=== PATIENT | male | born 1970 | race Caucasian/White ===

== ENCOUNTER 2019-03-07 | Emergency (ER) | payer OTHER, SELFPAY ==
[2019-03-07] VITALS (10 sets, daily range): BP systolic 108–157; BP diastolic 76–104; PULSE 63–90; RESP 14–19; TEMP 37.1; O2SAT 96–98; BMI 22.9
--- NOTE | 2019-03-07 00:09 | EKG12_ITS ---
Test Reason : CP Blood Pressure : / mmHG Vent. Rate : 089 BPM Atrial Rate : 089 BPM P-R Int : 114 ms QRS Dur : 082 ms QT Int : 354 ms P-R-T Axes : 063 051 039 degrees QTc Int : 430 ms Normal sinus rhythm with sinus arrhythmia Normal ECG Confirmed by HALEY OSORIO, DANISHA ([id number]), development editor DEMETRIUS NEWELL ([id number]) on 03/12/2019 9:39:13 A M Referred By: DIANNE Confirmed By:SANA DE LEON MD
--- NOTE | 2019-03-07 00:09 | RAD_ITS ---
HISTORY: CPChest PainRAD - Chest EXAM: XR Chest 2 Views: COMPARISON: None FINDINGS: # of images incl. paperwork: 2 Lungs are clear. Heart is not enlarged. Degenerative disc disease with minimal wedging to the T12 vertebral body and focal kyphosis about the T12 vertebral body is of unknown acuity. Pulmonary vascularity is distinct. No effusions. RAD/Chest PA and Lateral IMPRESSION: Lungs and heart are normal. Focal kyphosis surrounding the T12 vertebral body with degenerative disc disease. The appearance is that of a chronic disease.. at 0127 Reported and signed by: Anurag Simmons MD Electronically Signed: Anurag Simmons MD at 1:26 EDT Tel , Service support ,
[2019-03-07 00:10] LABS: Bedside Glucose 197 mg/dL (70-110)
--- NOTE | 2019-03-07 00:10 | CT_ITS ---
HISTORY: PARESTHESIA,NUMBNESS AND WEAKNESS TO LT HAND AND ARM SINCE 2030PM ,ELEVATED BP,CHEST PAINHX:ASTHMA,SEIZURES-TAKES NO MEDS TECHNIQUE: Multiple axial images were obtained of the brain without intravenous contrast. A radiation dose optimization technique was used for this scan. COMPARISON: None FINDINGS: # of images incl. paperwork: 231 Visualized portions of the paranasal sinuses and mastoid air cells are free of disease. Brain volume is normal. Munoz-white differentiation is preserved. No hydrocephalus. No acute ischemia. No acute intracranial hemorrhage. CT/Brain/Head without Contrast IMPRESSION: Normal. ASPECT 10. Individualized dose optimization techniques were used for this CT. at 0048 Reported and signed by: Anurag Simmons MD Electronically Signed: Anurag Simmons MD at 0:47 EDT Tel , Service support ,
--- NOTE | 2019-03-07 00:11 | ED.VIS.GEN ---
History of Present Illness Chief Complaint: Chest Pain Informant: Patient Onset: Yesterday Narrative: Stated that since yesterday approximately 30 hours ago he developed some substernal chest tightness. It seems to be constant. Is not on radiating. No home treatment. Current severity is mild. It is not exertion related. Last stress test 3 years ago normal. Denies any cardiac risk factors except he smoked for 4 years approximately 20 years ago. No family history of early heart attacks. Denies any pulmonary embolism or dissection risk factors. No history of hypertension, diabetes, high cholesterol. Denies any leg pain. Patient stated he is felt intermittent lightheadedness over the last 30 hours as well. He finished his shift yesterday and went home and had persistent symptoms throughout the night. Symptoms throughout the day at work and his boss dropped him off here on his way home from work. He also stated throughout this time 30 hours he has had some paresthesias and occasional weakness in his left arm. They are not a specific location but diffuse. No History of stroke or TIA. Past Medical History - Allergies and Home Meds Allergies/Adverse Reactions: Allergies No Known Allergies Allergy (Verified 03/07/19 00:13) Primary Care Physician: Care Physician,No Primary [Primary Care Provider] - Prior records reviewed: Yes Past Medical History: - - GERD, seizure Surgical History: - - Reviewed Smoking Status: Former smoker - Smoked for 4 years Alcohol: None Drugs: None Review of Systems General: Denies: Chills, Fever, Sweats Eyes: Denies: Visual changes - bilaterally, Diplopia ENT: Denies: Rhinorrhea, Sore throat Cardiovascular: Reports: Chest pain. Denies: Palpitations Respiratory: Denies: Dyspnea, Cough, Dyspnea on exertion Gastrointestinal: Denies: Abdominal pain, Nausea, Vomiting, Diarrhea, Melena, Hematochezia Genitourinary: Denies: Dysuria, Hematuria, Frequency Musculoskeletal: Denies: Back pain, Extremity Pain Skin: Denies: Rash, Wounds Neurological: Reports: Parasthesia - See HPI, Numbness. Denies: Headache, Weakness Physical Exam Vital Signs/Narrative: Vital Signs Temp Pulse Resp BP Pulse Ox 03/07/19 00:01 98.7 F 89 19 H 157/104 H 96 General: Well nourished, Well developed, No Acute Distress Head: Normocephalic, Atraumatic Eyes: Perrl, EOMI ENT: Moist mucous membranes, No rhinorrhea Neck: Supple, Nontender Cardiovascular: Regular rate, Regular rhythm, No murmurs Respiratory: No distress, CTA bilaterally, Chest nontender Abdomen: Soft, Nontender, Nondistended, Normal bowel sounds Back: Nontender, Normal Inspection Extremities: Nontender, No edema Skin: Normal color, No rash Neurological: Alert, Oriented x3, Cranial nerves II-XII grossly intact, Normal Strength, Normal Sensation, Normal Gait, - - Neuro exam normal. NIH stroke scale 0. Negative for: Normal DTR, Confused, Disoriented, Weakness, Left side facial droop, Right side facial droop Psychological: Normal affect, Normal Mood Diagnostic/Tx/Re-eval Impressions Chest X-Ray 03/07/19 00:09 IMPRESSION: Lungs and heart are normal. Focal kyphosis surrounding the T12 vertebral body with degenerative disc disease. The appearance is that of a chronic disease.. at 0127 Reported and signed by: Anurag Simmons MD Electronically Signed: Anurag Simmons MD at 1:26 EDT Tel , Service support , Brain CT 03/07/19 00:10 IMPRESSION: Normal. ASPECT 10. Individualized dose optimization techniques were used for this CT. at 0048 Reported and signed by: Anurag Simmons MD Electronically Signed: Anurag Simmons MD at 0:47 EDT Tel , Service support , Chest CTA 03/07/19 01:09 IMPRESSION: No pulmonary embolism, aortic aneurysm, aortic dissection, or pneumonia. Individualized dose optimization techniques were used for this CT. at 0331 Reported and signed by: Anurag Simmons MD Electronically Signed: Anurag Simmons MD at 3:30 EDT Tel , Service support , 03/07/19 00:09 Chest PA and Lateral [RAD] Stat 03/07/19 00:10 Brain/Head without Contrast [CT] Stat 03/07/19 01:09 CTA Chest W/WO Contrast [CT] Stat Laboratory Results 03/07/19 03/07/19 03/07/19 00:04 00:04 00:04 WBC 7.3 RBC 4.53 L Hgb 15.5 Hct 44.6 MCV 98.5 H MCH 34.2 H MCHC 34.8 RDW Std Deviation 46.4 H RDW Coeff of Jett 12.7 Plt Count 182 MPV 8.7 Immature Gran % (Auto) 0.300 Neut % (Auto) 81.9 H Lymph % (Auto) 9.3 L Burnett % (Auto) 8.0 Eos % (Auto) 0.1 Baso % (Auto) 0.4 Absolute Neuts (auto) 6.0 Absolute Lymphs (auto) 0.68 L Nucleated RBC % 0 PT INR APTT Sodium 139 Potassium 3.2 L Chloride 102 Carbon Dioxide 30.0 Anion Gap 7 BUN 8 Creatinine 0.97 Estim Creat Clear Calc 75.77 Est GFR (MDRD) Af Amer 107 Est GFR (MDRD) Non-Af 88 BUN/Creatinine Ratio 8.3 L Glucose 178 H Calcium 8.6 Troponin I < 0.015 POC Glucose 197 H 03/07/19 00:04 WBC RBC Hgb Hct MCV MCH MCHC RDW Std Deviation RDW Coeff of Jett Plt Count MPV Immature Gran % (Auto) Neut % (Auto) Lymph % (Auto) Burnett % (Auto) Eos % (Auto) Baso % (Auto) Absolute Neuts (auto) Absolute Lymphs (auto) Nucleated RBC % PT 13.1 INR 1.0 APTT 27.3 Sodium Potassium Chloride Carbon Dioxide Anion Gap BUN Creatinine Estim Creat Clear Calc Est GFR (MDRD) Af Amer Est GFR (MDRD) Non-Af BUN/Creatinine Ratio Glucose Calcium Troponin I POC Glucose - Medical Decision Making EKG obtained shows sinus rhythm at a rate of 89 with mild sinus arrhythmia. No ischemic findings. Lab work chest x-ray CT had obtained. Patient given a dose of aspirin as well as sublingual nitroglycerin. Lab work shows potassium of 3.2. CBC otherwise normal. Coags negative. Troponin negative. Patient's chest x-ray shows nothing acute. CT Angio of the test done to rule out aortic dissection due to his chest discomfort with arm paresthesia. This was negative for dissection PE or other acute abnormality. CT head was negative as well. On reevaluation the patient is resting comfortably. He still has some mild paresthesias in his left hand. His chest tightness is pretty much resolved after nitro. I recommended admission to the patient for further evaluation and treatment of his chest discomfort left arm paresthesia with intermittent weakness. He understands he may have acute coronary syndrome. He also understands he may have a stroke. I recommended admission for further evaluation including imaging studies of his brain. The patient does not want this and wants to be discharged. He is of sound mind. He will follow-up as an outpatient. He was given her referral to family doctor as well as neurology. He will return if he worsens. He understands the risk of going home. ED Disposition - Plan for ED Patient: Disposition: Against Medical Advice Diagnosis: Chest pain at rest, Arm paresthesia, left, Left arm weakness Instructions: CHEST PAIN, Uncertain Cause, Paraesthesias Referrals: Justin Dickinson MD [STAFF PHYSICIAN] - Danilo Flores MD [STAFF PHYSICIAN] -
[2019-03-07 00:16] LABS: Absolute Lymphocyte Count 0.68 X10^3/uL (0.83-4.51); Basophil# 0.03 X10^3/uL; Basophil% 0.4 % (0-1); Eosinophil# 0.01 X10^3/uL; Eosinophils% 0.1 % (0-5); Hematocrit 44.6 % (40-54); Hemoglobin 15.5 g/dL (13.0-16.5); Lymphocyte # 0.68 X10^3/ul (4.0); Lymphocyte % 9.3 % (19-41); Mean Corp Hgb Conc 34.8 g/dL (32-36); Mean Corpuscular Hgb 34.2 pg (27.0-32.0); Mean Corpuscular Volume 98.5 fL (80-94); Mean Platelet Vol. 8.7 fl (6.2-12.0); Monocyte# 0.58 X10^3/uL; NRBC Flagged by Analyzer 0 % (0-5); Neutrophil # 5.97 X10^3/uL (2.7-7.7); Neutrophil % 81.9 % (47-70); Platelet Count 182 K/mm3 (150-450); RBC Distribution Width CV 12.7 % (11.6-14.6); RBC Distribution Width SD 46.4 fl (35.1-43.9); Red Blood Count 4.53 M/mm3 (4.6-6.2); White Blood Count 7.3 K/mm3 (4.4-11.0)
[2019-03-07 00:22] LABS: Prothrombin Time (Protime)PT. 13.1 SECONDS (11.7-14.9)
[2019-03-07 00:23] LABS: Partial Thromboplast Time 27.3 Seconds (24.1-36.2)
[2019-03-07 00:31] LABS: Anion Gap 7 (5-15); BUN 8 mg/dL (7-18); BUN/Creat Ratio 8.3 RATIO (10-20); Calcium,Total 8.6 mg/dL (8.5-10.1); Chloride 102 mmol/L (98-107); Creatinine, Serum 0.97 mg/dL (0.70-1.30); EST Glomerular Filtration Rate 88 mL/min (>60); Est Glom Filt Rate - Afr Amer 107 mL/min (>60); Estimated Creatinine Clearance 75.77 ml/min; Glucose 178 mg/dL (74-106); Potassium 3.2 mmol/L (3.5-5.1); Sodium Level 139 mmol/L (136-145)
[2019-03-07] MEDS: Aspirin 81 MG TAB.CHEW 324 MG PO (00:45)
[2019-03-07] MEDS: Nitroglycerin SL (ED/IMG/CATH) 0.4 MG TABLET SUBLINGUAL ×3 (00:46→00:55)
--- NOTE | 2019-03-07 01:09 | CT_ITS ---
HISTORY: Chest pain for one day. Numbness and weakness the left hand and arm. Evaluate for dissection and the speech and with asthma. Technique: Following the uneventful administration of 75 mL of Isovue-370 contiguous helical images were obtained through the chest. 2-D reformats were performed on the acquisition scanner. The only comparison imaging is a CT scan of the head and pelvis from April 10, 2017 which begins within the heart and extends down more inferiorly. A chest x-ray is also available from about an hour earlier. 683 images Findings: Lungs are clear. No effusions. A tiny amount of gas is associated with the right clavicular manubrial joint and to a lesser degree the left clavicular manubrial joint. No rib lesions are perceived. The patient has 13 oly of ribs. The patient has a focal kyphosis at the T13 vertebral body due to some minimal wedging to the T13 vertebral body, but mostly due to the T12-L1 degenerative disc disease. Anterior enthesophytes are present at many levels. T13 is minimally posteriorly subluxed on L1. L1 is minimally posteriorly subluxed on L2. The lowest ribs at T13 are small There is minimal elongation to the thoracic aorta. There is no aneurysm or dissection. The heart is not enlarged. No axillary, mediastinal, nor hilar adenopathy. Timing of contrast bolus is more optimized for the aortic arch and the pulmonary veins than the pulmonary arteries. No pulmonary emboli are perceived. The negative predictive value of this study to exclude pulmonary emboli is diminished relative to if the contrast bolus has been timed optimized for the pulmonary artery. The thyroid gland is not enlarged. The gallbladder remains. The liver, spleen, pancreas, and adrenal glands are normal. Mild hydronephrosis to the kidneys is suspected. The abdominal aorta is normal. Stomach is mostly decompressed. CT/CTA Chest W/WO Contrast IMPRESSION: No pulmonary embolism, aortic aneurysm, aortic dissection, or pneumonia. Individualized dose optimization techniques were used for this CT. at 0331 Reported and signed by: Anurag Simmons MD Electronically Signed: Anurag Simmons MD at 3:30 EDT Tel , Service support ,
[2019-03-07] MEDS: 0.9% Normal Saline 1,000 ML 1000 ML IV (01:42)
--- NOTE | 2019-03-07 03:56 | NURSING ---
Pt explained risk of leaving AMA by nurse and Dr. Flynn. no further questions at this time.
== END 2019-03-07 03:56 | disposition left against medical advice (07) ==
PROVIDERS: Emergency Provider Emergency Medicine
DX: R07.9 Chest pain, unspecified (principal); R53.1 Weakness; R20.2 Paresthesia of skin; K21.9 Gastro-esophageal reflux disease without esophagitis; Z87.891 Personal history of nicotine dependence
CPT/HCPCS: 70450; 71046; 71275; 80048; 82962; 84484; 85025; 85610; 85730; 93005; 96360; 99285; J7030; Q9967

== ENCOUNTER 2019-06-01 18:20 | Emergency (ER) | payer OTHER, SELFPAY ==
[2019-03-07 00:01] VITALS: BMI 22.9
[2019-06-01 18:21] VITALS: BP 162/89; PULSE 130; RESP 16; TEMP 37.1; O2SAT 98; BMI 22.4
--- NOTE | 2019-06-01 18:55 | RAD_ITS ---
STUDY: X-RAY CHEST REASON FOR EXAM: Male, 48 years old. chest pain TECHNIQUE: Frontal view of the chest was performed COMPARISON: 07 March 2019 FINDINGS: The lungs are clear and expanded. There is no demonstrated pleural abnormality. Normal size heart. Normal mediastinum and vinnie. Normal visualized pulmonary arteries. Normal visualized aortic arch and descending thoracic aorta. Normal visualized thoracic spine. Normal visualized ribs, clavicles, and shoulders. There is no demonstrated abnormality of the visualized soft tissue structures of the upper abdomen. RAD/Chest 1 View (Portable) IMPRESSION: Normal x-ray examination of the chest. Electronically Signed: Tanja Mchugh, at 19:16 EST Tel , Service support ,
--- NOTE | 2019-06-01 18:55 | EKG12_ITS ---
Test Reason : Blood Pressure : / mmHG Vent. Rate : 102 BPM Atrial Rate : 102 BPM P-R Int : 118 ms QRS Dur : 082 ms QT Int : 330 ms P-R-T Axes : 056 043 040 degrees QTc Int : 430 ms Sinus tachycardia Otherwise normal ECG Confirmed by SANDRA OSORIO, JOLANTA ([id number]), writer editor DEMETRIUS NEWELL ([id number]) on 06/03/2019 8:59:41 AM Referred By: DAO Confirmed By:JOLANTA FLORES MD
--- NOTE | 2019-06-01 18:55 | ED.VISSUMM ---
- ER Visit Summary Date of Service: 06/01/19 Chief Complaint: I do not feel well History of Present Illness: The patient is a 48 M states he has had intermittent lightheadedness and decreased energy. Mild nausea but no vomiting or diarrhea. No fever or chills. No dysuria. No melena. No constipation. No chest pain or abdominal pain. Patient just says he has not felt well today and he went to be evaluated. He felt like his heart was going faster than normal. But he denied chest pain or shortness of breath. Physical Examination: Middle-aged male no acute distress. Vital signs are stable afebrile. Pulse ox 98% on room air no signs hypoxia. On my exam it is not that high. Closer to 110. HEENT exam unremarkable. Neck nontender. Lungs clear to auscultation bilaterally. Heart tachycardic rate about 110 no murmur. Abdomen soft nontender normal bowel sounds no peritoneal signs. Remedies moves all 4. Equal symmetrical radial pulses. Calves are nontender without edema or cords. Normal motor strength both upper and lower extremities. Normal range of motion. Neurologically is awake alert with no focal motor deficits. Test Results: Portable 1 view was read as normal both by myself and the radiologist. Normal cardiac silhouette and lung mathew. EKG sinus rhythm rate of 102 no acute signs of [place] or ischemia. White count of 5 hemoglobin 14 no bands. Chemistries normal. Troponin normal. EKG is unchanged from prior. Emergency Department Course and Treatment: Repeat exam patient is doing well at 1950 p.m. and will be discharged home. Treatment Plan: Patient with malaise and reported subjective accelerated heart rate. Disposition: dc Impression: Acute generalized malaise of uncertain etiology This note was generated with [employer] dictation software. It may contain incorrect words, spelling, and punctuation that were not noted in review of the chart prior to signing ED Disposition - Plan for ED Patient: Referrals: Care Physician,No Primary [Primary Care Provider] -
[2019-06-01 19:28] LABS: Absolute Neutrophil Count 4.7 X10^3/uL (2.0-7.7); Basophil# 0.01 X10^3/uL; Basophil% 0.2 % (0-1); Eosinophil# 0.01 X10^3/uL; Eosinophils% 0.2 % (0-5); Hematocrit 42.5 % (40-54); Hemoglobin 14.8 g/dL (13.0-16.5); Lymphocyte % 7.3 % (19-41); Mean Corp Hgb Conc 34.8 g/dL (32-36); Mean Corpuscular Hgb 34.1 pg (27.0-32.0); Mean Corpuscular Volume 97.9 fL (80-94); Monocyte# 0.34 X10^3/uL; Monocyte% 6.2 % (0-10); NRBC Flagged by Analyzer 0 % (0-5); Neutrophil # 4.67 X10^3/uL (2.7-7.7); Neutrophil % 85.4 % (47-70); POSITIVE DIFFERENTIAL YES; Platelet Count 171 K/mm3 (150-450); RBC Distribution Width CV 11.9 % (11.6-14.6); RBC Distribution Width SD 43.2 fl (35.1-43.9); Red Blood Count 4.34 M/mm3 (4.6-6.2); White Blood Count 5.5 K/mm3 (4.4-11.0)
[2019-06-01 19:31] LABS: Anion Gap 7 (5-15); BUN 9 mg/dL (7-18); BUN/Creat Ratio 9.9 RATIO (10-20); Calcium,Total 8.2 mg/dL (8.5-10.1); Chloride 106 mmol/L (98-107); Creatinine, Serum 0.91 mg/dL (0.70-1.30); EST Glomerular Filtration Rate 95 mL/min (>60); Est Glom Filt Rate - Afr Amer 115 mL/min (>60); Estimated Creatinine Clearance 80.76 ml/min; Glucose 153 mg/dL (74-106); Potassium 3.7 mmol/L (3.5-5.1); Sodium Level 140 mmol/L (136-145)
[2019-06-01 19:38] LABS: Differential Indicated SCAN CRITERIA MET
--- NOTE | 2019-06-01 19:51 | ED.DEP ---
ED Disposition - Plan for ED Patient: Disposition: Home or Assisted Living Instructions: WEAKNESS, Unk Cause Referrals: Layo Leon MD [STAFF PHYSICIAN] - 3-5 Days if not improving Additional Instructions: All your tests, x-rays and EKG were normal today. I referred you to a local doctor follow-up if not improving. Plenty of fluids and rest return to the ER feeling worse.
[2019-06-01 19:59] VITALS: BP 130/88; PULSE 87; RESP 16; O2SAT 97
--- NOTE | 2019-06-01 20:00 | ED.RN ---
REVIEWED D/C INSTRUCTIONS, FOLLOW UP CARE, AND S/S THAT WOULD WARRANT A RETURN TO THE ED WITH PT. PT VERBALIZED AN UNDERSTANDING AND DENIES FURTHER QUESTIONS FOR THIS RN. PT SKIN P/W/D, RESP EVEN AND UNLABORED, PT A&O X 3, NO DISTRESS NOTED. PT AMBULATED OUT OF ED, GAIT STEADY.
[2019-06-01 20:36] LABS: Differential Comment SCANNED; Platelet Estimate ADEQUATE (ADEQ); Red Cell Morphology NORM C+C NORMAL (NORM C&C)
== END 2019-06-01 20:01 | disposition home or self-care (01) ==
PROVIDERS: Emergency Provider Emergency Medicine
DX: R53.81 Other malaise (principal); F17.220 Nicotine dependence, chewing tobacco, uncomplicated
CPT/HCPCS: 71045; 80048; 84484; 85025; 93005; 99285; A4216

== ENCOUNTER 2019-11-02 09:22 | Emergency (ER) | payer OTHER, SELFPAY ==
[2019-11-02 09:24] VITALS: BP 149/91; PULSE 84; RESP 17; TEMP 36.4; O2SAT 94; BMI 22.5
[2019-11-02 09:33] VITALS: BMI 22.5
--- NOTE | 2019-11-02 09:40 | CT_ITS ---
STUDY: CT BRAIN WITHOUT CONTRAST REASON FOR EXAM: Male, 49 years old. Numbness and tingling in the left hand and leg. History of seizure. RADIATION DOSAGE (If Supplied By Facility): CTDIvol = ( 44.99 ) mGy, DLP = ( 779.24 ) mGycm TECHNIQUE: Transaxial CT imaging of the brain was performed without administration of intravenous contrast material. Coronal and sagittal reconstructions were performed. Individualized dose optimization techniques were used for this CT. COMPARISON: CT head without contrast 03/07/2019. FINDINGS: Normal soft tissue structures. Normal calvarium. Normal size ventricles and extra-axial spaces for the patient''s age. Normal white matter tracts of the cerebral hemispheres. Normal basal ganglia and thalami. Normal brainstem. Normal cerebellum. There is no intracranial hemorrhage. There are no findings of an acute ischemic infarction. Normal visualized paranasal sinuses. CT/Brain/Head without Contrast IMPRESSION: Normal unenhanced CT scan of the brain and unchanged when compared to 03/07/2019. Electronically Signed: Jf Lopez MD at 10:31 EDT , Service support ,
--- NOTE | 2019-11-02 09:41 | EKG12_ITS ---
Test Reason : NEURO Blood Pressure : / mmHG Vent. Rate : 067 BPM Atrial Rate : 067 BPM P-R Int : 122 ms QRS Dur : 082 ms QT Int : 392 ms P-R-T Axes : 051 054 049 degrees QTc Int : 414 ms Normal sinus rhythm Normal ECG Confirmed by JOLANTA FLORES MD ([id number]), book editor TONY HERNANDEZ ([id number]) on 11/04/2019 10:13:59 AM Referred By: JOCELYN Confirmed By:JOLANTA FLORES MD
--- NOTE | 2019-11-02 09:42 | ED.VISSUMM ---
- ER Visit Summary Date of Service: 11/02/19 Chief Complaint: Paresthesias History of Present Illness: The patient is a 49 M who presents with paresthesias that began approximately 30 minutes prior to arrival. Patient states it was in his left forearm and wrist area and left leg. Patient states that he tried to stand up from a seated position and fell backwards. Patient states he was able to stand on his second attempt. Patient denies any weakness. Patient states his paresthesias are improving. Patient denies any headaches. Patient denies any nausea or vomiting. Patient denies any chest pain. Physical Examination: Vital signs are stable. Patient is afebrile. Patient is in no acute distress. Cranial nerves II through XII are intact. Strength is 5/5 bilaterally upper and lower extremities. There are no sensory deficits. Deep tendon reflexes are 2+/4 bilaterally in the upper and lower extremities. Ckhzfi-at-pmzv and tvok-ci-mqtr is intact. Pupils are equal, round, and reactive to light bilaterally. Extraocular muscles are intact. There are no visual field deficits. Neck is supple. Trachea is midline. There is no JVD. Heart was regular rate and rhythm. Lungs are clear and equal bilaterally. Abdomen is soft. Bowel sounds are normal. There is no tenderness. Test Results: EKG shows normal sinus rhythm with a rate of 67. There are no acute ST or T wave changes. CBC and metabolic profile were within normal limits. Urinalysis does not show any evidence of urinary tract infection. CT scan of the brain was obtained. There is no acute intracranial abnormality. This was unchanged compared to CT scan of 03/07/2019. This was interpreted by the radiologist and reviewed by myself. Emergency Department Course and Treatment: Stroke team was not activated since the patient's history changed between the triage nurse and myself. Patient also contradicted himself with his symptoms on my exam. Since his history of paresthesias was not exactly reliable and since his neurologic exam was normal, I do not feel stroke team was necessary. Patient was advised of his findings. Patient was given IV fluids and Zofran. Patient is feeling better on reevaluation. Patient was instructed to follow-up with his primary care physician in 5 to 7 days. Patient understood and was agreeable with the plan. All questions were answered. Disposition: Discharge home Impression: 1. Paresthesias This note was generated with [employer] software. It may contain incorrect words, spelling, and punctuation that were not noted in review of the chart prior to signing ED Disposition - Plan for ED Patient: Disposition: Home or Assisted Living Diagnosis: Paresthesias Instructions: ED Paraesthesias Referrals: Hilda Riddle MD [STAFF PHYSICIAN] - 5-7 Days
[2019-11-02 09:52] LABS: Absolute Lymphocyte Count 0.59 X10^3/uL (0.83-4.51); Absolute Neutrophil Count 6.6 X10^3/uL (2.0-7.7); Basophil# 0.03 X10^3/uL; Basophil% 0.4 % (0-1); Eosinophil# 0.01 X10^3/uL; Eosinophils% 0.1 % (0-5); Hematocrit 43.3 % (40-54); Hemoglobin 14.7 g/dL (13.0-16.5); Lymphocyte # 0.59 X10^3/ul (4.0); Lymphocyte % 7.7 % (19-41); Mean Corp Hgb Conc 33.9 g/dL (32-36); Mean Corpuscular Hgb 34.2 pg (27.0-32.0); Mean Corpuscular Volume 100.7 fL (80-94); Mean Platelet Vol. 8.2 fl (6.2-12.0); Monocyte# 0.42 X10^3/uL; Monocyte% 5.5 % (0-10); NRBC Flagged by Analyzer 0 % (0-5); Neutrophil # 6.55 X10^3/uL (2.7-7.7); POSITIVE DIFFERENTIAL YES; Platelet Count 178 K/mm3 (150-450); RBC Distribution Width CV 12.5 % (11.6-14.6); RBC Distribution Width SD 46.3 fl (35.1-43.9); White Blood Count 7.6 K/mm3 (4.4-11.0)
[2019-11-02] MEDS: 0.9% Normal Saline 1,000 ML 1000 ML IV (09:56)
[2019-11-02] MEDS: Ondansetron 4 MG/2 ML Vial IV (09:56)
[2019-11-02 09:57] VITALS: BP 133/76; BP 140/81; BP 142/83; PULSE 69; PULSE 70; PULSE 73
[2019-11-02 10:06] LABS: Mucous, Urine 0 SEEN /hpf (<or=2+); Squamous Epithelial Cells - UA 0 SEEN /hpf (0-5)
[2019-11-02 10:10] LABS: ALB/GLOB Ratio 1.1 RATIO (0.9-2.4); AST(SGOT) 38 U/L (15-37); Alanine Aminotransfer ALT/SGPT 32 U/L (16-61); Albumin, Serum 3.7 g/dL (3.2-5.0); Alkaline Phosphatase 56 U/L (45-117); Anion Gap 7 (5-15); BUN 13 mg/dL (7-18); BUN/Creat Ratio 17.4 RATIO (10-20); Calcium,Total 8.4 mg/dL (8.5-10.1); Chloride 103 mmol/L (98-107); Creatinine, Serum 0.75 mg/dL (0.70-1.30); EST Glomerular Filtration Rate 118 mL/min (>60); Est Glom Filt Rate - Afr Amer 143 mL/min (>60); Estimated Creatinine Clearance 96.94 ml/min; Globulin 3.4 g/dL (2.2-4.2); Glucose 95 mg/dL (74-106); Potassium 3.7 mmol/L (3.5-5.1); Protein, Total 7.1 g/dL (6.4-8.2); Sodium Level 139 mmol/L (136-145)
[2019-11-02 10:10] LABS: Color, Urine Yellow (Yellow); Glucose, Dipstick 100 mg/dl (Normal); Ketone-Dipstick 50 mg/dl (Negative); Leukocyte Esterase-Dipstick Negative /ul (Negative); Nitrite-Dipstick Negative (Negative); Occult Blood-Urine 10 /ul (Negative); Protein-Dipstick 15 mg/dl (Negative); Urine Bilirubin Dipstick Negative (Negative); Urine Clarity Clear (Clear); Urine Urobilinogen Normal (Normal)
[2019-11-02 10:15] LABS: Differential Indicated SCAN CRITERIA MET
[2019-11-02 10:17] LABS: Bacteria 1+ /hpf (None Seen); Red Blood Cells-Urine 0-5 SEEN /hpf (0-5); White Blood Cells 0-5 SEEN /hpf (0-5)
[2019-11-02 10:32] LABS: Differential Comment SCANNED
[2019-11-02 11:04] VITALS: BP 128/77; PULSE 66; O2SAT 98
== END 2019-11-02 11:10 | disposition home or self-care (01) ==
LOC: ED 10:58
PROVIDERS: Emergency Provider Emergency Medicine
DX: R20.2 Paresthesia of skin (principal)
CPT/HCPCS: 70450; 80053; 81001; 84484; 85025; 93005; 96361; 96374; 99285; J7030; A4216; J2405

== ENCOUNTER 2019-11-21 18:20 | Emergency (ER) | payer OTHER, SELFPAY ==
[2019-11-21 18:23] VITALS: BP 106/62; PULSE 82; RESP 19; TEMP 36.7; O2SAT 95; BMI 21.2
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
--- NOTE | 2019-11-21 18:54 | EKG12_ITS ---
Test Reason : CP Blood Pressure : / mmHG Vent. Rate : 074 BPM Atrial Rate : 074 BPM P-R Int : 126 ms QRS Dur : 090 ms QT Int : 374 ms P-R-T Axes : 063 065 033 degrees QTc Int : 415 ms Poor data quality, interpretation may be adversely affected Normal sinus rhythm Normal ECG Confirmed by IRAIS OSORIO, MICHELLE ([id number]), photography editor DEMETRIUS NEWELL ([id number]) on 11/25/2019 10:54:14 AM Referred By: ED PHYSICIAN Confirmed By:MICHELLE BRAXTON MD
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
[2019-11-21 19:09] LABS: Absolute Lymphocyte Count 1.23 X10^3/uL (0.83-4.51); Absolute Neutrophil Count 2.1 X10^3/uL (2.0-7.7); Basophil# 0.03 X10^3/uL; Basophil% 0.8 % (0-1); Eosinophil# 0.11 X10^3/uL; Eosinophils% 2.8 % (0-5); Hematocrit 45.9 % (40-54); Hemoglobin 15.5 g/dL (13.0-16.5); Lymphocyte # 1.23 X10^3/ul (4.0); Lymphocyte % 30.8 % (19-41); Mean Corp Hgb Conc 33.8 g/dL (32-36); Mean Corpuscular Hgb 34.1 pg (27.0-32.0); Mean Corpuscular Volume 100.9 fL (80-94); Mean Platelet Vol. 8.8 fl (6.2-12.0); Monocyte% 12.5 % (0-10); NRBC Flagged by Analyzer 0 % (0-5); Neutrophil # 2.11 X10^3/uL (2.7-7.7); Neutrophil % 52.8 % (47-70); Platelet Count 186 K/mm3 (150-450); RBC Distribution Width SD 45.3 fl (35.1-43.9); Red Blood Count 4.55 M/mm3 (4.6-6.2)
[2019-11-21 19:15] VITALS: BP 98/62; PULSE 77; RESP 14; O2SAT 95
[2019-11-21 19:22] LABS: AST(SGOT) 20 U/L (15-37); Alanine Aminotransfer ALT/SGPT 24 U/L (16-61); Albumin, Serum 3.7 g/dL (3.2-5.0); Alkaline Phosphatase 55 U/L (45-117); Anion Gap 9 (5-15); BUN 14 mg/dL (7-18); BUN/Creat Ratio 16.7 RATIO (10-20); Calcium,Total 9.1 mg/dL (8.5-10.1); Chloride 110 mmol/L (98-107); Creatinine, Serum 0.84 mg/dL (0.70-1.30); EST Glomerular Filtration Rate 104 mL/min (>60); Est Glom Filt Rate - Afr Amer 126 mL/min (>60); Estimated Creatinine Clearance 99.33 ml/min; Globulin 3.6 g/dL (2.2-4.2); Glucose 90 mg/dL (74-106); Potassium 3.8 mmol/L (3.5-5.1); Protein, Total 7.3 g/dL (6.4-8.2); Sodium Level 145 mmol/L (136-145)
[2019-11-21 20:30] VITALS: BP 102/73; PULSE 74; RESP 20; O2SAT 97
[2019-11-21 20:38] LABS: Color, Urine Yellow (Yellow); Glucose, Dipstick Normal (Normal); Ketone-Dipstick Negative (Negative); Leukocyte Esterase-Dipstick Negative /ul (Negative); Nitrite-Dipstick Negative (Negative); Occult Blood-Urine Negative /ul (Negative); Protein-Dipstick Negative (Negative); Urine Bilirubin Dipstick Negative (Negative); Urine Clarity Clear (Clear); Urine Urobilinogen Normal (Normal)
[2019-11-21 20:53] LABS: Amphetamine Urine VISTA NEGATIVE (<1000 ng/mL); Barbiturate Urine VISTA NEGATIVE (< 200 ng/mL); Benzodiazepine Urine VISTA NEGATIVE (< 200 ng/mL); Cocaine Urine VISTA NEGATIVE (< 300 ng/mL); Ecstacy Urine VISTA NEGATIVE (< 500 ng/mL); Methadone Urine VISTA NEGATIVE (< 300 ng/mL); PCP Urine VISTA NEGATIVE (< 25 ng/mL); THC Urine VISTA NEGATIVE (< 50 ng/mL); Vista UDS pH Range 5
--- NOTE | 2019-11-21 21:40 | ED.VIS.GEN ---
History of Present Illness Chief Complaint: ETOH Intox Narrative: Patient was found near a park bench, the thought is that he may have fallen off of the park bench, he admits to alcohol but he tells me he did not have too much to drink. There was a forehead abrasion, he denies any other pain. He is somnolent at first but I aroused him and he aroused quite well he was slurring his speech but gave me a reasonable history. Past Medical History - Allergies and Home Meds Allergies/Adverse Reactions: Allergies No Known Allergies Allergy (Verified 11/02/19 09:23) Primary Care Physician: Care Physician,No Primary [Primary Care Provider] - Past Medical History: - - Alcoholism Surgical History: - - Reviewed Smoking Status: Never smoker Review of Systems All systems negative except as indicated General: Reports: - - Denies head injury Eyes: Reports: Visual changes - bilaterally Cardiovascular: Denies: Chest pain Respiratory: Denies: Dyspnea Gastrointestinal: Denies: Abdominal pain Musculoskeletal: Denies: Back pain Skin: Denies: Rash Neurological: Denies: Headache Hematologic: Denies: Easy bruising Physical Exam Vital Signs/Narrative: Vital Signs Temp Pulse Resp BP Pulse Ox 11/21/19 20:30 74 20 H 102/73 97 11/21/19 19:15 77 14 98/62 95 11/21/19 18:23 98.1 F 82 19 H 106/62 95 General: - - Patient does appear intoxicated, he is now for mentation he is slurring his speech, he admits to alcohol. Head: Normocephalic, - - Small forehead abrasion Eyes: Perrl, EOMI ENT: Moist mucous membranes Neck: Supple Cardiovascular: Regular rate, Regular rhythm Respiratory: No distress, CTA bilaterally Abdomen: Soft, Nontender Back: Nontender, Normal Inspection Extremities: Nontender, No edema Skin: Normal color, No rash Neurological: - - Patient is somnolent but arousable when he arouses he gives me a reasonable history, he has normal strength and sensation bilaterally no gross focal deficit Diagnostic/Tx/Re-eval - Medical Decision Making His alcohol level is quite elevated, CAT scan and blood work is otherwise unremarkable. He will be observed until fully lucid and coherent. Will be turned over to the oncoming emergency doctor ED Disposition - Plan for ED Patient: Disposition: Home or Assisted Living Diagnosis: Alcohol intoxication, Head injury Instructions: ED INTOXICATION Alcohol Referrals: Care Physician,No Primary [Primary Care Provider] - 3-5 Days
[2019-11-21 21:51] VITALS: BP 102/60; PULSE 74; RESP 18; O2SAT 97
[2019-11-21 23:00] VITALS: BP 90/62; PULSE 79; RESP 18; O2SAT 95
[2019-11-22] VITALS (7 sets, daily range): BP systolic 91–107; BP diastolic 53–70; PULSE 60–69; RESP 14–20; O2SAT 94–98
== END 2019-11-22 07:59 | disposition home or self-care (01) ==
PROVIDERS: Emergency Provider Emergency Medicine
DX: F10.129 Alcohol abuse with intoxication, unspecified (principal); S00.81XA Abrasion of other part of head, initial encounter; W17.89XA Other fall from one level to another, initial encounter; Y93.89 Activity, other specified; Y92.89 Other specified places as the place of occurrence of the external cause; Y99.8 Other external cause status
CPT/HCPCS: 70450; 72125; 80053; 80307; 80320; 81002; 85025; 93005; 99284; A4216; G0480

== ENCOUNTER 2020-04-26 19:19 | Emergency (ER) | payer OTHER, SELFPAY ==
[2020-04-26 19:21] VITALS: BP 145/86; PULSE 105; RESP 18; TEMP 35.9; O2SAT 99; BMI 23.1
[2020-04-26 19:23] VITALS: BP 145/86; PULSE 106; RESP 18; TEMP 35.9; O2SAT 99
[2020-04-26 19:24] VITALS: BP 145/86; PULSE 106; RESP 18; TEMP 35.9; O2SAT 99
--- NOTE | 2020-04-26 19:45 | EKG12_ITS ---
Test Reason : SOB Blood Pressure : / mmHG Vent. Rate : 091 BPM Atrial Rate : 091 BPM P-R Int : 120 ms QRS Dur : 086 ms QT Int : 340 ms P-R-T Axes : 061 043 030 degrees QTc Int : 418 ms Normal sinus rhythm Normal ECG Confirmed by IRAIS OSORIO, MICHELLE ([id number]), consumer science teacher DEMETRIUS NEWELL ([id number]) on 04/28/2020 9:40:30 AM Referred By: SHANDA Confirmed By:MICHELLE BRAXTON MD
--- NOTE | 2020-04-26 19:45 | CT_ITS ---
STUDY: CT BRAIN WITHOUT CONTRAST REASON FOR EXAM: Male, 49 years old. LEFT ARM NUMBNESS X 1 DAY, SOB, DRY MOUTH, CHILLS RADIATION DOSAGE (If Supplied By Facility): CTDIvol = ( 44.99 ) mGy, DLP = ( 796.11 ) mGycm TECHNIQUE: Transaxial CT imaging of the brain was performed without administration of intravenous contrast material. Individualized dose optimization techniques were used for this CT. COMPARISON: 11/21/2019. FINDINGS: Normal soft tissue structures. Normal calvarium. Normal size ventricles and extra-axial spaces for the patient''s age. Normal white matter tracts of the cerebral hemispheres. Normal basal ganglia and thalami. Normal brainstem. Normal cerebellum. There is no intracranial hemorrhage. There are no findings of an acute ischemic infarction. Normal visualized paranasal sinuses. CT/Brain/Head without Contrast IMPRESSION: Normal unenhanced CT scan of the brain. Electronically Signed: Arlene Jarvis MD at 20:58 EST Tel , Service support ,
--- NOTE | 2020-04-26 20:10 | RAD_ITS ---
STUDY: X-RAY CHEST REASON FOR EXAM: Male, 49 years old. chest pain, arm numbness, shortness of breath TECHNIQUE: 2 AP portable view of the chest. COMPARISON: June 01, 2019 FINDINGS: The lungs are clear and expanded. There is no demonstrated pleural abnormality. Normal size heart. Normal mediastinum and vinnie. Normal visualized pulmonary arteries. Normal visualized aortic arch and descending thoracic aorta. Normal visualized thoracic spine. Normal visualized ribs, clavicles, and shoulders. There is no demonstrated abnormality of the visualized soft tissue structures of the upper abdomen. RAD/Chest 1 View (Portable) IMPRESSION: Normal x-ray examination of the chest. Electronically Signed: Jerrod Clark MD at 20:40 EST , Service support ,
[2020-04-26] MEDS: 0.9% Normal Saline 1,000 ML 1000 ML IV (20:16)
[2020-04-26 20:19] VITALS: O2SAT 99
[2020-04-26 20:23] VITALS: BP 132/80; PULSE 96; RESP 18; TEMP 35.9; O2SAT 99
[2020-04-26 20:42] LABS: Absolute Neutrophil Count 3.9 X10^3/uL (2.0-7.7); Basophil# 0.01 X10^3/uL; Basophil% 0.2 % (0-1); Eosinophil# 0.06 X10^3/uL; Eosinophils% 1.2 % (0-5); Hemoglobin 15.5 g/dL (13.0-16.5); Lymphocyte % 15.5 % (19-41); Mean Corp Hgb Conc 35.2 g/dL (32-36); Mean Corpuscular Hgb 33.6 pg (27.0-32.0); Mean Corpuscular Volume 95.4 fL (80-94); Mean Platelet Vol. 8.8 fl (6.2-12.0); Monocyte# 0.39 X10^3/uL; Monocyte% 7.6 % (0-10); NRBC Flagged by Analyzer 0 % (0-5); Neutrophil # 3.87 X10^3/uL (2.7-7.7); Neutrophil % 75.1 % (47-70); Platelet Count 228 K/mm3 (150-450); RBC Distribution Width CV 12.1 % (11.6-14.6); RBC Distribution Width SD 42.4 fl (35.1-43.9); Red Blood Count 4.61 M/mm3 (4.6-6.2); White Blood Count 5.2 K/mm3 (4.4-11.0)
[2020-04-26 20:49] VITALS: BP 132/80; PULSE 96; RESP 18
[2020-04-26 21:03] LABS: AST(SGOT) 17 U/L (15-37); Alanine Aminotransfer ALT/SGPT 28 U/L (16-61); Albumin, Serum 3.6 g/dL (3.2-5.0); Alkaline Phosphatase 55 U/L (45-117); Anion Gap 8 (5-15); BUN 13 mg/dL (7-18); BUN/Creat Ratio 14.3 RATIO (10-20); Calcium,Total 8.9 mg/dL (8.5-10.1); Chloride 110 mmol/L (98-107); Creatinine, Serum 0.91 mg/dL (0.70-1.30); EST Glomerular Filtration Rate 94 mL/min (>60); Est Glom Filt Rate - Afr Amer 114 mL/min (>60); Globulin 3.7 g/dL (2.2-4.2); Glucose 123 mg/dL (74-106); Potassium 3.7 mmol/L (3.5-5.1); Protein, Total 7.3 g/dL (6.4-8.2); Sodium Level 143 mmol/L (136-145)
--- NOTE | 2020-04-26 21:24 | ED.VISSUMM ---
- ER Visit Summary Date of Service: 04/26/20 Chief Complaint: Shortness of breath and left arm numbness History of Present Illness: The patient is a 49 M with no primary care physician. He is a poor informant. He reports that he has left arm numbness that began yesterday. Is actually improved today. He also complains shortness of breath began today. Patient complains of subjective fever. He denies cough. He ports he does have mild shortness of breath. He denies any chest pain. Reports he has been nausea and vomited once. No blood in his emesis. He complains of generalized weakness. He denies any other neurologic symptoms. No numbness in his legs. No weakness. No vertigo or change in his vision. No difficulty speaking. Physical Examination: Vitals: Stable. Afebrile. General: Well-nourished and well-developed. Head: Normocephalic atraumatic. Neck: Supple, no lymphadenopathy. No JVD. Nontender. Cardiovascular: Regular rate and rhythm. No murmurs. Respiratory: No respiratory distress. Clear to auscultation bilaterally. Abdominal: Soft, nontender, nondistended, normal bowel sounds. No guarding, rebound, or peritoneal signs. Back: Nontender. Extremities: Nontender, no edema. Skin: Normal color, no rash. Neurologic: Alert and oriented ?3. Cranial nerves II through XII are intact. Normal strength and sensation. He does have normal sensation to light touch throughout his entire left arm. He has a 2+ radial pulse. His NIH scale is 0. Psych: Normal affect. Test Results: EKG is sinus at [address] changes. Troponin is negative. FTs normal. Chem-7 shows a chloride of 110 and glucose 123. CBC shows 7 neutrophils 75 lymphocytes 16. Clinical Impression(s) from Imaging Studies Brain CT 04/26/20 19:45 IMPRESSION: Normal unenhanced CT scan of the brain. Electronically Signed: Arlene Jarvis MD at 20:58 EST Tel , Service support , Chest X-Ray 04/26/20 20:10 IMPRESSION: Normal x-ray examination of the chest. Electronically Signed: Jerrod Clark MD at 20:40 EST , Service support , Emergency Department Course and Treatment: Patient rested comfortably without complaint. Treatment Plan: Patient be discharged instructions to follow-up the [facility] in 1 to 2 days for another exam. Return to the emergency department for any worsening symptoms. Disposition: To home in improved and stable condition. Impression: 1. Paresthesias left arm. 2. Dyspnea. This note was generated with Everpl[employer] dictation software. It may contain incorrect words, spelling, and punctuation that were not noted in review of the chart prior to signing ED Disposition - Plan for ED Patient: Disposition: Home or Assisted Living Instructions: ED Paraesthesias Referrals: Camryn [facility] [NON-STAFF] - As soon as possible
== END 2020-04-26 21:56 | disposition home or self-care (01) ==
PROVIDERS: Emergency Provider Emergency Medicine
DX: R20.2 Paresthesia of skin (principal); R06.00 Dyspnea, unspecified; K21.9 Gastro-esophageal reflux disease without esophagitis; Z87.891 Personal history of nicotine dependence
CPT/HCPCS: 70450; 71045; 80053; 84484; 85025; 93005; 96360; 96361; 99284; J7030; A4216

== ENCOUNTER 2020-06-13 19:47 | Emergency (ER) | payer OTHER, SELFPAY ==
[2020-06-13 19:48] VITALS: BP 166/105; PULSE 117; RESP 15; TEMP 36.9; O2SAT 98; BMI 23.4
[2020-06-13 20:15] VITALS: BP 140/88; PULSE 108; RESP 25
--- NOTE | 2020-06-13 20:15 | CT_ITS ---
STUDY: CT BRAIN WITHOUT CONTRAST REASON FOR EXAM: Male, 49 years old. Left arm numbness RADIATION DOSAGE (If Supplied By Facility): CTDIvol = ( 44.99 ) mGy, DLP = ( 796.11 ) mGycm TECHNIQUE: Transaxial CT imaging of the brain was performed without administration of intravenous contrast material. Individualized dose optimization techniques were used for this CT. COMPARISON: 11/21/19 FINDINGS: There is no acute bleed or infarct. There are normal white matter tracts. There is a stable 3 mm colloid cyst (image 42 series 601). The ventricles are normal in configuration. There is no hydrocephalus. The visualized paranasal sinuses are clear. The mastoid air cells are well aerated. There is no skull fracture. CT/Brain/Head without Contrast IMPRESSION: No acute intracranial abnormality. Electronically Signed: Jhonatan Oleary MD at 20:59 EST Tel , Service support ,
--- NOTE | 2020-06-13 20:15 | EKG12_ITS ---
Test Reason : DYSRHYTHMIA Blood Pressure : / mmHG Vent. Rate : 098 BPM Atrial Rate : 098 BPM P-R Int : 118 ms QRS Dur : 078 ms QT Int : 330 ms P-R-T Axes : 057 032 033 degrees QTc Int : 421 ms Normal sinus rhythm Normal ECG Confirmed by SANDRA OSORIO, JOLANTA ([id number]), editor department TONY HERNANDEZ ([id number]) on 06/16/2020 6:56:43 AM Referred By: ROSMERY Confirmed By:JOLANTA FLORES MD
--- NOTE | 2020-06-13 20:23 | ED.VIS.STROK ---
History of Present Illness Chief Complaint: Numb/Ting Informant: Patient Narrative: Male presenting with left forearm and wrist paresthesia. This started at about 1700 while patient was eating chicken wings at [employer]. He states that his arm was up on the table that he does not believe he was leaning on it when he felt a numbness occur. He states after putting his arm down it did improve somewhat but was persisted until he got home and it started to get worse. He states at that time he had some palpitations while it was radiating into his arm. Patient states that he is prediabetic and does not have any cardiac history. No history of stroke or TIA although he has had symptoms of paresthesia in his left arm previously. Patient also complains of heartburn from eating chicken wings. Patient denies any difficulty moving his extremities. He denies facial droop, slurred speech, dizziness, lightheadedness. Prior similar symptoms: Yes Recent Illness/Hospitalization: No Past Medical History - Allergies and Home Meds Allergies/Adverse Reactions: Allergies No Known Allergies Allergy (Verified 06/13/20 19:53) Primary Care Physician: Darling Ayers MD [STAFF PHYSICIAN] - Care Physician,No Primary [Primary Care Provider] - Prior records reviewed: Yes Past Medical History: - Surgical History: noncontributory, - - Reviewed Lives: Alone Smoking Status: Never smoker - Chews tobacco Alcohol: Occasional Drugs: None Review of Systems General: Denies: Chills, Fever, Sweats Eyes: Denies: Visual changes - bilaterally, Diplopia ENT: Denies: Rhinorrhea, Sore throat Cardiovascular: Reports: Palpitations, Heart racing. Denies: Chest pain Respiratory: Denies: Dyspnea, Cough Gastrointestinal: Denies: Abdominal pain, Nausea, Vomiting Musculoskeletal: Reports: Extremity Pain - Left forearm and wrist Skin: Denies: Rash, Abscess Neurological: Reports: Parasthesia - Left forearm and wrist, Numbness - Left forearm and wrist. Denies: Headache Psych: Denies: Depression, Anxiety STROKE Vital Signs/Narrative: Vital Signs Temp Pulse Resp BP Pulse Ox 06/13/20 19:48 98.4 F 117 H 15 166/105 H 98 Inital Vital Signs reviewed: Yes General: Well nourished Head: Normocephalic, Atraumatic Eyes: Perrl, EOMI ENT: Moist mucous membranes, No rhinorrhea Cardiovascular: Regular rate, Regular rhythm Respiratory: No distress, CTA bilaterally Abdomen: Soft, Nontender Extremities: Nontender, No edema Skin: Normal color, No rash. Negative for: Cyanosis, Diaphoresis Neurological: Alert, Oriented x3, Cranial nerves II-XII grossly intact, - - NIH equal to 0 Psychological: Normal affect, Normal Mood Diagnostic/Tx/Re-eval Clinical Impression(s) from Imaging Studies Brain CT 06/13/20 20:15 IMPRESSION: No acute intracranial abnormality. Electronically Signed: Jhonatan Oleary MD at 20:59 EST Tel , Service support , Chest X-Ray 06/13/20 20:36 IMPRESSION: No acute thoracic pathology. Electronically Signed: Jhonatan Oleary MD at 20:51 EST Tel , Service support , Laboratory Data 06/13/20 06/13/20 06/13/20 20:25 20:25 20:25 WBC 7.9 RBC 4.47 L Hgb 14.9 Hct 42.2 MCV 94.4 H MCH 33.3 H MCHC 35.3 RDW Std Deviation 43.4 RDW Coeff of Jett 12.4 Plt Count 228 MPV 8.8 Immature Gran % (Auto) 0.500 Neut % (Auto) 86.4 H Lymph % (Auto) 6.6 L Porter % (Auto) 5.8 Eos % (Auto) 0.4 Baso % (Auto) 0.3 Absolute Neuts (auto) 6.9 Absolute Lymphs (auto) 0.52 L Nucleated RBC % 0 Differential Comment SCANNED PT Cancelled INR Cancelled APTT Cancelled Sodium 139 Potassium 3.9 Chloride 106 Carbon Dioxide 26.0 Anion Gap 7 BUN 19 H Creatinine 1.07 Estim Creat Clear Calc 67.95 Est GFR (MDRD) Af Amer 95 Est GFR (MDRD) Non-Af 78 BUN/Creatinine Ratio 17.8 Glucose 125 H Calcium 8.5 Troponin I < 0.015 Ethyl Alcohol POC Glucose 06/13/20 06/13/20 06/13/20 20:25 20:48 21:00 WBC RBC Hgb Hct MCV MCH MCHC RDW Std Deviation RDW Coeff of Jett Plt Count MPV Immature Gran % (Auto) Neut % (Auto) Lymph % (Auto) Porter % (Auto) Eos % (Auto) Baso % (Auto) Absolute Neuts (auto) Absolute Lymphs (auto) Nucleated RBC % Differential Comment PT 12.7 INR 1.0 APTT 25.0 Sodium Potassium Chloride Carbon Dioxide Anion Gap BUN Creatinine Estim Creat Clear Calc Est GFR (MDRD) Af Amer Est GFR (MDRD) Non-Af BUN/Creatinine Ratio Glucose Calcium Troponin I Ethyl Alcohol < 3.0 POC Glucose 122 H - Rhythm Strip Rhythm Strip: Sinus Rhythm Rate: 79 - EKG Initial EKG Interpretation: Sinus Rhythm, No Acute Injury Pattern - Medical Decision Making Stroke Team Activated: No Reviewed Inclusion/Exclusion criteria: No Was Patient considered for Endovascular Intervention?: No IV Alteplase (t-PA) Administered: No No contraindications for IV Alteplase (t-PA) administration.: No Alteplase (t-PA) risks, benefits, alternative discussed: No Not given: Patient refusal: No 49-year-old male presenting with paresthesias to the right wrist and forearm. Apparently has had this several times in the past. He is never made follow-up with the PCP. ABCD 2 score is 2. NIH is 0. EKG performed on arrival shows a normal sinus rhythm at 98 bpm without signs of ischemic change as interpreted by myself. Chest x-ray shows no acute pulmonary process as interpreted by myself agree with by radiology. Lab work is unremarkable. After examining the patient initially he had a normal neurologic exam and told me he could feel sensation symmetrically on both sides of his wrists and forearms and then immediately stated that his left wrist and forearm is still numb. This is a mixed examination. This appears to be consistent with previous episodes of this. Patient was having some palpitations but his troponin is negative and his EKG is normal. He is not complaining of any chest pain or shortness of breath. Given that he is low risk for cardiac issues as well as low risk on ABCD 2 score patient I feel can be discharged home safely. He is counseled to make follow-up with his primary care provider on an outpatient basis to give return precautions. Patient stable for discharge at this time. Impression: 1. Left forearm and wrist paresthesias 2. Palpitations ED Disposition - Plan for ED Patient: Disposition: Home or Assisted Living Instructions: ED Palpitations, ED Paraesthesias Referrals: Care Physician,No Primary [Primary Care Provider] - Darling Ayers MD [STAFF PHYSICIAN] -
--- NOTE | 2020-06-13 20:36 | RAD_ITS ---
STUDY: X-RAY CHEST REASON FOR EXAM: Male, 49 years old. Left arm numbness TECHNIQUE: Frontal view of the chest COMPARISON: 04/26/20 FINDINGS: The lungs are clear. There are no pleural effusions. There is no pneumothorax. The heart is normal in size. The visualized osseous structures are within normal limits. RAD/Chest 1 View IMPRESSION: No acute thoracic pathology. Electronically Signed: Jhonatan Oleary MD at 20:51 EST Tel , Service support ,
[2020-06-13 20:39] LABS: Absolute Lymphocyte Count 0.52 X10^3/uL (0.83-4.51); Absolute Neutrophil Count 6.9 X10^3/uL (2.0-7.7); Basophil# 0.02 X10^3/uL; Basophil% 0.3 % (0-1); Eosinophil# 0.03 X10^3/uL; Eosinophils% 0.4 % (0-5); Hematocrit 42.2 % (40-54); Hemoglobin 14.9 g/dL (13.0-16.5); Lymphocyte # 0.52 X10^3/ul (4.0); Lymphocyte % 6.6 % (19-41); Mean Corp Hgb Conc 35.3 g/dL (32-36); Mean Corpuscular Hgb 33.3 pg (27.0-32.0); Mean Corpuscular Volume 94.4 fL (80-94); Mean Platelet Vol. 8.8 fl (6.2-12.0); Monocyte# 0.46 X10^3/uL; Monocyte% 5.8 % (0-10); NRBC Flagged by Analyzer 0 % (0-5); Neutrophil # 6.85 X10^3/uL (2.7-7.7); Neutrophil % 86.4 % (47-70); POSITIVE DIFFERENTIAL YES; Platelet Count 228 K/mm3 (150-450); RBC Distribution Width CV 12.4 % (11.6-14.6); RBC Distribution Width SD 43.4 fl (35.1-43.9); Red Blood Count 4.47 M/mm3 (4.6-6.2); White Blood Count 7.9 K/mm3 (4.4-11.0)
[2020-06-13 20:45] VITALS: BP 143/80; PULSE 95; RESP 15
[2020-06-13 20:48] LABS: Differential Indicated SCAN CRITERIA MET
[2020-06-13 20:56] LABS: Bedside Glucose 122 mg/dL (70-110)
[2020-06-13 20:58] LABS: Anion Gap 7 (5-15); BUN 19 mg/dL (7-18); BUN/Creat Ratio 17.8 RATIO (10-20); Calcium,Total 8.5 mg/dL (8.5-10.1); Chloride 106 mmol/L (98-107); Creatinine, Serum 1.07 mg/dL (0.70-1.30); EST Glomerular Filtration Rate 78 mL/min (>60); Est Glom Filt Rate - Afr Amer 95 mL/min (>60); Estimated Creatinine Clearance 67.95 ml/min; Glucose 125 mg/dL (74-106); Potassium 3.9 mmol/L (3.5-5.1); Sodium Level 139 mmol/L (136-145)
[2020-06-13 21:01] LABS: Alcohol, Blood (Medical)-Serum < 3.0 mg/dL
[2020-06-13 21:10] LABS: Differential Comment SCANNED
[2020-06-13 21:15] VITALS: BP 137/88; PULSE 107; RESP 17; O2SAT 95
[2020-06-13 21:22] LABS: Prothrombin Time (Protime)PT. 12.7 SECONDS (11.7-14.9)
[2020-06-13 21:30] VITALS: BP 146/93; PULSE 103; RESP 16; O2SAT 98
[2020-06-13 22:03] VITALS: BP 141/89; PULSE 104; RESP 20; O2SAT 97
== END 2020-06-13 22:18 | disposition home or self-care (01) ==
PROVIDERS: Emergency Provider Student in an Organized Health Care Education/Training Program
DX: R20.2 Paresthesia of skin (principal); R00.2 Palpitations; F17.220 Nicotine dependence, chewing tobacco, uncomplicated
CPT/HCPCS: 70450; 71045; 80048; 82077; 82962; 84484; 85025; 85610; 85730; 93005; 96360; 99284; J7040

== ENCOUNTER 2020-06-15 01:00 | Emergency (ER) | payer OTHER, SELFPAY ==
[2020-06-15 01:01] VITALS: BP 166/88; PULSE 107; RESP 18; TEMP 36.1; O2SAT 96; BMI 23.6
[2020-06-15 01:04] VITALS: BP 166/88; PULSE 107; RESP 18; TEMP 36.1; O2SAT 96
--- NOTE | 2020-06-15 01:18 | ED.VIS.GEN ---
History of Present Illness Chief Complaint: General Illness Informant: Patient Narrative: 49-year-old male presenting with nasal congestion, rhinorrhea, nausea and diarrhea. He states this started earlier in the evening yesterday. Patient has not tried any ogev-chu-ezjrxxm medications. He denies fever, chills, body aches, change in taste and smell. He has no known sick contacts that he knows of. Patient does state that he felt lightheaded earlier. Patient seen in the ER 2 days ago for paresthesia in the left arm and had normal lab work at that time. Patient did not make follow-up with a primary care provider for him. Past Medical History - Allergies and Home Meds Allergies/Adverse Reactions: Allergies No Known Allergies Allergy (Verified 06/15/20 01:06) Primary Care Physician: Care Physician,No Primary [Primary Care Provider] - Prior records reviewed: Yes Past Medical History: - - Prediabetic Surgical History: noncontributory, - - Reviewed Smoking Status: Current every day smoker Review of Systems General: Denies: Chills, Fever, Sweats Eyes: Denies: Visual changes - bilaterally, Diplopia ENT: Reports: Rhinorrhea, - - Nasal congestion. Denies: Sore throat Cardiovascular: Denies: Chest pain, Palpitations Respiratory: Denies: Dyspnea, Cough, Dyspnea on exertion Gastrointestinal: Reports: Nausea, Diarrhea. Denies: Abdominal pain, Vomiting, Constipation Genitourinary: Denies: Dysuria, Hematuria, Frequency Musculoskeletal: Denies: Back pain, Extremity Pain Skin: Denies: Rash, Wounds Neurological: Denies: Headache, Weakness, Numbness Psych: Denies: Depression, Anxiety Physical Exam Vital Signs/Narrative: Vital Signs Temp Pulse Resp BP Pulse Ox 06/15/20 01:04 96.9 F L 107 H 18 166/88 H 96 06/15/20 01:01 96.9 F L 107 H 18 166/88 H 96 Inital Vital Signs reviewed: Yes General: Well nourished, No Acute Distress Head: Normocephalic, Atraumatic Eyes: Perrl, EOMI ENT: Moist mucous membranes, No rhinorrhea Cardiovascular: Regular rate, Regular rhythm Respiratory: No distress, CTA bilaterally Extremities: Nontender, No edema Skin: Normal color, No rash. Negative for: Cyanosis, Diaphoresis Neurological: Alert, Oriented x3, Cranial nerves II-XII grossly intact Psychological: Normal affect, Normal Mood Diagnostic/Tx/Re-eval - Medical Decision Making Patient seen and evaluated for lightheadedness and nasal congestion. Patient denies cough, fever, myalgias, change in taste and smell. Patient's vital signs are stable he is afebrile. He is nontoxic-appearing. His physical exam is unremarkable. Patient did have orthostatic vital signs which are normal. I reviewed his lab work from 2 days ago and it was all within normal limits. Patient was noted to have lymphopenia. He will be tested for Covid?19. He will quarantine at home. He is given Zofran for his nausea. Counseled to drink plenty of fluids until his diarrhea resolves. Patient stable discharge at this time. Impression 1. Viral syndrome ED Disposition - Plan for ED Patient: Disposition: Home or Assisted Living Instructions: Coronavirus Disease 2019 (COVID-19): Overview, Coronavirus Disease 2019 (COVID-19): Caring for Yourself or Others, Preventing the Spread of Infection Understanding Isolation Procedures, ED Viral Syndrome (Adult) Prescriptions: Ondansetron [Zofran Odt] 4 mg PO Q8H PRN PRN #14 tab PRN Reason: Nausea Transmission Status: Pending to [facility] Referrals: Care Physician,No Primary [Primary Care Provider] -
[2020-06-15] MEDS: Ondansetron ODT 4 MG Tablet PO (01:24)
[2020-06-15 01:26] VITALS: BP 136/87; BP 137/86; BP 145/82; PULSE 88; PULSE 91; PULSE 94
[2020-06-15 01:55] VITALS: PULSE 92; O2SAT 98
== END 2020-06-15 01:56 | disposition home or self-care (01) ==
LOC: ED 01:49
PROVIDERS: Emergency Provider Student in an Organized Health Care Education/Training Program
DX: B34.9 Viral infection, unspecified (principal); F17.200 Nicotine dependence, unspecified, uncomplicated
CPT/HCPCS: 87635; 99283; U0005; U0003

== ENCOUNTER 2020-08-28 11:57 | Emergency (ER) | payer OTHER, SELFPAY ==
[2020-08-28 11:58] VITALS: BP 136/86; PULSE 114; RESP 16; TEMP 36.8; O2SAT 99; BMI 22.8
--- NOTE | 2020-08-28 12:22 | ED.DCSUM_ITS ---
History of Present Illness Chief Complaint: Rash Informant: Patient Narrative: Patient is a 50-year-old male who presents to the emergency department for diffuse body rash. His initial symptoms started 1 week ago. He was staying at a motel whenever he got under the covers. Soon as he got under the covers he started to itch profusely. Whenever he went outside this made his symptoms better. Over the course of the week his symptoms have been constant. He has not been taking anything for this. He is never had this happen before. 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 He denies any oral lesions. No rash on his hands or feet. The majority of his symptoms are on his upper extremities but do extend to his abdomen, back and lower extremities. It is occasionally itchy. No bleeding or discharge from any site. No sloughing of skin. He denies any fevers or chills. No nausea or vomiting. Denies any chest pain or shortness of breath. He denies any urinary symptoms. He has not had any joint pain or swelling. Past Medical History - Allergies and Home Meds Allergies/Adverse Reactions: Allergies No Known Allergies Allergy (Verified 08/28/20 11:58) Primary Care Physician: Bari Campo III, MD [STAFF PHYSICIAN] - 3-5 Days if not improving Care Physician,No Primary [Primary Care Provider] - Prior records reviewed: Yes Surgical History: noncontributory, - - Reviewed Smoking Status: Never smoker Review of Systems All systems negative except as indicated General: Denies: Chills, Fever, Sweats Eyes: Denies: Visual changes - bilaterally, Diplopia ENT: Denies: Rhinorrhea, Sore throat Cardiovascular: Denies: Chest pain, Palpitations Respiratory: Denies: Dyspnea, Cough, Dyspnea on exertion Gastrointestinal: Denies: Abdominal pain, Nausea, Vomiting, Diarrhea Genitourinary: Denies: Dysuria, Hematuria, Frequency Musculoskeletal: Denies: Back pain, Extremity Pain Skin: Reports: Rash. Denies: Abscess, Wounds Neurological: Denies: Headache, Weakness, Numbness Physical Exam Vital Signs/Narrative: Vital Signs Temp Pulse Resp BP Pulse Ox 08/28/20 11:58 98.2 F 114 H 16 136/86 H 99 Inital Vital Signs reviewed: Yes General: Well nourished, Well developed, No Acute Distress Head: Normocephalic, Atraumatic Eyes: Perrl, EOMI ENT: Moist mucous membranes, No rhinorrhea Neck: Supple, Nontender Cardiovascular: Regular rate, Regular rhythm, No murmurs Respiratory: No distress, CTA bilaterally, Chest nontender Abdomen: Soft, Nontender, Nondistended, Normal bowel sounds Back: Nontender, Normal Inspection Extremities: Nontender, No edema Skin: No rash, Rash - Erythematous, macular that does extend to papular regions mostly over the upper extremities bilaterally extending to the abdomen and chest. There is some on the posterior neck and a distribution along the collar of a shirt., - - No lesions on the palms of hands or soles of feet. No mucosal membrane involvement. No sloughing of skin. Neurological: Alert, Oriented x3, Cranial nerves II-XII grossly intact, Normal Strength, Normal Sensation Psychological: Normal affect, Normal Mood Diagnostic/Tx/Re-eval - Medical Decision Making Patient presents to the ED for diffuse body rash. Upon arrival to the emerge department he was mildly tachycardic but on my exam his heart returned to normal. He is nontoxic and csr-ndp-jfnlghskp. He is afebrile. He does have diffuse macular/papular erythematous rash. He has some new exposures. I believe that this is most likely a contact dermatitis. He does not take anything for this. Will place on a course of prednisone. He can take Benadryl [id number] as needed for itching. He does not have a PCP so he was given a referral for 1 for which she needs to have close follow-up. If he develops any worsening symptoms, systemic symptoms he needs to return to the emergency department immediately. He understands and is agreeable this plan. Discharged home in stable condition. All questions answered. ED Disposition - Plan for ED Patient: Disposition: Home or Assisted Living Diagnosis: Dermatitis Instructions: ED Contact Dermatitis Prescriptions: Prednisone [Deltasone] 40 mg PO DAILY #10 tablet Transmission Status: Received by [facility] Referrals: Care Physician,No Primary [Primary Care Provider] - Bari Campo III, MD [STAFF PHYSICIAN] - 3-5 Days if not improving
[2020-08-28 12:46] VITALS: RESP 18
== END 2020-08-28 12:46 | disposition home or self-care (01) ==
PROVIDERS: Emergency Provider Emergency Medicine
DX: L30.9 Dermatitis, unspecified (principal)
CPT/HCPCS: 99282

== ENCOUNTER 2020-09-07 11:47 | Emergency (ER) | payer OTHER, SELFPAY ==
[2020-09-07 11:49] VITALS: BP 137/84; PULSE 109; RESP 16; TEMP 36.6; O2SAT 96; BMI 22.4
[2020-09-07 12:59] VITALS: BP 125/77; PULSE 77; RESP 14; O2SAT 97
[2020-09-07] MEDS: 0.9% Normal Saline 1,000 ML 1000 ML IV (13:12)
[2020-09-07] MEDS: Ondansetron 4 MG/2 ML Vial IV (13:13)
[2020-09-07 13:23] LABS: Absolute Neutrophil Count 3.1 X10^3/uL (2.0-7.7); Basophil# 0.02 X10^3/uL; Basophil% 0.5 % (0-1); Eosinophil# 0.13 X10^3/uL; Hematocrit 48.3 % (40-54); Hemoglobin 16.6 g/dL (13.0-16.5); Lymphocyte % 18.3 % (19-41); Mean Corp Hgb Conc 34.4 g/dL (32-36); Mean Corpuscular Hgb 33.4 pg (27.0-32.0); Mean Corpuscular Volume 97.2 fL (80-94); Mean Platelet Vol. 8.5 fl (6.2-12.0); Monocyte# 0.36 X10^3/uL; Monocyte% 8.2 % (0-10); NRBC Flagged by Analyzer 0 % (0-5); Neutrophil # 3.05 X10^3/uL (2.7-7.7); Neutrophil % 69.8 % (47-70); Platelet Count 206 K/mm3 (150-450); RBC Distribution Width CV 12.3 % (11.6-14.6); RBC Distribution Width SD 44.2 fl (35.1-43.9); Red Blood Count 4.97 M/mm3 (4.6-6.2); White Blood Count 4.4 K/mm3 (4.4-11.0)
[2020-09-07 13:36] LABS: AST(SGOT) 20 U/L (15-37); Alanine Aminotransfer ALT/SGPT 23 U/L (16-61); Albumin, Serum 3.7 g/dL (3.2-5.0); Alkaline Phosphatase 65 U/L (45-117); Anion Gap 7 (5-15); BUN 7 mg/dL (7-18); BUN/Creat Ratio 8.2 RATIO (10-20); Calcium,Total 8.7 mg/dL (8.5-10.1); Chloride 106 mmol/L (98-107); Creatinine, Serum 0.85 mg/dL (0.70-1.30); EST Glomerular Filtration Rate 101 mL/min (>60); Est Glom Filt Rate - Afr Amer 123 mL/min (>60); Estimated Creatinine Clearance 84.61 ml/min; Globulin 3.8 g/dL (2.2-4.2); Glucose 84 mg/dL (74-106); Lipase 168 U/L (73-393); Potassium 4.1 mmol/L (3.5-5.1); Protein, Total 7.5 g/dL (6.4-8.2); Sodium Level 141 mmol/L (136-145)
--- NOTE | 2020-09-07 13:40 | ED.VISSUMM ---
- ER Visit Summary Date of Service: 09/07/20 Chief Complaint: Nausea History of Present Illness: The patient is a 50 M with nausea for 3 days. Symptoms are intermittent. Nothing seems to bring them on. Associated with some lightheadedness. Also reports body aches. No vomiting. No diarrhea. No bleeding. No abdominal pain. No cough or respiratory symptoms. No other associated symptoms. Physical Examination: Afebrile and vital signs unremarkable except for heart rate of 109. Patient is alert and oriented. No acute distress. Heart regular. Lungs clear. Abdomen is soft and nontender. No guarding or rebound. Skin appears normal. Test Results and ED Care: Basic blood work was unremarkable. Patient was treated with fluids and Zofran and his symptoms resolved. He had a negative COVID-19 test recently. I cannot identify any indication for further emergency testing, consultation, admission, transfer, or any further emergency care. We will treat his symptoms with Zofran. Stay hydrated. Follow-up with primary care. Return for any new or worsening issues. Treatment Plan: As above Disposition: Discharge Impression: Nausea This note was generated with [employer] dictation software. It may contain incorrect words, spelling, and punctuation that were not noted in review of the chart prior to signing ED Disposition - Plan for ED Patient: Referrals: Care Physician,No Primary [Primary Care Provider] -
--- NOTE | 2020-09-07 13:43 | ED.DEP ---
ED Disposition - Plan for ED Patient: Instructions: ED Vomiting (Adult) Prescriptions: Ondansetron [Zofran Odt] 4 mg PO Q8H PRN PRN #10 tablet PRN Reason: Nausea Prescription Printed Referrals: Camryn High [NON-STAFF] -
[2020-09-07 13:51] VITALS: BP 129/85; PULSE 67; RESP 15; O2SAT 97
== END 2020-09-07 13:52 | disposition home or self-care (01) ==
LOC: ED 13:05
PROVIDERS: Emergency Provider Emergency Medicine
DX: R11.0 Nausea (principal); J45.909 Unspecified asthma, uncomplicated
CPT/HCPCS: 80053; 83690; 85025; 96361; 96374; 99283; J7030; J2405

== ENCOUNTER 2020-09-16 14:27 | Emergency (ER) | payer OTHER, SELFPAY ==
[2020-09-16 14:28] VITALS: BP 172/89; PULSE 119; RESP 18; TEMP 36.6; O2SAT 98; BMI 22.6
--- NOTE | 2020-09-16 14:44 | ED.DCSUM_ITS ---
- ER Visit Summary Date of Service: 09/16/20 Chief Complaint: Feels sick. Subjective fever. Left work today. History of Present Illness: The patient is a 50 M history of reflux, prior kidney stone seizure disorder. Patient states that he just wasn't feeling well today. Had a subjective fever last work. Denies headache, chest pain, shortness of breath or cough. No abdominal pain. Denies nausea, vomiting or diarrhea. No dysuria. No rash. Physical Examination: Well-appearing middle-aged male. Vital signs stable afebrile. Doesn't look septic or toxic. HEENT exam unremarked. Neck nontender no lymphadenopathy. No meningismus. Full range of motion. Lungs clear to auscultation bilaterally. Heart regular rhythm no murmur. Rate about 100. Chest were nontender. Abdomen soft nontender normal bowel sounds no peritoneal signs. Patient moving all 4 extremities. Neurovascular intact. Nontender no edema. No cellulitis. He does have areas on his forearm and upper arm where he is picked up the skin. They're not infected. Neurologically is awake and alert. No focal motor or sensory deficits. 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 Dorsi and plantar flexion intact. No drift to either leg. Fingertip to nose within normal limits. Normal speech. No facial droop. NIH is 0. Test Results: None Emergency Department Course and Treatment: The patient looks well. He has had multiple ER visits and multiple work-ups including multiple CAT scans of his head in the last 1 to 2 years. He has a benign appearing exam. I don't feel that he needs further evaluation at this time with a benign exam. Treatment Plan: Discharged home. Work excuse. Follow-up as needed. Return if worse. Disposition: Discharge Impression: Viral syndrome History of seizure disorder This note was generated with [employer] dictation software. It may contain incorrect words, spelling, and punctuation that were not noted in review of the chart prior to signing ED Disposition - Plan for ED Patient: Referrals: Care Physician,No Primary [Primary Care Provider] -
--- NOTE | 2020-09-16 14:47 | ED.DEP ---
ED Disposition - Plan for ED Patient: Disposition: Home or Assisted Living Instructions: ED Viral Syndrome (Adult) Referrals: Remy Weiner MD [STAFF PHYSICIAN] - 1 Week if not improving Additional Instructions: Off work today. Plenty of fluids and rest. Tylenol and/or Motrin as needed. Follow-up if not improving or return if worse.
== END 2020-09-16 14:54 | disposition home or self-care (01) ==
PROVIDERS: Emergency Provider Emergency Medicine
DX: B34.9 Viral infection, unspecified (principal); G40.909 Epilepsy, unspecified, not intractable, without status epilepticus
CPT/HCPCS: 99282

== ENCOUNTER 2020-10-11 12:45 | Inpatient (IN) | payer OTHER, SELFPAY ==
[2020-10-11 12:47] VITALS: BP 113/74; PULSE 80; RESP 14; TEMP 36.2; O2SAT 97; BMI 10.3
--- NOTE | 2020-10-11 13:25 | CM.ED ---
SOCIAL WORK Referral Source: Self-referral Reason for Consult: Substance Abuse-requesting detox from alcohol Met with patient and friend in room. Introduced role and reason for referral. Patient reports drinks about 7 tall boys a day. Patient reports family history of alcoholism. Friend states patient drinks every day before work and as soon as patient returns home from work. Friend reports she and patient met with [facility] today and patient was advised to come to hospital for detox. Friend states patient has appointment with [facility] scheduled with a counselor for Sunday10/15/20. Informed SW from [facility] will be in to talk with patient tomorrow and complete assessment. Patient verbalized understanding. Discussed agreement that nurse will go over with patient and informed of rules of [facility]. Patient verbalized understanding and reports I want help. Emotional support and encouragement provided. Dr. Robins to room at this time. Plan: Admit to [facility], will update [facility] Treatment Navigator upon admission. Luis Gomez, VETERANS CONTACT REPRESENTATIVE, ENTERPRISE CLOUD ARCHITECT
[2020-10-11 13:43] LABS: Absolute Lymphocyte Count 1.08 X10^3/uL (0.83-4.51); Absolute Neutrophil Count 4.9 X10^3/uL (2.0-7.7); Basophil# 0.02 X10^3/uL; Basophil% 0.3 % (0-1); Eosinophil# 0.33 X10^3/uL; Eosinophils% 4.7 % (0-5); Hematocrit 47.3 % (40-54); Lymphocyte # 1.08 X10^3/ul (0.83-4.51); Lymphocyte % 15.5 % (19-41); Mean Corp Hgb Conc 33.8 g/dL (32-36); Mean Corpuscular Hgb 33.5 pg (27.0-32.0); Mean Platelet Vol. 8.7 fl (6.2-12.0); Monocyte% 8.6 % (0-10); NRBC Flagged by Analyzer 0 % (0-5); Neutrophil # 4.93 X10^3/uL (2.7-7.7); Neutrophil % 70.5 % (47-70); Platelet Count 189 K/mm3 (150-450); RBC Distribution Width CV 12.5 % (11.6-14.6); RBC Distribution Width SD 45.9 fl (35.1-43.9); Red Blood Count 4.78 M/mm3 (4.6-6.2)
--- NOTE | 2020-10-11 13:54 | EX.ED.DYSGE1 ---
HPI History of Present Illness Chief Complaint: Substance Abuse Narrative Narrative: Patient is a 50-year-old male who presents to the emergency department to withdrawal from alcohol. He states that he has been drinking heavily since the age of 22. He typically drinks around 7 beers per day. He did drink this this morning. He has gone through withdrawals before in the past. He does have a history of seizure disorder but has never had seizures when going through withdrawal. At this time patient has no complaints. He denies any other substance abuse. He does chew tobacco. He has a former smoking history. He has been in contact with the [facility] program. [facility] Medical History (Updated 10/11/20 @ 16:[address] Marcial Robins DO) Alcohol abuse Asthma Chewing tobacco use Former smoker GERD (gastroesophageal reflux disease) Seizures Vision loss of left eye Home Medications NK 10/11/20 [History Last Taken Unknown] Allergy/AdvReac Type Severity Reaction Status Date / Time No Known Allergies Allergy Verified 10/11/20 12:46 Surgical History (Updated 10/11/20 @ 14:16 by Trevor Marx) History of hernia repair Social History Smoking Status: Former smoker ROS ROS ED Constitutional Constitutional ED: Denies chills or fever(s) Eyes Eyes: Denies change in vision ENT ENT ED: Denies epistaxis or rhinorrhea Cardiovascular Cardiovascular: Denies chest pain or palpitations Respiratory/Chest Respiratory/Chest: Denies cough, dyspnea or dyspnea on exertion Gastrointestinal Gastrointestinal: Denies abdominal pain, diarrhea, nausea or vomiting Genitourinary Genitourinary ED: Denies dysuria, hematuria or urinary frequency Musculoskeletal Musculoskeletal: Denies back pain or neck pain Integumentary Denies rash Neurologic Neurologic: Denies dizziness, headache(s) or weakness EXAM Physical Exam Const Vital Signs: 10/11/20 12:47 10/11/20 15:44 Temperature 97.2 F L 98.0 F Temperature Source Temporal Temporal Pulse Rate 80 71 Respiratory Rate 14 16 Blood Pressure 113/74 125/85 H Blood Pressure Mean 87 98 Pulse Ox 97 98 Oxygen Delivery Method Room Air Room Air Positive well nourished and well developed General Appearance ED: well developed and NAD HEENT Reports normocephalic, head/scalp atraumatic and moist mucous membranes Eyes PERRL and EOMs intact bilaterally Neck no lymphadenopathy and supple General: Negative for tenderness Chest Wall inspection of chest normal Resp normal respiratory effort and clear to auscultation bilaterally Auscultation: Negative for rales, rhonchi or wheezes Cardio regular rate, regular rhythm and no murmurs GI normal to inspection, nondistended, normoactive bowel sounds and non-tender Palpation: soft; Negative for guarding or rebound tenderness present Extremity normal to inspection General Extremety ED: Negative for edema or tenderness General Extremity: Negative for edema Neuro oriented x3, CN's II-XII intact bilaterally and no sensory deficits noted Sensorium / Orientation: alert Motor Exam: strength 5/5 throughout Psych mental status grossly normal Skin no rashes or lesions noted MDM MDM MDM Narrative Medical decision making narrative: Patient presents to the ED to withdrawal from alcohol. He did drink this morning. Upon arrival to the ED vital signs within normal limits. He has no complaints otherwise. Basic lab work being performed. Patient's alcohol level was 100. The rest of his lab work did not reveal any significant acute abnormality. Urine tox screen was negative. At this time will bring into the hospital for alcohol detoxification. He otherwise has been stable throughout ED stay. He is still agreeable with this plan. Lab Data Labs: Laboratory Results - last 24 hr 10/11/20 10/11/20 10/11/20 13:34 13:34 13:34 WBC 7.0 RBC 4.78 Hgb 16.0 Hct 47.3 MCV 99.0 H MCH 33.5 H MCHC 33.8 RDW Std Deviation 45.9 H RDW Coeff of Jett 12.5 Plt Count 189 MPV 8.7 Immature Gran % (Auto) 0.400 Neut % (Auto) 70.5 H Lymph % (Auto) 15.5 L [place] % (Auto) 8.6 Eos % (Auto) 4.7 Baso % (Auto) 0.3 Absolute Neuts (auto) 4.9 Absolute Lymphs (auto) 1.08 Nucleated RBC % 0 Sodium 139 Potassium 3.5 Chloride 108 H Carbon Dioxide 24.0 Anion Gap 7 BUN 10 Creatinine 0.76 Estim Creat Clear Calc 43.98 Est GFR (MDRD) Af Amer 141 Est GFR (MDRD) Non-Af 117 BUN/Creatinine Ratio 13.2 Glucose 79 Calcium 8.8 Total Bilirubin 0.50 AST 14 L ALT 19 Alkaline Phosphatase 55 Troponin I < 0.015 Total Protein 7.3 Albumin 3.4 Globulin 3.9 Albumin/Globulin Ratio 0.9 Urine Opiates Screen Urine Methadone Screen Ur Barbiturates Screen Ur Phencyclidine Scrn Ur Amphetamines Screen U Methamphetamin-MDMA U Benzodiazepines Scrn Urine Cocaine Screen U Cannabinoids Screen Ur Drug Screen Comment Ethyl Alcohol 100.0 10/11/20 14:26 WBC RBC Hgb Hct MCV MCH MCHC RDW Std Deviation RDW Coeff of Jett Plt Count MPV Immature Gran % (Auto) Neut % (Auto) Lymph % (Auto) [place] % (Auto) Eos % (Auto) Baso % (Auto) Absolute Neuts (auto) Absolute Lymphs (auto) Nucleated RBC % Sodium Potassium Chloride Carbon Dioxide Anion Gap BUN Creatinine Estim Creat Clear Calc Est GFR (MDRD) Af Amer Est GFR (MDRD) Non-Af BUN/Creatinine Ratio Glucose Calcium Total Bilirubin AST ALT Alkaline Phosphatase Troponin I Total Protein Albumin Globulin Albumin/Globulin Ratio Urine Opiates Screen NEGATIVE Urine Methadone Screen NEGATIVE Ur Barbiturates Screen NEGATIVE Ur Phencyclidine Scrn NEGATIVE Ur Amphetamines Screen NEGATIVE U Methamphetamin-MDMA NEGATIVE U Benzodiazepines Scrn NEGATIVE Urine Cocaine Screen NEGATIVE U Cannabinoids Screen NEGATIVE Ur Drug Screen Comment Ethyl Alcohol Discharge Plan Triage Chief Complaint: Substance Abuse ED Provider: Marcial Robins Dx/Rx/DC Orders Clinical Impression: Alcohol use disorder Primary Care Provider: Care Physician,No Primary Disposition Disposition: Acute Care Hospital [facility] [place]
[2020-10-11 14:38] LABS: ALB/GLOB Ratio 0.9 RATIO (0.9-2.4); AST(SGOT) 14 U/L (15-37); Alanine Aminotransfer ALT/SGPT 19 U/L (16-61); Albumin, Serum 3.4 g/dL (3.2-5.0); Alkaline Phosphatase 55 U/L (45-117); Anion Gap 7 (5-15); BUN 10 mg/dL (7-18); BUN/Creat Ratio 13.2 RATIO (10-20); Calcium,Total 8.8 mg/dL (8.5-10.1); Chloride 108 mmol/L (98-107); Creatinine, Serum 0.76 mg/dL (0.70-1.30); EST Glomerular Filtration Rate 117 mL/min (>60); Est Glom Filt Rate - Afr Amer 141 mL/min (>60); Estimated Creatinine Clearance 43.98 ml/min; Globulin 3.9 g/dL (2.2-4.2); Glucose 79 mg/dL (74-106); Potassium 3.5 mmol/L (3.5-5.1); Protein, Total 7.3 g/dL (6.4-8.2); Sodium Level 139 mmol/L (136-145)
[2020-10-11 14:52] LABS: Amphetamine Urine VISTA NEGATIVE (<1000 ng/mL); Barbiturate Urine VISTA NEGATIVE (< 200 ng/mL); Benzodiazepine Urine VISTA NEGATIVE (< 200 ng/mL); Cocaine Urine VISTA NEGATIVE (< 300 ng/mL); Ecstacy Urine VISTA NEGATIVE (< 500 ng/mL); Methadone Urine VISTA NEGATIVE (< 300 ng/mL); PCP Urine VISTA NEGATIVE (< 25 ng/mL); THC Urine VISTA NEGATIVE (< 50 ng/mL); Vista UDS pH Range 7
[2020-10-11 15:44] VITALS: BP 125/85; PULSE 71; RESP 16; TEMP 36.7; O2SAT 98
--- NOTE | 2020-10-11 15:55 | HP.PCM.HOS_ITS ---
[facility] - General General Date of Admission: 10/11/20 HPI Narrative MARA DURAND, is a 50 M who presents for acute alcohol withdrawal. Patient has a past medical history of seizure disorder, asthma and S2 esophageal reflux disease as well as alcohol abuse. He came into the ED on 10/11/2020 for acute alcohol withdrawal. States he has been drinking since his teens and drinks around 7 beers daily. He said he has never been in the hospital for detox though he is undergoing withdrawals in the past on outpatient basis. His last drink was this morning prior to admission. He has a history of seizure disorder but states he has not had a seizure in a very long time. He denied any fever, c hills, tremors, nausea or vomiting. Review of symptoms otherwise negative. Vitals in the ED showed blood pressure 125/85, pulse rate of 71 and respiratory rate of 16. He was saturating at 98% on room air. Hemoglobin was 16 and WBC was 7 with platelets of 189. Chemistry was essentially unremarkable. Urine tox was negative and serum alcohol level was 100. He has been admitted to be managed for acute alcohol withdrawal. [facility] Medical History (Updated 10/11/20 @ 16:[address] Marcial Robins DO) Alcohol abuse Asthma Chewing tobacco use Former smoker GERD (gastroesophageal reflux disease) Seizures Vision loss of left eye Home Medications NK 10/11/20 [History Last Taken Unknown] Allergy/AdvReac Type Severity Reaction Status Date / Time No Known Allergies Allergy Verified 10/11/20 12:46 Surgical History (Updated 10/11/20 @ 14:16 by Trevor Marx) History of hernia repair Social History Smoking Status: Former smoker ROS Constitutional Constitutional: Denies chills, fatigue, fever(s), malaise or weakness Eyes Eyes: Denies blurry vision or discharge from eye(s) ENT HEENT: Denies dysphagia or sore throat Cardiovascular Cardiovascular: Denies chest pain, dyspnea on exertion, edema, lightheadedness, orthopnea, palpitations, paroxysmal nocturnal dyspnea or rapid heart rate Respiratory/Chest Respiratory/Chest: Denies cough, hemoptysis, productive cough or shortness of breath at rest Gastrointestinal Gastrointestinal: Denies abdominal pain, constipation, diarrhea, nausea or vomiting Genitourinary Genitourinary: Denies burning urination Musculoskeletal Musculoskeletal: Denies arthralgias or back pain Neurologic Neurologic: Denies abnormal speech, confusion, seizure-like activity or seizures Psychiatric Psychiatric: Denies anxiety or depression Allergic/Immunologic Allergic/Immunologic: Reports asthma Vital Signs Vital Signs Vital Signs: 10/11/20 12:47 10/11/20 15:44 Temperature 97.2 F L 98.0 F Temperature Source Temporal Temporal Pulse Rate 80 71 Respiratory Rate 14 16 Blood Pressure 113/74 125/85 H Blood Pressure Mean 87 98 Pulse Ox 97 98 Oxygen Delivery Method Room Air Room Air Physical Exam Const alert and oriented x3 General Appearance: cooperative HEENT normocephalic, head/scalp atraumatic, hearing grossly normal bilaterally and moist oral mucous membranes Eyes PERRL, EOMs intact bilaterally and conjunctivae normal Neck no lymphadenopathy Resp normal respiratory effort, no retractions, no use of accessory muscles and clear to auscultation bilaterally Cardio regular rate, regular rhythm, S1 normal heart sound, S2 normal heart sound and no murmurs GI normal to inspection, nondistended, normoactive bowel sounds, soft to palpation, non-tender and non-distended Extremity normal to inspection, full ROM and no clubbing, cyanosis or edema Peripheral Pulses: Yes pulses 2+ throughout Skin no rashes or lesions noted Neuro oriented x3 Sensorium / Orientation: awake and alert Psych affect normal Lab / Micro Data Result Diagrams: 10/11/20 13:34 10/11/20 13:34 Labs: Laboratory Results - last 24 hr 10/11/20 10/11/20 10/11/20 13:34 13:34 13:34 WBC 7.0 RBC 4.78 Hgb 16.0 Hct 47.3 MCV 99.0 H MCH 33.5 H MCHC 33.8 RDW Std Deviation 45.9 H RDW Coeff of Jett 12.5 Plt Count 189 MPV 8.7 Immature Gran % (Auto) 0.400 Neut % (Auto) 70.5 H Lymph % (Auto) 15.5 L [place] % (Auto) 8.6 Eos % (Auto) 4.7 Baso % (Auto) 0.3 Absolute Neuts (auto) 4.9 Absolute Lymphs (auto) 1.08 Nucleated RBC % 0 Sodium 139 Potassium 3.5 Chloride 108 H Carbon Dioxide 24.0 Anion Gap 7 BUN 10 Creatinine 0.76 Estim Creat Clear Calc 43.98 Est GFR (MDRD) Af Amer 141 Est GFR (MDRD) Non-Af 117 BUN/Creatinine Ratio 13.2 Glucose 79 Calcium 8.8 Total Bilirubin 0.50 AST 14 L ALT 19 Alkaline Phosphatase 55 Troponin I < 0.015 Total Protein 7.3 Albumin 3.4 Globulin 3.9 Albumin/Globulin Ratio 0.9 Urine Opiates Screen Urine Methadone Screen Ur Barbiturates Screen Ur Phencyclidine Scrn Ur Amphetamines Screen U Methamphetamin-MDMA U Benzodiazepines Scrn Urine Cocaine Screen U Cannabinoids Screen Ur Drug Screen Comment Ethyl Alcohol 100.0 10/11/20 14:26 WBC RBC Hgb Hct MCV MCH MCHC RDW Std Deviation RDW Coeff of Jett Plt Count MPV Immature Gran % (Auto) Neut % (Auto) Lymph % (Auto) [place] % (Auto) Eos % (Auto) Baso % (Auto) Absolute Neuts (auto) Absolute Lymphs (auto) Nucleated RBC % Sodium Potassium Chloride Carbon Dioxide Anion Gap BUN Creatinine Estim Creat Clear Calc Est GFR (MDRD) Af Amer Est GFR (MDRD) Non-Af BUN/Creatinine Ratio Glucose Calcium Total Bilirubin AST ALT Alkaline Phosphatase Troponin I Total Protein Albumin Globulin Albumin/Globulin Ratio Urine Opiates Screen NEGATIVE Urine Methadone Screen NEGATIVE Ur Barbiturates Screen NEGATIVE Ur Phencyclidine Scrn NEGATIVE Ur Amphetamines Screen NEGATIVE U Methamphetamin-MDMA NEGATIVE U Benzodiazepines Scrn NEGATIVE Urine Cocaine Screen NEGATIVE U Cannabinoids Screen NEGATIVE Ur Drug Screen Comment Ethyl Alcohol Assessment & Plan Assessment/Plan (1) Alcohol withdrawal: PLAN: #Acute alcohol withdrawal * admit to Med surg * Start on alcohol withdrawal protocol with phenobarbital * Start CIWA protocol. Monitor CIWA score * Thiamine, folic acid and Multivite. * #Nicotine dependence: Counseled to quit. Nicotine patch 21 mg daily. States he chews tobacco but does not smoke #History of asthma: Not in exacerbation. On breathing treatment with bronchodilators. #History of seizure disorder: States he has not had seizures in a very long time. On phenobarbital which will help with seizures. DVT prophylaxis: Low risk. Encouraged to ambulate Visit Charges Inpatient E&M: 02964 Init Hosp L3
--- NOTE | 2020-10-11 15:59 | CM.ED ---
SOCIAL WORK Call to [facility] Treatment Navigator, Chemo to update on patient's admission. Assessment to be completed tomorrow by [facility]. Luis Gomez, LEARNING SUPPORT AIDE, CASTING AND CURING OPERATOR
[2020-10-11 16:54] VITALS: BMI 21.9
[2020-10-11 17:16] VITALS: BP 123/80; PULSE 70; RESP 20; TEMP 37.6; O2SAT 98
[2020-10-11 17:20] VITALS: PULSE 70
[2020-10-11] MEDS: Phenobarbital 32.4 MG Tablet 64.8 MG PO ×2 (18:28→23:15)
[2020-10-11 23:07] VITALS: BP 126/84; PULSE 60; RESP 15; TEMP 37.2; O2SAT 97
[2020-10-11] MEDS: traZODone 100 MG Tablet PO (23:15)
[2020-10-12 03:35] VITALS: BP 111/71; PULSE 60; RESP 15; TEMP 36.4; O2SAT 96
[2020-10-12] MEDS: Phenobarbital 32.4 MG Tablet 64.8 MG PO ×6 (03:35→22:57)
[2020-10-12 07:17] VITALS: BP 126/72; PULSE 56; RESP 18; TEMP 36.7; O2SAT 99
--- NOTE | 2020-10-12 07:22 | PCM.PN.HOSP ---
Subjective Subjective Patient is a 50-year-old gentleman with history of chronic alcohol abuse admitted with acute alcohol withdrawal Objective Data Objective Data Vital Signs: Vital Signs Temp Pulse Resp BP Pulse Ox 98.0 F 56 L 18 126/72 H 99 10/12/20 07:17 10/12/20 07:17 10/12/20 07:17 10/12/20 07:17 10/12/20 07:17 Oxygen Delivery Method Room Air Weight: 56.245 kg Body Mass Index (BMI) 21.9 Intake & Output: Intake and Output for Last 24 Hours 10/10/20 10/11/20 10/12/20 23:59 23:59 23:59 Intake Total 1220 / 1220 Balance 1220 / 1220 Lab / Micro Data Result Diagrams: 10/11/20 13:34 10/11/20 13:34 Physical Exam Narrative GENERAL: cooperative HEENT: Atraumatic; EYES; Anicteric, Normal Conjunctiva NECK; supple, normal thyroid, RESPIRATORY: Diminished to auscultation CARDIOVASCULAR: Regular S1 S2, GI: soft, normoactive bowel sounds, : No Renal angle tenderness; EXTREMITIES: No edema, no clubbing, MUSCULOSKELETAL: no muscle waisting NEURO: Awake; no lateralizing signs. SKIN: No Rash PSYCH; Flat affect Assessment & Plan Assessment/Plan (1) Alcohol withdrawal: PLAN: Patient is a 50-year-old gentleman with history of chronic alcohol abuse admitted with acute alcohol withdrawal 1. Acute alcohol withdrawal ?Patient has been admitted to regular nursing floor for medical stabilization using phenobarb taper 2. Chronic alcohol abuse ?Patient was counseled on cessation 3. Mild intermittent asthma ?Currently not in exacerbation aerosol treatment as needed 4. Tobacco dependence - Counseled on cessation, offered nicotine patch for tobacco cravings 5. History of seizure disorder -patient not on any antiseizure medications in any case patient is on phenobarb taper 6. DVT prophylaxis - Low risk. Encouraged to ambulate Visit Charges Inpatient E&M: 76861 Subs Hosp L2
[2020-10-12] MEDS: Folic Acid 1 MG Tablet PO (07:29)
[2020-10-12] MEDS: Thiamine Hydrochloride 100 MG Tablet PO (07:29)
--- NOTE | 2020-10-12 09:40 | ADDICTION ---
This copy writer attempted to meet with PT. PT did not respond to 3x verbal queuing. This copy writer will attempt to meet with PT at next visit 10/13/20.
[2020-10-12 10:49] VITALS: BP 108/71; PULSE 74; RESP 18; TEMP 36.9; O2SAT 95
--- NOTE | 2020-10-12 11:05 | NURSING ---
Left message on pt's uncle voicemail to call this nurse. pt requested that his place of employment is notified and said his uncle could call them.
[2020-10-12 15:05] VITALS: BP 109/74; PULSE 66; RESP 18; TEMP 36.6; O2SAT 96
[2020-10-12 18:37] VITALS: BP 117/67; RESP 18; TEMP 36.9
[2020-10-13] MEDS: Phenobarbital 32.4 MG Tablet 64.8 MG PO ×6 (01:54→22:03)
[2020-10-13 05:55] LABS: Absolute Lymphocyte Count 1.04 X10^3/uL (0.83-4.51); Absolute Neutrophil Count 4.6 X10^3/uL (2.0-7.7); Basophil# 0.03 X10^3/uL; Basophil% 0.4 % (0-1); Eosinophil# 0.39 X10^3/uL; Eosinophils% 5.8 % (0-5); Hematocrit 42.7 % (40-54); Hemoglobin 14.5 g/dL (13.0-16.5); Lymphocyte # 1.04 X10^3/ul (0.83-4.51); Lymphocyte % 15.4 % (19-41); Mean Corpuscular Hgb 33.6 pg (27.0-32.0); Mean Corpuscular Volume 98.8 fL (80-94); Mean Platelet Vol. 9.3 fl (6.2-12.0); Monocyte# 0.63 X10^3/uL; Monocyte% 9.3 % (0-10); NRBC Flagged by Analyzer 0 % (0-5); Neutrophil # 4.63 X10^3/uL (2.7-7.7); Neutrophil % 68.8 % (47-70); Platelet Count 183 K/mm3 (150-450); RBC Distribution Width CV 12.1 % (11.6-14.6); RBC Distribution Width SD 44.5 fl (35.1-43.9); Red Blood Count 4.32 M/mm3 (4.6-6.2); White Blood Count 6.7 K/mm3 (4.4-11.0)
[2020-10-13 06:36] LABS: Anion Gap 4 (5-15); BUN 18 mg/dL (7-18); BUN/Creat Ratio 27.3 RATIO (10-20); Chloride 105 mmol/L (98-107); Creatinine, Serum 0.66 mg/dL (0.70-1.30); EST Glomerular Filtration Rate 136 mL/min (>60); Est Glom Filt Rate - Afr Amer 165 mL/min (>60); Estimated Creatinine Clearance 107.71 ml/min; Glucose 96 mg/dL (74-106); Magnesium 2.2 mg/dL (1.6-2.6); Potassium 3.8 mmol/L (3.5-5.1); Sodium Level 139 mmol/L (136-145)
--- NOTE | 2020-10-13 07:57 | PCM.PN.HOSP ---
Subjective Subjective Patient is less tremulous. Consulted 180 counselling services Objective Data Objective Data Vital Signs: Vital Signs Temp Pulse Resp BP Pulse Ox 98.5 F 66 18 117/67 96 10/12/20 18:37 10/12/20 15:05 10/12/20 18:37 10/12/20 18:37 10/12/20 15:05 Oxygen Delivery Method Room Air Weight: 56.245 kg Body Mass Index (BMI) 21.9 Intake & Output: Intake and Output for Last 24 Hours 10/11/20 10/12/20 10/13/20 23:59 23:59 23:59 Intake Total 1220 / 1620 800 / 800 Output Total 450 / 450 Balance 1220 / 1170 350 / 350 Lab / Micro Data Result Diagrams: 10/13/20 05:24 10/13/20 05:24 Labs: Laboratory Results - last 24 hr 10/13/20 10/13/20 05:24 05:24 WBC 6.7 RBC 4.32 L Hgb 14.5 Hct 42.7 MCV 98.8 H MCH 33.6 H MCHC 34.0 RDW Std Deviation 44.5 H RDW Coeff of Jett 12.1 Plt Count 183 MPV 9.3 Immature Gran % (Auto) 0.300 Neut % (Auto) 68.8 Lymph % (Auto) 15.4 L [place] % (Auto) 9.3 Eos % (Auto) 5.8 H Baso % (Auto) 0.4 Absolute Neuts (auto) 4.6 Absolute Lymphs (auto) 1.04 Nucleated RBC % 0 Sodium 139 Potassium 3.8 Chloride 105 Carbon Dioxide 30.0 Anion Gap 4 L BUN 18 Creatinine 0.66 L Estim Creat Clear Calc 107.71 Est GFR (MDRD) Af Amer 165 Est GFR (MDRD) Non-Af 136 BUN/Creatinine Ratio 27.3 H Glucose 96 Calcium 9.0 Magnesium 2.2 Physical Exam Narrative GENERAL: cooperative HEENT: Atraumatic; EYES; Anicteric, Normal Conjunctiva NECK; supple, normal thyroid, RESPIRATORY: Diminished to auscultation CARDIOVASCULAR: Regular S1 S2, GI: soft, normoactive bowel sounds, : No Renal angle tenderness; EXTREMITIES: No edema, no clubbing, MUSCULOSKELETAL: no muscle waisting NEURO: Awake; no lateralizing signs. SKIN: No Rash PSYCH; Flat affect Assessment & Plan Assessment/Plan (1) Alcohol withdrawal: PLAN: ?Patient is a 50-year-old gentleman with history of chronic alcohol abuse admitted with acute alcohol withdrawal 1.? Acute alcohol withdrawal ?Patient has been admitted to regular nursing floor for medical stabilization using phenobarb taper -10/13/2020; patient is less tremulous compared to the previous day. Consult was placed to counseling services to assist with discharge 2.? Chronic alcohol abuse ?Patient was counseled on cessation 3.? Mild intermittent asthma ?Currently not in exacerbation aerosol treatment as needed 4.? Tobacco dependence - Counseled on cessation, offered nicotine patch for tobacco cravings 5.? History of seizure disorder -patient not on any antiseizure medications in any case patient is on phenobarb taper 6. DVT prophylaxis - Low risk.? Encouraged to ambulate Visit Charges Inpatient E&M: 30635 Subs Hosp L2
[2020-10-13] MEDS: Thiamine Hydrochloride 100 MG Tablet PO (09:42)
[2020-10-13] MEDS: Folic Acid 1 MG Tablet PO (09:42)
[2020-10-13 09:48] VITALS: BP 126/82; PULSE 69; RESP 18; TEMP 36.7; O2SAT 97
--- NOTE | 2020-10-13 10:49 | ADDICTION ---
This auto service writer met with PT to conduct ASAM, MSE, AUDIT assessments and to plan for d/c. PT A+Ox4 and participated appropriately. All assessments completed, faxed to [facility] and placed in PT's chart. PT plans to f/u with [facility] for assessment and ongoing counseling. PT plans to d/c to home and will walk to home from [facility].
[2020-10-13 14:52] VITALS: BP 121/80; PULSE 69; RESP 18; TEMP 36.6; O2SAT 98
[2020-10-13 14:53] VITALS: BP 121/80; PULSE 69; RESP 18; TEMP 36.6; O2SAT 98
[2020-10-13 18:07] VITALS: BP 114/83; PULSE 74; RESP 18; TEMP 36.7; O2SAT 99
[2020-10-13] MEDS: traZODone 100 MG Tablet PO (22:03)
[2020-10-13 22:08] VITALS: BP 127/88; PULSE 73; RESP 17; TEMP 36.6; O2SAT 100
[2020-10-14 02:51] VITALS: BP 113/77; PULSE 55; RESP 15; TEMP 36.7; O2SAT 98
[2020-10-14] MEDS: Phenobarbital 32.4 MG Tablet 64.8 MG PO ×2 (02:52→09:48)
[2020-10-14 05:45] LABS: Absolute Lymphocyte Count 1.34 X10^3/uL (0.83-4.51); Absolute Neutrophil Count 3.8 X10^3/uL (2.0-7.7); Basophil# 0.04 X10^3/uL; Basophil% 0.6 % (0-1); Eosinophil# 0.52 X10^3/uL; Eosinophils% 8.1 % (0-5); Hematocrit 42.8 % (40-54); Lymphocyte # 1.34 X10^3/ul (0.83-4.51); Lymphocyte % 20.8 % (19-41); Mean Corpuscular Hgb 34.2 pg (27.0-32.0); Mean Corpuscular Volume 97.5 fL (80-94); Mean Platelet Vol. 8.8 fl (6.2-12.0); Monocyte# 0.75 X10^3/uL; Monocyte% 11.6 % (0-10); NRBC Flagged by Analyzer 0 % (0-5); Neutrophil # 3.77 X10^3/uL (2.7-7.7); Neutrophil % 58.4 % (47-70); Platelet Count 190 K/mm3 (150-450); RBC Distribution Width CV 12.5 % (11.6-14.6); RBC Distribution Width SD 44.8 fl (35.1-43.9); Red Blood Count 4.39 M/mm3 (4.6-6.2); White Blood Count 6.5 K/mm3 (4.4-11.0)
[2020-10-14 06:06] LABS: Anion Gap 4 (5-15); BUN 16 mg/dL (7-18); BUN/Creat Ratio 21.7 RATIO (10-20); Calcium,Total 8.7 mg/dL (8.5-10.1); Chloride 105 mmol/L (98-107); Creatinine, Serum 0.74 mg/dL (0.70-1.30); EST Glomerular Filtration Rate 120 mL/min (>60); Est Glom Filt Rate - Afr Amer 145 mL/min (>60); Estimated Creatinine Clearance 96.06 ml/min; Glucose 82 mg/dL (74-106); Potassium 3.8 mmol/L (3.5-5.1); Sodium Level 138 mmol/L (136-145)
--- NOTE | 2020-10-14 07:19 | PCM.DC.SUM ---
Providers Date of Admission: 10/11/20 Primary Care Physician: No Primary Care Phys Reason For Visit: ACUTE ALCOHOL WITHDRAWAL Diagnosis Discharge Diagnosis (1) Alcohol withdrawal: Status: Acute Code(s): F10.239 - Alcohol dependence with withdrawal, unspecified Medications at Discharge Home Medications NK 10/11/20 Hospital Course Summary of Care Provided Minutes Spent on Discharge: 35 Hospital Course: Patient is a 50-year-old gentleman with history of chronic alcohol abuse admitted with acute alcohol withdrawal 1.? Acute alcohol withdrawal ?Patient has been admitted to regular nursing floor for medical stabilization using phenobarb taper -10/13/2020; patient is less tremulous compared to the previous day.? Consult was placed to counseling services to assist with discharge -10/14/2020; patient ready for discharge he will follow up with [facility] counseling services 2.? Chronic alcohol abuse ?Patient was counseled on cessation 3.? Mild intermittent asthma ?Currently not in exacerbation aerosol treatment as needed 4.? Tobacco dependence - Counseled on cessation, offered nicotine patch for tobacco cravings 5.? History of seizure disorder -patient not on any antiseizure medications in any case patient is on phenobarb taper 6. DVT prophylaxis - Low risk.? Encouraged to ambulate Physical Exam Narrative GENERAL: cooperative HEENT: Atraumatic; EYES; Anicteric, Normal Conjunctiva NECK; supple, normal thyroid, RESPIRATORY: Diminished to auscultation CARDIOVASCULAR:? Regular S1 S2, GI:? soft, normoactive bowel sounds, : No Renal angle tenderness; EXTREMITIES:? No edema, no clubbing, MUSCULOSKELETAL:? no muscle waisting NEURO:? Awake;? no lateralizing signs. SKIN:? No Rash PSYCH; Flat? affect ABG / Lab / Microbiology Data Result Diagrams: 10/14/20 05:31 10/14/20 05:31 Laboratory: Laboratory Results - last 24 hr 10/14/20 10/14/20 05:31 05:31 WBC 6.5 RBC 4.39 L Hgb 15.0 Hct 42.8 MCV 97.5 H MCH 34.2 H MCHC 35.0 RDW Std Deviation 44.8 H RDW Coeff of Jett 12.5 Plt Count 190 MPV 8.8 Immature Gran % (Auto) 0.500 Neut % (Auto) 58.4 Lymph % (Auto) 20.8 [place] % (Auto) 11.6 H Eos % (Auto) 8.1 H Baso % (Auto) 0.6 Absolute Neuts (auto) 3.8 Absolute Lymphs (auto) 1.34 Nucleated RBC % 0 Sodium 138 Potassium 3.8 Chloride 105 Carbon Dioxide 29.0 Anion Gap 4 L BUN 16 Creatinine 0.74 Estim Creat Clear Calc 96.06 Est GFR (MDRD) Af Amer 145 Est GFR (MDRD) Non-Af 120 BUN/Creatinine Ratio 21.7 H Glucose 82 Calcium 8.7 D/C Instructions Discharge Diet: No restrictions Return to work on: 10/18/20 Meaningful Use Info Meaningful Use Diagnoses (Choose all that apply): None applicable Discharge Plan Admission Admit Date/Time: 10/11/20 17:49 Primary Reason for Your Visit: Acute alcohol withdrawal Attending Provider: Paulo House Primary Care Provider: Care Physician,No Primary Instructions Forms: Work / School Excuse Patient Instructions: ED Withdrawal Alcohol Discharge Orders/Prescriptions Prescriptions: No Action NK RF: 0 Referrals / Follow Up: Belem Moffett DO [STAFF PHYSICIAN] - Within 1 Week Care Physician,No Primary [Primary Care Provider] - Disposition Disposition (needs filled in before D/C Order can be placed): Home, self care Visit Charges Inpatient E&M: 55015 Disch Hosp
[2020-10-14] MEDS: Thiamine Hydrochloride 100 MG Tablet PO (09:50)
[2020-10-14] MEDS: Folic Acid 1 MG Tablet PO (09:50)
--- NOTE | 2020-10-14 09:59 | PHA.DC.MR ---
Pharmacy Service has performed discharge medication reconciliation for this patient. No new medications at time of discharge. Home Medications NK 10/11/20 The patient's discharge medication list was reviewed for discrepancies and discrepancies were resolved.
[2020-10-14 10:04] VITALS: BP 105/71; PULSE 60; RESP 16; TEMP 36.7; O2SAT 98
== END 2020-10-14 12:50 | disposition home or self-care (01) | DRG 897 ==
LOC: ED 13:17 → MS3 16:12
PROVIDERS: Admitting Provider Student in an Organized Health Care Education/Training Program; Emergency Provider Emergency Medicine; Visit Provider Internal Medicine
DX: F10.239 Alcohol dependence with withdrawal, unspecified (principal); J45.20 Mild intermittent asthma, uncomplicated; G40.909 Epilepsy, unspecified, not intractable, without status epilepticus; F17.220 Nicotine dependence, chewing tobacco, uncomplicated; Y90.5 Blood alcohol level of 100-119 mg/100 ml
CPT/HCPCS: 36415; 80048; 80053; 80307; 82077; 83735; 84484; 85025; 97802; 99283

== ENCOUNTER 2021-01-03 11:03 | Emergency (ER) | payer OTHER, SELFPAY ==
[2020-11-01 14:30] VITALS: BMI 21.9
[2021-01-03 11:04] VITALS: BP 116/83; PULSE 57; RESP 18; TEMP 35.6; O2SAT 100; BMI 21.7
[2021-01-03 11:54] LABS: Absolute Lymphocyte Count 0.69 X10^3/uL (0.83-4.51); Absolute Neutrophil Count 6.1 X10^3/uL (2.0-7.7); Basophil# 0.03 X10^3/uL; Basophil% 0.4 % (0-1); Eosinophil# 0.14 X10^3/uL; Eosinophils% 1.9 % (0-5); Hematocrit 43.8 % (40-54); Hemoglobin 14.9 g/dL (13.0-16.5); Lymphocyte # 0.69 X10^3/ul (0.83-4.51); Lymphocyte % 9.2 % (19-41); Mean Corpuscular Hgb 33.4 pg (27.0-32.0); Mean Corpuscular Volume 98.2 fL (80-94); Mean Platelet Vol. 9.1 fl (6.2-12.0); Monocyte# 0.56 X10^3/uL; Monocyte% 7.4 % (0-10); NRBC Flagged by Analyzer 0 % (0-5); Neutrophil % 80.8 % (47-70); Platelet Count 188 K/mm3 (150-450); RBC Distribution Width CV 11.7 % (11.6-14.6); RBC Distribution Width SD 42.4 fl (35.1-43.9); Red Blood Count 4.46 M/mm3 (4.6-6.2); White Blood Count 7.5 K/mm3 (4.4-11.0)
--- NOTE | 2021-01-03 11:55 | EDS_ITS ---
HPI History of Present Illness Chief Complaint: Seizure Informant: patient Narrative Narrative: Patient is a 50-year-old male who presents to the emergency department for feeling like he could potentially have a seizure. He does have a distant history of seizure disorder but was taken off his medications in the 80s. He has not had a seizure since then. He does have a history of alcohol abuse. He states he typically drinks around 2 12 ounce beers per day. He went to [facility] today and got a shot for his alcohol use. He does not know what medication this was and has never had a before. He was also sent home with oral medications for the next 6 days to try. Patient states that he saw some spots in his vision. He felt like he could have a seizure but never had one. He is starting to feel better at this time. He has had a mild headache. No vision changes now. No neck pain or stiffness. No chest pain, shortness of breath or abdominal pain. He denies any recent illness including any fever/chills. [facility] Medical History (Updated 01/03/21 @ 13:[address] Marcial Robins DO) Acute bronchitis, unspecified Alcohol abuse Asthma Chewing tobacco use Fever Former smoker GERD (gastroesophageal reflux disease) Lab test negative for COVID-19 virus Seizures Seizures SOB (shortness of breath) URI (upper respiratory infection) Vision loss of left eye Home Medications NK 01/03/21 [History Last Taken Unknown] Allergy/AdvReac Type Severity Reaction Status Date / Time No Known Allergies Allergy Verified 01/03/21 11:07 Surgical History History of hernia repair Social History Smoking Status: Former smoker Smokeless tobacco user: chewing tobacco alcohol intake: current alcohol intake frequency: 0-2 drinks per day ROS ROS ED Constitutional Constitutional ED: Denies chills or fever(s) Eyes Eyes: Reports change in vision ENT ENT ED: Denies epistaxis or rhinorrhea Cardiovascular Cardiovascular: Denies chest pain or palpitations Respiratory/Chest Respiratory/Chest: Denies cough, dyspnea or dyspnea on exertion Gastrointestinal Gastrointestinal: Denies abdominal pain, diarrhea, nausea or vomiting Genitourinary Genitourinary ED: Denies dysuria, hematuria or urinary frequency Musculoskeletal Musculoskeletal: Denies back pain or neck pain Integumentary Denies rash Neurologic Neurologic: Reports headache(s); Denies dizziness or weakness EXAM Physical Exam Const Vital Signs: 01/03/21 11:04 01/03/21 13:44 Temperature 96.1 F L Temperature Source Temporal Pulse Rate 57 L 66 Respiratory Rate 18 15 Blood Pressure 116/83 H 118/83 H Blood Pressure Mean 94 Pulse Ox 100 98 Oxygen Delivery Method Room Air Positive well nourished and well developed General Appearance ED: well developed and NAD HEENT Reports normocephalic, head/scalp atraumatic and moist mucous membranes Eyes PERRL and EOMs intact bilaterally Neck supple Chest Wall inspection of chest normal Resp normal respiratory effort and clear to auscultation bilaterally Auscultation: Negative for rales, rhonchi or wheezes Cardio regular rate, regular rhythm and no murmurs GI normal to inspection, nondistended, normoactive bowel sounds and non-tender Palpation: soft; Negative for guarding or rebound tenderness present Back/Spine no CVA tenderness Extremity normal to inspection General Extremety ED: Negative for edema or tenderness General Extremity: Negative for edema Neuro oriented x3, CN's II-XII intact bilaterally and no sensory deficits noted Sensorium / Orientation: alert Motor Exam: strength 5/5 throughout Psych mental status grossly normal Skin no rashes or lesions noted MDM MDM MDM Narrative Medical decision making narrative: Patient presents to the emergency department for feeling like he could potentially have a seizure. He is starting to feel better at this time. It was after getting an unknown shot at [facility]. On arrival to the emergency department vital signs within normal limits. He is in no acute distress. He has a benign physical exam. Patient's lab work did not reveal any significant acute abnormality. No electrolyte disturbance. He is not anemic. He Does not have a high white blood cell count. On reexamination he is resting comfortably and feeling much better at this time. He does feel comfortable going home. He is requesting a work excuse for today and he will be provided 1. He is to follow-up with his PCP. Return precautions are reviewed. He understands and is agreeable this plan. All questions are answered. Lab Data Labs: Laboratory Results - last 24 hr 01/03/21 01/03/21 11:50 11:50 WBC 7.5 RBC 4.46 L Hgb 14.9 Hct 43.8 MCV 98.2 H MCH 33.4 H MCHC 34.0 RDW Std Deviation 42.4 RDW Coeff of Jett 11.7 Plt Count 188 MPV 9.1 Immature Gran % (Auto) 0.300 Neut % (Auto) 80.8 H Lymph % (Auto) 9.[address] [place] % (Auto) 7.4 Eos % (Auto) 1.9 Baso % (Auto) 0.4 Absolute Neuts (auto) 6.1 Absolute Lymphs (auto) 0.69 L Nucleated RBC % 0 Sodium 140 Potassium 3.6 Chloride 106 Carbon Dioxide 29.0 Anion Gap 5 BUN 12 Creatinine 0.82 Estim Creat Clear Calc 85.54 Est GFR (MDRD) Af Amer 129 Est GFR (MDRD) Non-Af 106 BUN/Creatinine Ratio 14.7 Glucose 116 H Calcium 8.9 Discharge Plan Triage Chief Complaint: Seizure ED Provider: Marcial Robins Dx/Rx/DC Orders Clinical Impression: Aura Instructions: ED Symptoms With Uncertain Cause Prescriptions: No Action NK RF: 0 Primary Care Provider: Care Physician,No Primary Referrals: Care Physician,No Primary [Primary Care Provider] - 2 Days Disposition Disposition: Home, Self Care Discharge Date/Time: 01/03/21 13:44
[2021-01-03 12:10] LABS: Anion Gap 5 (5-15); BUN 12 mg/dL (7-18); BUN/Creat Ratio 14.7 RATIO (10-20); Calcium,Total 8.9 mg/dL (8.5-10.1); Chloride 106 mmol/L (98-107); Creatinine, Serum 0.82 mg/dL (0.70-1.30); EST Glomerular Filtration Rate 106 mL/min (>60); Est Glom Filt Rate - Afr Amer 129 mL/min (>60); Estimated Creatinine Clearance 85.54 ml/min; Glucose 116 mg/dL (74-106); Potassium 3.6 mmol/L (3.5-5.1); Sodium Level 140 mmol/L (136-145)
[2021-01-03 13:44] VITALS: BP 118/83; PULSE 66; RESP 15; O2SAT 98
== END 2021-01-03 13:44 | disposition home or self-care (01) ==
PROVIDERS: Emergency Provider Emergency Medicine
DX: H53.8 Other visual disturbances (principal); J45.909 Unspecified asthma, uncomplicated; K21.9 Gastro-esophageal reflux disease without esophagitis; Z87.891 Personal history of nicotine dependence
CPT/HCPCS: 80048; 85025; 99282

== ENCOUNTER 2021-04-28 12:45 | Emergency (ER) | payer OTHER, SELFPAY ==
[2021-04-28 12:45] VITALS: BP 138/88; PULSE 98; RESP 16; TEMP 36.6; O2SAT 99
[2021-04-28 15:14] VITALS: BP 146/83; PULSE 84; O2SAT 99
--- NOTE | 2021-04-28 15:42 | ED.VIS.GI ---
HPI HPI - GI History of Present Illness Chief Complaint: Nausea/Vomiting Informant: patient Abdominal Pain/Flank Pain Onset: Weeks (1) Context: Gradual Onset Timing: Continuous Quality: Dull (Mild) Location: Epigastric Worsened by: - (Drinking water) Relieved by: Nothing Nausea/Vomiting/Emesis GI Symptom: Positive for Nausea and Vomiting Quality: Negative for Coffee ground and Hematemesis Diarrhea/Melena/Hematochezia GI Symptom: Negative for Diarrhea, Melena and Hematochezia Associated Symptoms Associated Symptoms: Negative for Dysuria, Frequency and Hematuria Narrative Narrative: Patient presents with mild abdominal pain, nausea, and vomiting that has been waxing and waning over the past week. Patient states it was started to get better and then became worse yesterday. Patient states he has pain over the epigastric area. Patient describes it as dull. Patient states it gets better with drinking water. Patient denies any hematemesis or coffee-ground emesis. Patient denies any diarrhea, melena, or hematochezia. PFSH PFS Medical History Acute bronchitis, unspecified Alcohol abuse Asthma Chewing tobacco use Fever Former smoker GERD (gastroesophageal reflux disease) Lab test negative for COVID-19 virus Seizures Seizures SOB (shortness of breath) URI (upper respiratory infection) Vision loss of left eye Home Medications NK 01/03/21 [History Last Taken Unknown] Allergy/AdvReac Type Severity Reaction Status Date / Time No Known Allergies Allergy Verified 04/28/21 12:48 Surgical History History of hernia repair Social History Smoking Status: Former smoker Smokeless tobacco user: chewing tobacco alcohol intake: current alcohol intake frequency: 0-2 drinks per day ROS ROS ED Constitutional Constitutional ED: Denies chills or fever(s) Eyes Eyes: Denies blurry vision or change in vision ENT ENT ED: Reports rhinorrhea; Denies sore throat Cardiovascular Cardiovascular: Denies chest pain or palpitations Respiratory/Chest Respiratory/Chest: Reports cough and dyspnea Gastrointestinal Gastrointestinal: Reports abdominal pain, nausea and vomiting Genitourinary Genitourinary ED: Denies dysuria or hematuria Musculoskeletal Musculoskeletal: Reports back pain and neck pain Integumentary Denies abscess or rash Neurologic Neurologic: Denies headache(s) or weakness Allergic/Immunologic Allergic/Immunologic ED: Denies mouth swelling or urticaria EXAM Physical Exam Const Vital Signs: 04/28/21 12:45 04/28/21 15:14 Temperature 97.9 F Temperature Source Temporal Pulse Rate 98 84 Respiratory Rate 16 Blood Pressure 138/88 H 146/83 H Blood Pressure Mean 104 104 Pulse Ox 99 99 Oxygen Delivery Method Room Air Room Air Positive well nourished and well developed General Appearance ED: well developed HEENT Reports moist mucous membranes Neck supple and no JVD Resp normal respiratory effort and clear to auscultation bilaterally Cardio regular rate, regular rhythm and no murmurs GI normal to inspection, nondistended, normoactive bowel sounds and non-distended Auscultation: normoactive bowel sounds Palpation: soft and tender epigastric (Mild); Negative for guarding or rebound tenderness present Extremity normal to inspection General Extremety ED: Negative for edema or tenderness General Extremity: Negative for edema Neuro oriented x3, CN's II-XII intact bilaterally and no sensory deficits noted Sensorium / Orientation: alert Motor Exam: strength 5/5 throughout Psych mental status grossly normal Skin no rashes or lesions noted MDM MDM MDM Narrative Medical decision making narrative: Patient was given IV fluids and Zofran. CBC and comprehensive metabolic profile were within normal limits. Lipase was normal. Patient is feeling better on reevaluation. Patient was given a note for work for today. Patient was instructed to start with a liquid diet and advance to a regular diet as she feels better. Patient was instructed to follow-up with his primary care physician in 5 to 7 days. Patient understood and was agreeable with the plan. All questions were answered. Lab Data Attestation: I reviewed the patient's lab results. Labs: Laboratory Results - last 24 hr 04/28/21 04/28/21 15:50 15:50 WBC 6.7 RBC 4.65 Hgb 14.8 Hct 43.6 MCV 93.8 MCH 31.8 MCHC 33.9 RDW Std Deviation 43.8 RDW Coeff of Jett 12.8 Plt Count 213 MPV 8.6 Immature Gran % (Auto) 0.900 Neut % (Auto) 80.8 H Lymph % (Auto) 9.5 L [place] % (Auto) 6.6 Eos % (Auto) 1.7 Baso % (Auto) 0.5 Absolute Neuts (auto) 5.4 Absolute Lymphs (auto) 0.63 L Nucleated RBC % 0 Sodium 144 Potassium 4.2 Chloride 111 H Carbon Dioxide 31.0 Anion Gap 2 L BUN 13 Creatinine 0.76 Estim Creat Clear Calc 3.91 Est GFR (MDRD) Af Amer 140 Est GFR (MDRD) Non-Af 115 BUN/Creatinine Ratio 17.1 Glucose 104 Calcium 8.9 Total Bilirubin 0.20 AST 18 ALT 24 Alkaline Phosphatase 69 Total Protein 7.2 Albumin 3.5 Globulin 3.7 Albumin/Globulin Ratio 0.9 Lipase 109 Discharge Plan Triage Chief Complaint: Nausea/Vomiting ED Provider: Sammy Evans Dx/Rx/DC Orders Clinical Impression: Nausea and vomiting Instructions: ED Vomiting (Adult) Prescriptions: No Action NK RF: 0 Stand Alone Forms: ED Work / School Excuse Primary Care Provider: Care Physician,No Primary Referrals: Hilda Riddle MD [STAFF PHYSICIAN] - 3-5 Days Care Physician,No Primary [Primary Care Provider] - Disposition Disposition: Home, Self Care
--- NOTE | 2021-04-28 15:45 | CM.ED ---
SW Note Referral Source: Case Find Referral Reason: No Primary Care Physician (PCP) SW reviewed chart and noted that patient has no PCP. SW provided patient with list of [facility] and [facility] Physician List for reference No other issues or concerns voiced at this time. SW remains available for any additional needs. Plan: Provided patient with PCP information Masha COE
[2021-04-28] MEDS: 0.9% Normal Saline 1,000 ML 1000 ML IV (16:00)
[2021-04-28] MEDS: Ondansetron 4 MG/2 ML Vial IV (16:01)
[2021-04-28 16:07] LABS: Absolute Lymphocyte Count 0.63 X10^3/uL (0.83-4.51); Absolute Neutrophil Count 5.4 X10^3/uL (2.0-7.7); Basophil# 0.03 X10^3/uL; Basophil% 0.5 % (0-1); Eosinophil# 0.11 X10^3/uL; Eosinophils% 1.7 % (0-5); Hematocrit 43.6 % (40-54); Hemoglobin 14.8 g/dL (13.0-16.5); Lymphocyte # 0.63 X10^3/ul (0.83-4.51); Lymphocyte % 9.5 % (19-41); Mean Corp Hgb Conc 33.9 g/dL (32-36); Mean Corpuscular Hgb 31.8 pg (27.0-32.0); Mean Corpuscular Volume 93.8 fL (80-94); Mean Platelet Vol. 8.6 fl (6.2-12.0); Monocyte# 0.44 X10^3/uL; Monocyte% 6.6 % (0-10); NRBC Flagged by Analyzer 0 % (0-5); Neutrophil # 5.38 X10^3/uL (2.7-7.7); Neutrophil % 80.8 % (47-70); Platelet Count 213 K/mm3 (150-450); RBC Distribution Width CV 12.8 % (11.6-14.6); RBC Distribution Width SD 43.8 fl (35.1-43.9); Red Blood Count 4.65 M/mm3 (4.6-6.2); White Blood Count 6.7 K/mm3 (4.4-11.0)
[2021-04-28 16:21] LABS: ALB/GLOB Ratio 0.9 RATIO (0.9-2.4); AST(SGOT) 18 U/L (15-37); Alanine Aminotransfer ALT/SGPT 24 U/L (16-61); Albumin, Serum 3.5 g/dL (3.2-5.0); Alkaline Phosphatase 69 U/L (45-117); Anion Gap 2 (5-15); BUN 13 mg/dL (7-18); BUN/Creat Ratio 17.1 RATIO (10-20); Calcium,Total 8.9 mg/dL (8.5-10.1); Chloride 111 mmol/L (98-107); Creatinine, Serum 0.76 mg/dL (0.70-1.30); EST Glomerular Filtration Rate 115 mL/min (>60); Est Glom Filt Rate - Afr Amer 140 mL/min (>60); Estimated Creatinine Clearance 3.91 ml/min; Globulin 3.7 g/dL (2.2-4.2); Glucose 104 mg/dL (74-106); Lipase 109 U/L (73-393); Potassium 4.2 mmol/L (3.5-5.1); Protein, Total 7.2 g/dL (6.4-8.2); Sodium Level 144 mmol/L (136-145)
[2021-04-28 18:56] VITALS: BP 139/68; PULSE 79; RESP 14; O2SAT 96
== END 2021-04-28 19:00 | disposition home or self-care (01) ==
LOC: ED 16:12
PROVIDERS: Emergency Provider Emergency Medicine
DX: R11.2 Nausea with vomiting, unspecified (principal); J45.909 Unspecified asthma, uncomplicated; K21.9 Gastro-esophageal reflux disease without esophagitis; Z87.891 Personal history of nicotine dependence
CPT/HCPCS: 80053; 83690; 85025; 96361; 96374; 99282; J7030; J2405

== ENCOUNTER 2021-06-06 11:01 | Emergency (ER) | payer OTHER, SELFPAY ==
[2021-06-06 11:02] VITALS: BP 119/79; PULSE 67; RESP 15; TEMP 36; O2SAT 100; BMI 22.8
--- NOTE | 2021-06-06 12:12 | EKG12_ITS ---
Test Reason : NAUSEA/VOMITING Blood Pressure : / mmHG Vent. Rate : 071 BPM Atrial Rate : 071 BPM P-R Int : 124 ms QRS Dur : 078 ms QT Int : 358 ms P-R-T Axes : 046 043 014 degrees QTc Int : 389 ms Normal sinus rhythm Normal ECG Confirmed by IRAIS OSORIO, MICHELLE ([id number]), make up editor LOKESH CALIX ([id number]) on 06/07/2021 1:53:13 PM Referred By: JULIO/CASI Confirmed By:MICHELLE BRAXTON MD
--- NOTE | 2021-06-06 12:24 | EDS_ITS ---
HPI History of Present Illness Chief Complaint: Nausea/Vomiting Informant: patient Narrative Narrative: Patient presents after an episode he had this morning. He has had these before. He evidently had not eaten. He had some coffee. He felt a little jittery shaky and almost some mild nausea. It lasted for about 10 minutes and then went away. He feels fine now. He states he already called work that he would not be in today. He states he would just like to have a work note and he wants to go home. He has not been feeling sick recently. He never had chest pain. He had no dyspnea. He did not pass out or fall. No palpitations. He has had a history of seizures in the past but is not on meds now. But he states he gets warning before his seizures but that is a different feeling than this. That is normally associated with a very warm feeling and t ingling. He states this felt different. He is back to normal. [facility] Medical History Acute bronchitis, unspecified Alcohol abuse Asthma Chewing tobacco use Fever Former smoker GERD (gastroesophageal reflux disease) Lab test negative for COVID-19 virus Seizures Seizures SOB (shortness of breath) URI (upper respiratory infection) Vision loss of left eye Home Medications NK 01/03/21 [History Last Taken Unknown] Allergy/AdvReac Type Severity Reaction Status Date / Time No Known Allergies Allergy Verified 06/06/21 11:04 Surgical History History of hernia repair Social History Smoking Status: Current every day smoker tobacco type: cigarettes and smokeless tobacco Smokeless tobacco user: chewing tobacco alcohol intake: current alcohol intake frequency: 0-2 drinks per day ROS ROS ED Constitutional Constitutional ED: Reports other Details: He did have some mild shaky feelings. However he was not actually trembling or shaking. ; Denies chills, fever(s) or subjective Eyes Eyes: Denies blurry vision or change in vision ENT ENT ED: Denies rhinorrhea or sore throat Cardiovascular Cardiovascular: Denies chest pain, palpitations or racing heartbeat Respiratory/Chest Respiratory/Chest: Denies cough, dyspnea, dyspnea on exertion or sputum Gastrointestinal Gastrointestinal: Reports nausea; Denies abdominal pain, diarrhea or vomiting Genitourinary Genitourinary ED: Denies dysuria Musculoskeletal Musculoskeletal: Denies arthralgias, back pain, myalgias or neck pain Integumentary Denies rash Neurologic Neurologic: Denies headache(s), paresthesias or weakness Psychiatric Psychiatric: Denies anxiety or depression Endocrine Endocrinology: Reports other Details: Patient was once told by somebody that he might be diabetic based on labs. He has not had this checked in a long time and is concerned about that today. He has no polyuria or polydipsia. No clouding of his vision. No lethargy. ; Denies polydipsia or polyuria Allergic/Immunologic Allergic/Immunologic ED: Denies mouth swelling or urticaria EXAM Physical Exam Const Vital Signs: 06/06/21 11:02 Temperature 96.8 F L Temperature Source Temporal Pulse Rate 67 Respiratory Rate 15 Blood Pressure 119/79 Blood Pressure Mean 92 Pulse Ox 100 Oxygen Delivery Method Room Air Positive well nourished and well developed General Appearance ED: well developed and NAD; Negative for cyanotic, diaphoretic or pallor HEENT Reports moist mucous membranes; Denies dry mucous membranes Negative for trauma Mouth ED: No dry mucous membranes Mouth: No dry mucous membranes Eyes General Eye ED: Negative for pale conjunctiva or scleral icterus Neck no JVD Chest Wall inspection of chest normal Resp normal respiratory effort and clear to auscultation bilaterally Effort and Inspection: Negative for pain with movement Auscultation: Negative for rales, rhonchi or wheezes Cardio regular rate, regular rhythm and no murmurs GI normal to inspection, nondistended, normoactive bowel sounds and non-tender Palpation: soft Back/Spine no CVA tenderness Extremity normal to inspection General Extremety ED: Negative for edema or tenderness General Extremity: Negative for edema Neuro oriented x3 Sensorium / Orientation: alert Psych mental status grossly normal Skin no rashes or lesions noted and no wounds General Skin Exam: Negative for jaundice or pallor MDM MDM MDM Narrative Medical decision making narrative: Patient had transient mild symptoms of shakiness and slight nausea. He has had these before. He states he just wants a note for work. I did convince him to at least check his blood sugar which she was somewhat concerned about. We also did EKG. He would like to go. And this is reasonable. We discussed reasons to return. EKG Initial EKG: Comments: EKG done for mild lightheadedness and read by me showed a normal sinus rhythm with overall rate of 71. No acute ST elevation or depression. No ectopy. MA interval, QRS duration and QTC are normal. Discharge Plan Triage Chief Complaint: Nausea/Vomiting ED Provider: Collins Reece Dx/Rx/DC Orders Clinical Impression: Episodic lightheadedness Instructions: ED Dizziness, Uncertain Cause Prescriptions: No Action NK RF: 0 Primary Care Provider: Care Physician,No Primary Referrals: Tanner Vargas DO [STAFF PHYSICIAN] - 3-5 Days Care Physician,No Primary [Primary Care Provider] - Disposition Disposition: Home, Self Care
[2021-06-06 12:30] LABS: Bedside Glucose 106 mg/dL (70-110)
== END 2021-06-06 12:46 | disposition home or self-care (01) ==
PROVIDERS: Emergency Provider Emergency Medicine; Visit Provider Emergency Medicine
DX: R42 Dizziness and giddiness (principal); R11.2 Nausea with vomiting, unspecified; F17.210 Nicotine dependence, cigarettes, uncomplicated; J45.909 Unspecified asthma, uncomplicated; F17.220 Nicotine dependence, chewing tobacco, uncomplicated
CPT/HCPCS: 82962; 93005; 99282

== ENCOUNTER 2021-07-18 12:35 | Emergency (ER) | payer OTHER, SELFPAY ==
[2021-07-18 12:36] VITALS: BP 123/82; PULSE 80; RESP 16; TEMP 36.5; O2SAT 97; BMI 22.4
--- NOTE | 2021-07-18 15:14 | EX.ED.DYSGE1 ---
HPI History of Present Illness Chief Complaint: Abd Pain Detail of Chief Complaint: Abdominal shaking and tremors Informant: patient Onset/Context/Timing Onset: Hours (Onset at 1130) Context: Sudden Onset Timing: Continuous Current Severity: Mild Maximum Severity: Moderate Worsened by: Nothing Relieved by: Nothing Associated Symptoms Associated Symptoms: No other symptoms Narrative Narrative: Patient is a 50-year-old male who has history of alcoholism. Is not had a drink in 1 month. He had a Vistaril shot earlier today at 180. He presents because of tremors and shaking abdomen that occurred at 1130. He was at his girlfriend's. He did report nausea. He denied vomiting or diarrhea. He denies dysuria, frequency, urgency or hematuria. He denies fever or chills. He denies night sweats. He is hip approximately a 6 pound unintentional weight loss over the past month. He denies ocular, visual or auditory symptoms. He denies back or bone pain. He denies rash. Prior similar symptoms: No Recent Illness/Hospitalization: No PFSH PFSH Medical History Acute bronchitis, unspecified Alcohol abuse Asthma Chewing tobacco use Fever Former smoker GERD (gastroesophageal reflux disease) Lab test negative for COVID-19 virus Seizures Seizures SOB (shortness of breath) URI (upper respiratory infection) Vision loss of left eye Home Medications NK 01/03/21 [History Last Taken Unknown] Allergy/AdvReac Type Severity Reaction Status Date / Time No Known Allergies Allergy Verified 07/18/21 12:38 Surgical History History of hernia repair Social History (Updated 07/18/21 @ 15:[address] Huseyin Marmolejo MD) household members: significant other Smoking Status: Current every day smoker tobacco type: smokeless tobacco Smokeless tobacco user: chewing tobacco alcohol intake: current alcohol intake frequency: 0-2 drinks per day details: Sober for 1 month substance use type: does not use ROS ROS ED Constitutional Constitutional ED: Reports weight loss; Denies chills, fever(s), subjective or sweats Eyes Eyes: Denies blurry vision, change in vision or diplopia ENT ENT ED: Denies ear pain, rhinorrhea or sore throat Cardiovascular Cardiovascular: Denies chest pain, palpitations or racing heartbeat Respiratory/Chest Respiratory/Chest: Denies cough, dyspnea or dyspnea on exertion Gastrointestinal Gastrointestinal: Reports abdominal pain and nausea; Denies constipation, diarrhea or vomiting Genitourinary Genitourinary ED: Denies dysuria, hematuria or urinary frequency Musculoskeletal Musculoskeletal: Denies arthralgias, back pain, myalgias or neck pain Integumentary Denies Abrasions or rash Neurologic Neurologic: Reports weakness; Denies headache(s) or paresthesias Psychiatric Psychiatric: Denies anxiety, depression or suicidal thoughts Endocrine Endocrinology: Denies polydipsia, polyphagia or polyuria Hematologic/Lymphatic Hematologic/Lymphatic: Denies anemia, easy bleeding or easy bruising EXAM Physical Exam Const Vital Signs: 07/18/21 12:36 07/18/21 15:17 Temperature 97.7 F L Temperature Source Temporal Pulse Rate 80 Respiratory Rate 16 18 Blood Pressure 123/82 H 127/74 H Blood Pressure Mean 95 91 Pulse Ox 97 Oxygen Delivery Method Room Air Positive well nourished, well developed and unkempt; Negative for obese, cachectic or contractures General Appearance ED: unkempt, well developed, NAD and pallor; Negative for cachectic, contractures, cyanotic or diaphoretic Nutritional Appearance: Negative for cachectic or obese HEENT Reports TM's clear, moist mucous membranes and other Nares patent. Uvula midline. No erythema or exudate. ; Denies dry mucous membranes Negative for trauma or tenderness Tympanic Membrane ED: Yes TM's clear Mouth ED: No dry mucous membranes Mouth: No dry mucous membranes Eyes PERRL and EOMs intact bilaterally General Eye ED: Negative for pale conjunctiva or scleral icterus Neck no lymphadenopathy, supple and no JVD Chest Wall inspection of chest normal Resp normal respiratory effort and clear to auscultation bilaterally Effort and Inspection: Negative for pain with movement Cardio regular rate, regular rhythm, S1 normal heart sound, S2 normal heart sound and no murmurs GI normal to inspection, nondistended, normoactive bowel sounds, non-tender and non-distended; Negative for hepatosplenomegaly Palpation: soft; Negative for splenomegaly or mass Back/Spine no CVA tenderness Cervical Spine: Negative for cervical spine tenderness Thoracic Spine / Upper Back: Negative for thoracic spinal tenderness or paraspinal muscle tenderness Lumbar Spine / Lower Back: Negative for lumbar spinal tenderness Extremity normal to inspection General Extremety ED: Negative for edema or tenderness General Extremity: Negative for edema Neuro oriented x3, CN's II-XII intact bilaterally and no sensory deficits noted Sensorium / Orientation: alert Motor Exam: strength 5/5 throughout Psych mental status grossly normal Appearance: unkempt Skin no rashes or lesions noted, no wounds and No skin turgor normal General Skin Exam: jaundice and pallor; Negative for elasticity normal MDM MDM MDM Narrative Medical decision making narrative: Patient presents with vague-like symptoms. Since he reports unintentional weight loss this may be due to malnutrition or malignancy will obtain baseline blood work and observe him. Since patient's laboratory work is unremarkable. Will discharge to home Lab Data Attestation: I reviewed the patient's lab results. Labs: Laboratory Results - last 24 hr 07/18/21 15:25 Sodium 136 Potassium 4.4 Chloride 102 Carbon Dioxide 30.0 Anion Gap 4 L BUN 13 Creatinine 0.82 Estim Creat Clear Calc 87.70 Est GFR (MDRD) Af Amer 128 Est GFR (MDRD) Non-Af 106 BUN/Creatinine Ratio 15.8 Glucose 102 Calcium 8.8 Total Bilirubin 0.70 AST 27 ALT 29 Alkaline Phosphatase 61 Total Protein 7.7 Albumin 3.8 Globulin 3.9 Albumin/Globulin Ratio 1.0 Discharge Plan Triage Chief Complaint: Abd Pain ED Provider: Huseyin Marmolejo Dx/Rx/DC Orders Clinical Impression: Bilateral upper abdominal discomfort, Anxiety related tremor Instructions: ED Abd Pain Unknown ... Prescriptions: No Action NK RF: 0 Primary Care Provider: Care Physician,No Primary Referrals: Care Physician,No Primary [Primary Care Provider] - Doctor,Your [STAFF PHYSICIAN] - Activity Restrictions/Additional Instructions: Follow-up with the doctor that is listed on your insurance card. Disposition Disposition: Home, Self Care
[2021-07-18 15:17] VITALS: BP 127/74; RESP 18
[2021-07-18 16:00] LABS: AST(SGOT) 27 U/L (15-37); Alanine Aminotransfer ALT/SGPT 29 U/L (16-61); Albumin, Serum 3.8 g/dL (3.2-5.0); Alkaline Phosphatase 61 U/L (45-117); Anion Gap 4 (5-15); BUN 13 mg/dL (7-18); BUN/Creat Ratio 15.8 RATIO (10-20); Calcium,Total 8.8 mg/dL (8.5-10.1); Chloride 102 mmol/L (98-107); Creatinine, Serum 0.82 mg/dL (0.70-1.30); EST Glomerular Filtration Rate 106 mL/min (>60); Est Glom Filt Rate - Afr Amer 128 mL/min (>60); Globulin 3.9 g/dL (2.2-4.2); Glucose 102 mg/dL (74-106); Potassium 4.4 mmol/L (3.5-5.1); Protein, Total 7.7 g/dL (6.4-8.2); Sodium Level 136 mmol/L (136-145)
[2021-07-18 17:36] VITALS: BP 124/80; PULSE 82; RESP 18
== END 2021-07-18 17:36 | disposition home or self-care (01) ==
PROVIDERS: Emergency Provider Emergency Medicine; Visit Provider Emergency Medicine
DX: R10.11 Right upper quadrant pain (principal); R10.12 Left upper quadrant pain; F41.9 Anxiety disorder, unspecified; R25.1 Tremor, unspecified; R63.4 Abnormal weight loss; J45.909 Unspecified asthma, uncomplicated; F17.220 Nicotine dependence, chewing tobacco, uncomplicated
CPT/HCPCS: 80053; 99283; A4216

== ENCOUNTER 2021-09-25 11:29 | Emergency (ER) | payer MEDICAID, SELFPAY ==
[2021-09-25 11:29] VITALS: BP 152/109; PULSE 101; RESP 16; TEMP 36.4; O2SAT 98; BMI 23.8
[2021-09-25 11:46] VITALS: BP 131/88; PULSE 98; RESP 13; O2SAT 98
--- NOTE | 2021-09-25 11:49 | EKG12_ITS ---
Test Reason : DIZZINESS Blood Pressure : / mmHG Vent. Rate : 083 BPM Atrial Rate : 083 BPM P-R Int : 120 ms QRS Dur : 084 ms QT Int : 352 ms P-R-T Axes : 055 053 033 degrees QTc Int : 413 ms Normal sinus rhythm Normal ECG Confirmed by SANDRA OSORIO, JOLANTA ([id number]), legal editor DEMETRIUS NEWELL ([id number]) on 09/26/2021 1:21:29 PM Referred By: Confirmed By:JOLANTA FLORES MD
--- NOTE | 2021-09-25 11:50 | EX.ED.DYSGE1 ---
HPI History of Present Illness Chief Complaint: Dizziness Informant: patient Onset/Context/Timing Onset: Today Current Severity: Mild Maximum Severity: Moderate Narrative Narrative: Patient presents secondary to dizziness and lightheadedness. He states he was riding in the car from [place] to [place] when he had a sudden onset of lightheadedness with dizziness, mild palpitations, diarrhea, numbness to the left arm from elbow to wrist. Symptoms are improved now but not quite back to baseline. He still feels nauseated. He denies chest pain. No recent fever or chills. [facility] Medical History Acute bronchitis, unspecified Alcohol abuse Asthma Chewing tobacco use Fever Former smoker GERD (gastroesophageal reflux disease) Lab test negative for COVID-19 virus Seizures Seizures SOB (shortness of breath) URI (upper respiratory infection) Vision loss of left eye Home Medications NK 01/03/21 [History Last Taken Unknown] Allergy/AdvReac Type Severity Reaction Status Date / Time No Known Allergies Allergy Verified 09/25/21 11:31 Surgical History History of hernia repair Social History household members: significant other Smoking Status: Current every day smoker tobacco type: smokeless tobacco Smokeless tobacco user: chewing tobacco alcohol intake: current alcohol intake frequency: 0-2 drinks per day details: Sober for 1 month substance use type: does not use ROS ROS ED Constitutional Constitutional ED: Denies chills or fever(s) Eyes Eyes: Denies change in vision ENT ENT ED: Denies sore throat Cardiovascular Cardiovascular: Reports palpitations; Denies chest pain Respiratory/Chest Respiratory/Chest: Denies cough or dyspnea Gastrointestinal Gastrointestinal: Reports diarrhea and nausea; Denies abdominal pain or vomiting Genitourinary Genitourinary ED: Denies dysuria Musculoskeletal Musculoskeletal: Denies back pain Integumentary Denies rash Neurologic Neurologic: Reports paresthesias; Denies headache(s) or weakness Allergic/Immunologic Allergic/Immunologic ED: Denies urticaria EXAM Physical Exam Const Vital Signs: 09/25/21 11:29 09/25/21 11:44 09/25/21 11:46 Temperature 97.6 F L Temperature Source Temporal Pulse Rate 101 H 98 Respiratory Rate 16 13 Respiratory Effort Normal Non-Labored Respiratory Pattern Normal Blood Pressure 152/109 H 131/88 H Blood Pressure Mean 123 102 Pulse Ox 98 98 Oxygen Delivery Method Room Air Room Air 09/25/21 13:08 09/25/21 13:42 Temperature Temperature Source Pulse Rate 88 83 Respiratory Rate 16 16 Respiratory Effort Respiratory Pattern Blood Pressure 134/85 H 134/85 H Blood Pressure Mean 101 Pulse Ox 98 98 Oxygen Delivery Method Room Air Positive well nourished and well developed General Appearance ED: well developed HEENT Reports moist mucous membranes Eyes PERRL and EOMs intact bilaterally Neck supple Chest Wall inspection of chest normal and palpation of chest normal Resp normal respiratory effort and clear to auscultation bilaterally Cardio regular rate and regular rhythm GI normal to inspection, nondistended, normoactive bowel sounds and non-tender Palpation: soft Extremity normal to inspection Neuro oriented x3 and no sensory deficits noted Sensorium / Orientation: alert Motor Exam: strength 5/5 throughout Psych mental status grossly normal Skin no rashes or lesions noted MDM MDM MDM Narrative Medical decision making narrative: Patient given IV fluids and Zofran. Lab work, EKG obtained. Lab Data Attestation: I reviewed the patient's lab results. Labs: Laboratory Results - last 24 hr 09/25/21 09/25/21 11:45 11:45 WBC 5.8 RBC 4.75 Hgb 15.6 Hct 44.8 MCV 94.3 H MCH 32.8 H MCHC 34.8 RDW Std Deviation 43.0 RDW Coeff of Jett 12.3 Plt Count 203 MPV 9.4 Immature Gran % (Auto) 0.500 Neut % (Auto) 80.3 H Lymph % (Auto) 9.5 L [place] % (Auto) 8.5 Eos % (Auto) 0.9 Baso % (Auto) 0.3 Absolute Neuts (auto) 4.6 Absolute Lymphs (auto) 0.55 L Nucleated RBC % 0 Differential Comment SCANNED Sodium 141 Potassium 3.6 Chloride 107 Carbon Dioxide 28.0 Anion Gap 6 BUN 15 Creatinine 0.84 Estim Creat Clear Calc 84.67 Est GFR (MDRD) Af Amer 124 Est GFR (MDRD) Non-Af 102 BUN/Creatinine Ratio 17.8 Glucose 120 H Calcium 9.1 EKG Initial EKG: Attestation: I personally reviewed and interpreted this EKG as follows: Interpretation: Sinus Rhythm (Sinus 83 with no acute ischemia.) Treatment and Re-Evaluation Narrative: On repeat evaluation patient resting comfortably. No complaints at this time. I believe his episode was likely vasovagal in nature as he states he needed to have diarrhea at the time. He said no cardiac dysrhythmias while here in the emergency room. He will be discharged home to continue supportive care. Patient is comfortable with this plan. Discharge Plan Triage Chief Complaint: Dizziness ED Provider: Jennie Saeed Dx/Rx/DC Orders Clinical Impression: Vasovagal near syncope Instructions: ED Near-Fainting- Vagal Reaction Prescriptions: No Action NK RF: 0 Primary Care Provider: Care Physician,No Primary Referrals: Alyx Hernandez MD [STAFF PHYSICIAN] - As Needed Care Physician,No Primary [Primary Care Provider] - Disposition Disposition: Home, Self Care Discharge Date/Time: 09/25/21 13:42
[2021-09-25] MEDS: 0.9% Normal Saline 1,000 ML 1000 ML IV (12:03)
[2021-09-25] MEDS: Ondansetron 4 MG/2 ML Vial IV (12:03)
[2021-09-25 12:26] LABS: Absolute Lymphocyte Count 0.55 X10^3/uL (0.83-4.51); Absolute Neutrophil Count 4.6 X10^3/uL (2.0-7.7); Basophil# 0.02 X10^3/uL; Basophil% 0.3 % (0-1); Eosinophil# 0.05 X10^3/uL; Eosinophils% 0.9 % (0-5); Hematocrit 44.8 % (40-54); Hemoglobin 15.6 g/dL (13.0-16.5); Lymphocyte # 0.55 X10^3/ul (0.83-4.51); Lymphocyte % 9.5 % (19-41); Mean Corp Hgb Conc 34.8 g/dL (32-36); Mean Corpuscular Hgb 32.8 pg (27.0-32.0); Mean Corpuscular Volume 94.3 fL (80-94); Mean Platelet Vol. 9.4 fl (6.2-12.0); Monocyte# 0.49 X10^3/uL; Monocyte% 8.5 % (0-10); NRBC Flagged by Analyzer 0 % (0-5); Neutrophil # 4.64 X10^3/uL (2.7-7.7); Neutrophil % 80.3 % (47-70); POSITIVE DIFFERENTIAL YES; Platelet Count 203 K/mm3 (150-450); RBC Distribution Width CV 12.3 % (11.6-14.6); Red Blood Count 4.75 M/mm3 (4.6-6.2); White Blood Count 5.8 K/mm3 (4.4-11.0)
[2021-09-25 12:27] LABS: Differential Indicated SCAN CRITERIA MET
[2021-09-25 12:46] LABS: Differential Comment SCANNED
[2021-09-25 12:55] LABS: Anion Gap 6 (5-15); BUN 15 mg/dL (7-18); BUN/Creat Ratio 17.8 RATIO (10-20); Calcium,Total 9.1 mg/dL (8.5-10.1); Chloride 107 mmol/L (98-107); Creatinine, Serum 0.84 mg/dL (0.70-1.30); EST Glomerular Filtration Rate 102 mL/min (>60); Est Glom Filt Rate - Afr Amer 124 mL/min (>60); Estimated Creatinine Clearance 84.67 ml/min; Glucose 120 mg/dL (74-106); Potassium 3.6 mmol/L (3.5-5.1); Sodium Level 141 mmol/L (136-145)
[2021-09-25 13:08] VITALS: BP 134/85; PULSE 88; RESP 16; O2SAT 98
[2021-09-25 13:42] VITALS: BP 134/85; PULSE 83; RESP 16; O2SAT 98
== END 2021-09-25 13:42 | disposition home or self-care (01) ==
PROVIDERS: Emergency Provider Emergency Medicine; Visit Provider Emergency Medicine
DX: R55 Syncope and collapse (principal); R42 Dizziness and giddiness; F17.220 Nicotine dependence, chewing tobacco, uncomplicated; K21.9 Gastro-esophageal reflux disease without esophagitis; J45.909 Unspecified asthma, uncomplicated
CPT/HCPCS: 80048; 85025; 93005; 96361; 96374; 99284; A4216; J2405

== ENCOUNTER 2021-10-19 20:35 | Emergency (ER) | payer MEDICAID, SELFPAY ==
[2021-10-19 20:36] VITALS: BP 132/82; PULSE 115; RESP 19; TEMP 36.3; O2SAT 99; BMI 23.9
--- NOTE | 2021-10-19 20:47 | EDS_ITS ---
HPI History of Present Illness Chief Complaint: General Illness Informant: patient Narrative Narrative: Patient's dates that he is felt warm all day like he might have a fever. A friend of his put his hand on him and thought he had a fever but he has not checked it. He denies any headache nasal congestion or cough or dyspnea. No facial pain. He has had some mild nausea but has been able to eat. Sometimes he gets a little reflux in the back of his throat but is not actually vomiting. No abdominal pain. No diarrhea. He does state that his urine is a little bit more frequent. But he is also been trying to drink a little bit more fluids because he was not that hungry today. He states when he walks normal. He is having no focal weakness. He has not no real myalgias. No rashes. Nothing makes symptoms better or worse but nothing has been tried. Patient states that he is overall healthy. No routine medications No known allergies Surgery was a left inguinal hernia [facility] Medical History Acute bronchitis, unspecified Alcohol abuse Asthma Chewing tobacco use Fever Former smoker GERD (gastroesophageal reflux disease) Lab test negative for COVID-19 virus Seizures Seizures SOB (shortness of breath) URI (upper respiratory infection) Vision loss of left eye Home Medications ondansetron 4 mg PO Q8H PRN #10 tab 10/19/21 [Rx Last Taken Unknown] Allergy/AdvReac Type Severity Reaction Status Date / Time No Known Allergies Allergy Verified 10/19/21 20:38 Surgical History History of hernia repair Social History household members: significant other Smoking Status: Current every day smoker tobacco type: smokeless tobacco Smokeless tobacco user: chewing tobacco alcohol intake: current alcohol intake frequency: 0-2 drinks per day details: Sober for 1 month substance use type: does not use ROS ROS ED Constitutional Constitutional ED: Reports subjective Eyes Eyes: Denies blurry vision, change in vision or diplopia ENT ENT ED: Denies rhinorrhea or sore throat Cardiovascular Cardiovascular: Denies chest pain or palpitations Respiratory/Chest Respiratory/Chest: Denies cough or dyspnea Gastrointestinal Gastrointestinal: Reports nausea; Denies abdominal pain, constipation, diarrhea, melena or vomiting Genitourinary Genitourinary ED: Reports urinary frequency; Denies dysuria or hematuria Musculoskeletal Musculoskeletal: Denies myalgias Integumentary Denies rash Neurologic Neurologic: Denies headache(s), paresthesias or weakness Psychiatric Psychiatric: Denies anxiety or depression Endocrine Endocrinology: Denies polydipsia or polyuria Allergic/Immunologic Allergic/Immunologic ED: Denies urticaria EXAM Physical Exam Const Vital Signs: 10/19/21 20:36 10/19/21 20:57 Temperature 97.3 F L Temperature Source Temporal Pulse Rate 115 H Respiratory Rate 19 H Respiratory Effort Normal Non-Labored Blood Pressure 132/82 H Blood Pressure Mean 98 Pulse Ox 99 Oxygen Delivery Method Room Air Positive well nourished and well developed General Appearance ED: well developed and NAD; Negative for cyanotic or diaphoretic HEENT Reports moist mucous membranes HEENT Narrative: No sinus tenderness. No nasal congestion. Oropharynx is normal. Negative for trauma Eyes PERRL Neck no lymphadenopathy Resp normal respiratory effort and clear to auscultation bilaterally Auscultation: Negative for rales, rhonchi or wheezes Cardio regular rate and regular rhythm Rate: other Other Details: Rate is about 90-95 sitting in bed. GI normal to inspection, nondistended, normoactive bowel sounds, non-tender and non-distended Auscultation: normoactive bowel sounds Palpation: soft Back/Spine no CVA tenderness Extremity normal to inspection Neuro Sensorium / Orientation: alert Psych mental status grossly normal Skin no rashes or lesions noted MDM MDM MDM Narrative Medical decision making narrative: COVID is negative. Urine is clean. Patient is feeling better. He wants a note for work so he can be off a day. I will write for some Zofran. We discussed reasons to return. Lab Data Attestation: I reviewed the patient's lab results. Labs: Laboratory Results - last 24 hr 10/19/21 20:55 Urine Color Yellow Urine Clarity Clear Urine pH 6.0 Ur Specific [place] 1.025 Urine Protein Negative Urine Glucose (UA) Normal Urine Ketones Negative Urine Occult Blood 10 H Urine Nitrite Negative Urine Bilirubin Negative Urine Urobilinogen Normal Ur Leukocyte Esterase Negative Urine RBC 0 SEEN Urine WBC 0 SEEN Ur Squamous Epith Cells 0 SEEN Urine Bacteria RARE Urine Mucus 0 SEEN Discharge Plan Triage Chief Complaint: General Illness ED Provider: Collins Reece Dx/Rx/DC Orders Clinical Impression: Viral syndrome, Nausea Instructions: Nausea Vomit Control Prescriptions: New ondansetron 4 mg tablet,disintegrating 4 mg PO Q8H PRN (Reason: nausea and vomiting) Qty: 10 RF: 0 Stand Alone Forms: ED Work / School Excuse Primary Care Provider: Care Physician,No Primary Referrals: Layo Leon MD [STAFF PHYSICIAN] - 3-5 Days if not improving Care Physician,No Primary [Primary Care Provider] - Disposition Disposition: Home, Self Care
[2021-10-19] MEDS: Ondansetron ODT 4 MG Tablet PO (20:55)
[2021-10-19 21:23] LABS: Mucous, Urine 0 SEEN /hpf (<or=2+); Red Blood Cells-Urine 0 SEEN /hpf (0-5); Squamous Epithelial Cells - UA 0 SEEN /hpf (0-5); White Blood Cells 0 SEEN /hpf (0-5)
[2021-10-19 21:27] LABS: Color, Urine Yellow (Yellow); Glucose, Dipstick Normal (Normal); Ketone-Dipstick Negative (Negative); Leukocyte Esterase-Dipstick Negative /ul (Negative); Nitrite-Dipstick Negative (Negative); Occult Blood-Urine 10 /ul (Negative); Protein-Dipstick Negative (Negative); Specific Gravity, Urine 1.025 (1.002-1.030); Urine Bilirubin Dipstick Negative (Negative); Urine Clarity Clear (Clear); Urine Urobilinogen Normal (Normal)
[2021-10-19 21:44] LABS: Bacteria RARE /hpf (None Seen)
== END 2021-10-19 22:11 | disposition home or self-care (01) ==
PROVIDERS: Emergency Provider Emergency Medicine; Visit Provider Emergency Medicine
DX: B34.9 Viral infection, unspecified (principal); R11.0 Nausea; F17.220 Nicotine dependence, chewing tobacco, uncomplicated
CPT/HCPCS: 81001; 87811; 99283

== ENCOUNTER 2022-04-06 14:15 | Emergency (ER) | payer MEDICAID, SELFPAY ==
[2022-04-06 14:15] VITALS: BP 127/86; PULSE 99; RESP 14; TEMP 36.9; O2SAT 99; BMI 23.2
--- NOTE | 2022-04-06 14:25 | RAD_ITS ---
STUDY: X-RAY - LEFT FOOT CLINICAL: Male, 51 years old. Dropped heavy object onto the third digit. TECHNIQUE: 3 view(s) of the foot. COMPARISON: None. FINDINGS: Normal talus, calcaneus, and tarsal bones. Normal visualized subtalar, talonavicular, calcaneocuboid, tarsal and tarsometatarsal articulations. Normal metatarsi. Normal metatarsophalangeal joint of the great toe. Normal tibial and fibular sesamoid bones. Normal interphalangeal joint of the great toe. Normal phalanges of the great toe. Normal second through fifth metatarsophalangeal joints. Normal interphalangeal joints and phalanges of the lesser toes. The soft tissue structures are unremarkable. RAD/Foot min 3 Views IMPRESSION: Normal x-ray examination of the foot. Electronically Signed: Diogo León MD at 14:36 EST ,
--- NOTE | 2022-04-06 14:39 | EDS_ITS ---
HPI History of Present Illness HPI Narrative: Patient presents with injury to his left third toe that occurred today. Patient states he grabbed 2 balls off of counter and one of them fell and hit his left third toe. Patient states the pain is worse with movement and with palpation. Patient states nothing makes it better. Patient denies any paresthesias or weakness. Patient denies any other injuries. Chief Complaint: Lower Extremity Injury Informant: patient Occured/Mechanism Mechanism/Context: Yes blunt trauma and Yes direct blow Onset/Context/Timing Onset: Today Context: Sudden Onset Timing: Continuous Location: Left third toe Worsened by: Palpation, movement Relieved by: Nothing Associated Symptoms Associated Symptoms: Negative for Parasthesia, Weakness or Loss of Funtion [facility] Medical History Acute bronchitis, unspecified Alcohol abuse Asthma Chewing tobacco use Fever Former smoker GERD (gastroesophageal reflux disease) Lab test negative for COVID-19 virus Seizures Seizures SOB (shortness of breath) URI (upper respiratory infection) Vision loss of left eye Home Medications ondansetron 4 mg disintegrating tablet 4 mg PO Q8H PRN nausea and vomiting #10 tabs 10/19/21 [Rx Last Taken Unknown] Allergy/AdvReac Type Severity Reaction Status Date / Time No Known Allergies Allergy Verified 04/06/22 14:17 Surgical History History of hernia repair Social History household members: significant other Smoking Status: Current every day smoker tobacco type: smokeless tobacco Smokeless tobacco user: chewing tobacco alcohol intake: current alcohol intake frequency: 0-2 drinks per day details: Sober for 1 month substance use type: does not use ROS ROS ED Constitutional Constitutional ED: Denies chills or fever(s) Eyes Eyes: Denies blurry vision or change in vision ENT ENT ED: Denies rhinorrhea or sore throat Cardiovascular Cardiovascular: Denies chest pain or palpitations Respiratory/Chest Respiratory/Chest: Denies cough or dyspnea Gastrointestinal Gastrointestinal: Denies nausea or vomiting Genitourinary Genitourinary ED: Denies dysuria or hematuria Musculoskeletal Musculoskeletal: Denies back pain or neck pain Integumentary Denies abscess or rash Neurologic Neurologic: Denies headache(s) or weakness Allergic/Immunologic Allergic/Immunologic ED: Denies mouth swelling or urticaria EXAM Physical Exam Const Vital Signs: 04/06/22 14:15 Temperature 98.5 F Temperature Source Temporal Pulse Rate 99 Respiratory Rate 14 Blood Pressure 127/86 H Blood Pressure Mean 99 Pulse Ox 99 Oxygen Delivery Method Room Air Positive well nourished and well developed General Appearance ED: well developed and NAD HEENT Reports moist mucous membranes Neck full ROM and supple Extremity Extremity Narrative: There is tenderness and mild edema over the distal phalanx of the left third toe. There is a superficial abrasion on the dorsal aspect. There is no active bleeding. There is no bony crepitance or step-off. There is no deformity noted. Range of motion was limited in flexion extension of the DIP joint of the left third toe secondary to pain. Sensation was intact to light touch in all digits. Capillary refill was less than 2 seconds in all digits. Pedal pulses are equal bilaterally. Neuro oriented x3, CN's II-XII intact bilaterally, moves all extremities and no s ensory deficits noted Sensorium / Orientation: alert Motor Exam: strength 5/5 throughout Psych mental status grossly normal MDM MDM MDM Narrative Medical decision making narrative: X-rays of the left foot were obtained. There are 3 views. On my interpretation, there is no acute fracture. There is no dislocation. There is no soft tissue swelling. Radiologist also interpreted the x-rays and agrees. Patient was advised of his findings. The abrasion was dressed with a Band-Aid dressing. Patient was instructed to take Tylenol or ibuprofen as needed for pain. Patient was instructed to follow-up with his primary care physician in 5 to 7 days. Patient understood and was agreeable with the plan. All questions were answered. Radiography Diagnostic Testing: Clinical Impression(s) from Imaging Studies Foot X-Ray 04/06/22 14:25 IMPRESSION: Normal x-ray examination of the foot. Electronically Signed: Diogo León MD at 14:36 EST , Discharge Plan Triage Chief Complaint: Lower Extremity Injury ED Provider: Sammy Evans Dx/Rx/DC Orders Clinical Impression: Contusion of third toe of left foot Instructions: ED Finger or Toe Contusion Prescriptions: No Action ondansetron 4 mg tablet,disintegrating 4 mg PO Q8H PRN (Reason: nausea and vomiting) Qty: 10 0RF Primary Care Provider: Care Physician,No Primary Referrals: Camryn High [Non-Staff] - 5-7 Days Care Physician,No Primary [Primary Care Provider] - Disposition Disposition: Home, Self Care
[2022-04-06 15:54] VITALS: RESP 18
== END 2022-04-06 15:57 | disposition home or self-care (01) ==
PROVIDERS: Emergency Provider Emergency Medicine; Visit Provider Emergency Medicine
DX: S90.122A Contusion of left lesser toe(s) without damage to nail, initial encounter (principal); F17.220 Nicotine dependence, chewing tobacco, uncomplicated; W21.00XA Struck by hit or thrown ball, unspecified type, initial encounter
CPT/HCPCS: 73630; 99282

== ENCOUNTER 2022-12-21 19:49 | Emergency (ER) | payer MEDICAID, SELFPAY ==
[2022-12-21 19:50] VITALS: BP 117/84; PULSE 86; RESP 19; TEMP 36.6; O2SAT 99; BMI 20.8
--- NOTE | 2022-12-21 20:53 | EDS_ITS ---
HPI <NILTON Resendiz - Last Filed: 12/21/22 21:01> History of Present Illness Chief Complaint: General Illness Narrative Narrative: Patient presenting today with his friend due to concerns for color changes around his eyes. His friend reports, I felt like the skin around his eyes yesterday were blue and then they were green and then they seemed black and yellow. Patient does not think that there is any abnormality to his eyes or to the skin surrounding them. He reports a history of hypokalemia and hypocalcemia and would like laboratory work performed. He denies any fever, chills, chest pain, shortness of breath, abdominal pain, nausea, vomiting, urinary symptoms, diarrhea. PMH includes alcohol abuse on Vivitrol, GERD, and epilepsy. PFSH <NILTON Resendiz - Last Filed: 12/21/22 21:01> PFSH Medical History Acute bronchitis, unspecified Alcohol abuse Asthma Chewing tobacco use Fever Former smoker GERD (gastroesophageal reflux disease) Lab test negative for COVID-19 virus Laceration of left index finger Laceration of right thumb Seizures Seizures SOB (shortness of breath) URI (upper respiratory infection) Vision loss of left eye Home Medications NK 12/13/22 [History Last Taken Unknown] Allergy/AdvReac Type Severity Reaction Status Date / Time No Known Allergies Allergy Verified 12/21/22 19:51 Surgical History History of hernia repair Social History household members: significant other Smoking Status: Current every day smoker tobacco type: smokeless tobacco Smokeless tobacco user: chewing tobacco alcohol intake: current alcohol intake frequency: 0-2 drinks per day details: Sober for 1 month substance use type: does not use ROS <NILTON Resendiz - Last Filed: 12/21/22 21:01> ROS ED Constitutional Constitutional ED: Denies chills or fever(s) Eyes Eyes: Denies blurry vision, change in vision or diplopia Cardiovascular Cardiovascular: Denies chest pain Respiratory/Chest Respiratory/Chest: Denies cough or dyspnea Gastrointestinal Gastrointestinal: Denies abdominal pain, diarrhea, nausea or vomiting Genitourinary Genitourinary ED: Denies dysuria, hematuria or urinary urgency Musculoskeletal Musculoskeletal: Denies arthralgias or myalgias Integumentary Denies Abrasions or rash Neurologic Neurologic: Denies weakness EXAM <NILTON Resendiz - Last Filed: 12/21/22 21:01> Physical Exam Const Vital Signs: 12/21/22 19:50 Temperature 98 F Temperature Source Temporal Pulse Rate 86 Respiratory Rate 19 H Blood Pressure 117/84 H Blood Pressure Mean 95 Pulse Ox 99 Positive well nourished, well developed and no apparent distress General Appearance ED: well developed HEENT Reports normocephalic and head/scalp atraumatic Mouth ED: Yes moist mucous membranes normal Eyes PERRL and EOMs intact bilaterally Neck full ROM and supple Chest Wall inspection of chest normal Resp normal respiratory effort and clear to auscultation bilaterally Cardio regular rate and regular rhythm GI soft to palpation, non-tender, non-distended and no masses Back/Spine normal ROM and normal to inspection Extremity normal to inspection and full ROM Neuro oriented x3, CN's II-XII intact bilaterally, moves all extremities, no focal motor deficits and no sensory deficits noted Sensorium / Orientation: awake and alert Psych mental status grossly normal and thought process normal Skin no rashes or lesions noted and no wounds <Dr. Sammy Evans, - Last Filed: 12/21/22 21:58> Physical Exam Const Vital Signs: 12/21/22 19:50 Temperature 98 F Temperature Source Temporal Pulse Rate 86 Respiratory Rate 19 H Blood Pressure 117/84 H Blood Pressure Mean 95 Pulse Ox 99 MDM <NILTON Resendiz - Last Filed: 12/21/22 21:01> [facility] Narrative Medical decision making narrative: Patient presenting today with his friend. He reports he is not sure why he is here today but his friend thinks that the color of the skin around his eyes was abnormal yesterday. I am not seeing any abnormality on exam. Patient is well- appearing and in no acute distress, vitals are unremarkable. He would like laboratory work to be obtained, this will be obtained to rule out electrolyte abnormality, anemia, leukocytosis. Lab Data Labs: Laboratory Results - last 24 hr 12/21/22 21:00 WBC 5.6 RBC 4.25 L Hgb 13.5 Hct 39.6 L MCV 93.2 MCH 31.8 MCHC 34.1 RDW Std Deviation 42.8 RDW Coeff of Jett 12.5 Plt Count 196 MPV 8.9 Immature Gran % (Auto) 0.400 Neut % (Auto) 63.8 Lymph % (Auto) 23.9 [place] % (Auto) 8.9 Eos % (Auto) 2.5 Baso % (Auto) 0.5 Absolute Neuts (auto) 3.6 Absolute Lymphs (auto) 1.34 Nucleated RBC % 0 Sodium 143 Potassium 3.5 Chloride 107 Carbon Dioxide 28.0 Anion Gap 8 BUN 18 Creatinine 0.83 Estim Creat Clear Calc 79.37 Est GFR (MDRD) Af Amer 125 Est GFR (MDRD) Non-Af 103 BUN/Creatinine Ratio 21.6 H Glucose 116 H Calcium 8.6 <Dr. Sammy Evans, DO - Last Filed: 12/21/22 21:58> [facility] Lab Data Labs: Laboratory Results - last 24 hr 12/21/22 21:00 WBC 5.6 RBC 4.25 L Hgb 13.5 Hct 39.6 L MCV 93.2 MCH 31.8 MCHC 34.1 RDW Std Deviation 42.8 RDW Coeff of Jett 12.5 Plt Count 196 MPV 8.9 Immature Gran % (Auto) 0.400 Neut % (Auto) 63.8 Lymph % (Auto) 23.9 [place] % (Auto) 8.9 Eos % (Auto) 2.5 Baso % (Auto) 0.5 Absolute Neuts (auto) 3.6 Absolute Lymphs (auto) 1.34 Nucleated RBC % 0 Sodium 143 Potassium 3.5 Chloride 107 Carbon Dioxide 28.0 Anion Gap 8 BUN 18 Creatinine 0.83 Estim Creat Clear Calc 79.37 Est GFR (MDRD) Af Amer 125 Est GFR (MDRD) Non-Af 103 BUN/Creatinine Ratio 21.6 H Glucose 116 H Calcium 8.6 Treatment and Re-Evaluation :: I have personally performed a face to face assessment of the patient and have reviewed the SARA Note. I performed a substantive portion of the visit including all aspects of the following. My adams findings include: History: Patient presents with discoloration around his eyes that began yesterday. Patient states that he had some greenish discoloration around his eyes yesterday. Patient states it appears to be more yellow today. Patient denies any trauma or injury. Patient denies any visual changes. Patient denies any bleeding. Patient admits to an abrasion over his left forehead. Exam: Vital signs are stable. Patient was afebrile. Patient is in no acute distress. Pupils are equal, round, reactive to light bilaterally. Extraocular muscles are intact. Conjunctiva is clear. There is no periorbital tenderness, edema, or ecchymosis. There is no discoloration noted. Cranial nerves II through XII are intact. There are no focal motor or sensory deficits noted. Heart was regular rate and rhythm. Lungs are clear and equal bilateral. Abdomen is soft. Bowel sounds are normal. There is no tenderness. Medical Decision Making: Differential diagnosis is contusion, electrolyte abnormality, and anemia. CBC will be obtained to assess for anemia. Basic metabolic profile will be obtained to assess for electrolyte abnormality. CBC was reviewed and was normal limits. Basic metabolic profile was reviewed. Glucose was slightly elevated at 116 but was otherwise within normal limits. Patient was advised of his findings. Patient was instructed to follow-up with h is primary care physician in 5 to 7 days. Patient understood and was agreeable with the plan. All questions were answered. Discharge Plan Triage Chief Complaint: General Illness ED Midlevel Provider: Nida Carballo ED Provider: Sammy Evans Dx/Rx/DC Orders Clinical Impression: Abrasion of forehead Instructions: ED Abrasion Prescriptions: No Action NK Primary Care Provider: Care Physician,No Primary Referrals: Care Physician,No Primary [Primary Care Provider] - Clinic,NOW [Non-Staff] - As Needed Disposition Disposition: Home, Self Care
[2022-12-21 21:10] LABS: Absolute Lymphocyte Count 1.34 X10^3/uL (0.83-4.51); Absolute Neutrophil Count 3.6 X10^3/uL (2.0-7.7); Basophil# 0.03 X10^3/uL; Basophil% 0.5 % (0-1); Eosinophil# 0.14 X10^3/uL; Eosinophils% 2.5 % (0-5); Hematocrit 39.6 % (40-54); Hemoglobin 13.5 g/dL (13.0-16.5); Lymphocyte # 1.34 X10^3/ul (0.83-4.51); Lymphocyte % 23.9 % (19-41); Mean Corp Hgb Conc 34.1 g/dL (32-36); Mean Corpuscular Hgb 31.8 pg (27.0-32.0); Mean Corpuscular Volume 93.2 fL (80-94); Mean Platelet Vol. 8.9 fl (6.2-12.0); Monocyte% 8.9 % (0-10); NRBC Flagged by Analyzer 0 % (0-5); Neutrophil # 3.57 X10^3/uL (2.7-7.7); Neutrophil % 63.8 % (47-70); Platelet Count 196 K/mm3 (150-450); RBC Distribution Width CV 12.5 % (11.6-14.6); RBC Distribution Width SD 42.8 fl (35.1-43.9); Red Blood Count 4.25 M/mm3 (4.6-6.2); White Blood Count 5.6 K/mm3 (4.4-11.0)
[2022-12-21 21:24] LABS: Anion Gap 8 (5-15); BUN 18 mg/dL (7-18); BUN/Creat Ratio 21.6 RATIO (10-20); Calcium,Total 8.6 mg/dL (8.5-10.1); Chloride 107 mmol/L (98-107); Creatinine, Serum 0.83 mg/dL (0.70-1.30); EST Glomerular Filtration Rate 103 mL/min (>60); Est Glom Filt Rate - Afr Amer 125 mL/min (>60); Estimated Creatinine Clearance 79.37 ml/min; Glucose 116 mg/dL (74-106); Potassium 3.5 mmol/L (3.5-5.1); Sodium Level 143 mmol/L (136-145)
[2022-12-21 22:09] VITALS: BP 114/71; PULSE 83; RESP 14; O2SAT 97
== END 2022-12-21 22:15 | disposition home or self-care (01) ==
PROVIDERS: Physician Assistant; Emergency Provider Emergency Medicine; Visit Provider Emergency Medicine
DX: S00.81XA Abrasion of other part of head, initial encounter (principal); G40.909 Epilepsy, unspecified, not intractable, without status epilepticus; F17.220 Nicotine dependence, chewing tobacco, uncomplicated; K21.9 Gastro-esophageal reflux disease without esophagitis; Z79.899 Other long term (current) drug therapy; J45.909 Unspecified asthma, uncomplicated; X58.XXXA Exposure to other specified factors, initial encounter
CPT/HCPCS: 80048; 85025; 99282; A4216

== ENCOUNTER → 2023-03-13 | Outpatient (CLI) | payer MEDICAID, SELFPAY ==
--- NOTE | 2023-03-13 14:25 | RAD_ITS ---
STUDY: X-RAY - LUMBAR SPINE REASON FOR EXAM: Male, 52 years old. DORSOPATHIES TECHNIQUE: 3 view(s) of the lumbar spine were obtained. COMPARISON: None FINDINGS: There is an exaggerated lumbar lordosis. There is no substantial scoliosis. There is a normal alignment of the vertebrae. There is multilevel endplate spondylosis of the lumbar vertebrae. There is multi-level degenerative disc disease with multi-level disc space narrowing. There is no demonstrated fracture. The soft tissue structures are unremarkable. RAD/Lumbar Spine 2 or 3 Views IMPRESSION: Degenerative changes of the spine, as detailed above. No acute abnormalities. Electronically Signed: Reji Laureano MD at 16:37 EDT ,
[2023-03-13 14:49] LABS: Absolute Neutrophil Count 4.4 X10^3/uL (2.0-7.7); Basophil# 0.03 X10^3/uL; Basophil% 0.5 % (0-1); Eosinophil# 0.05 X10^3/uL; Eosinophils% 0.8 % (0-5); Hemoglobin 15.4 g/dL (13.0-16.5); Lymphocyte % 16.8 % (19-41); Mean Corpuscular Hgb 32.1 pg (27.0-32.0); Mean Corpuscular Volume 91.7 fL (80-94); Mean Platelet Vol. 9.1 fl (6.2-12.0); Monocyte# 0.41 X10^3/uL; Monocyte% 6.9 % (0-10); NRBC Flagged by Analyzer 0 % (0-5); Neutrophil # 4.44 X10^3/uL (2.7-7.7); Neutrophil % 74.7 % (47-70); Platelet Count 232 K/mm3 (150-450); RBC Distribution Width CV 12.4 % (11.6-14.6)
[2023-03-13 15:36] LABS: AST(SGOT) 23 U/L (15-37); Alanine Aminotransfer ALT/SGPT 38 U/L (16-61); Albumin, Serum 3.7 g/dL (3.2-5.0); Alkaline Phosphatase 63 U/L (45-117); Anion Gap 6 (5-15); BUN 17 mg/dL (7-18); BUN/Creat Ratio 16.2 RATIO (10-20); Calcium,Total 8.9 mg/dL (8.5-10.1); Chloride 105 mmol/L (98-107); Creatinine, Serum 1.05 mg/dL (0.70-1.30); EST Glomerular Filtration Rate 79 mL/min (>60); Est Glom Filt Rate - Afr Amer 96 mL/min (>60); Globulin 3.8 g/dL (2.2-4.2); Glucose 132 mg/dL (74-106); PSA,Total - Annual Screen 0.65 ng/mL (0.00-4.00); Potassium 3.7 mmol/L (3.5-5.1); Protein, Total 7.5 g/dL (6.4-8.2); Sodium Level 138 mmol/L (136-145); Thyroid Stim Hormone (TSH) 1.23 uIU/mL (0.358-3.74)
[2023-03-13 16:28] LABS: Vitamin D,25 Hydroxy 26.2 ng/mL
[2023-03-13 19:55] LABS: Hemoglobin A1c 5.2 % (3.8-5.6)
== END | disposition home or self-care (01) ==
LOC: LAB 14:03
DX: M53.80 Other specified dorsopathies, site unspecified (principal); R63.4 Abnormal weight loss; E55.9 Vitamin D deficiency, unspecified; Z12.5 Encounter for screening for malignant neoplasm of prostate
CPT/HCPCS: 84153; 36415; 72100; 80053; 82306; 83036; 84443; 85025; G0103

== ENCOUNTER 2023-03-26 20:19 | Emergency (ER) | payer MEDICAID, SELFPAY ==
[2023-03-26 20:20] VITALS: BP 123/85; PULSE 94; RESP 16; TEMP 36.4; O2SAT 96; BMI 20.7
--- NOTE | 2023-03-26 20:41 | EDS_ITS ---
HPI History of Present Illness Chief Complaint: General Illness Detail of Chief Complaint: Nausea, diarrhea Informant: patient Narrative Narrative: Patient presents with 3-day history of diarrhea. He states that his stomach has been upset. He has not had any vomiting. He does note that he has been urinating a lot and has excessive thirst. He has been told in the past that he was borderline diabetic. He denies fever or chills. [facility] Medical History Acute bronchitis, unspecified Alcohol abuse Asthma Chewing tobacco use Fever Former smoker GERD (gastroesophageal reflux disease) Lab test negative for COVID-19 virus Laceration of left index finger Laceration of right thumb Seizures Seizures SOB (shortness of breath) URI (upper respiratory infection) Vision loss of left eye Home Medications NK 12/13/22 [History Last Taken Unknown] Allergy/AdvReac Type Severity Reaction Status Date / Time No Known Allergies Allergy Verified 12/21/22 19:51 Surgical History History of hernia repair Social History household members: significant other Smoking Status: Former smoker Smokeless tobacco user: chewing tobacco alcohol intake: current alcohol intake frequency: 0-2 drinks per day details: Sober for 1 month substance use type: does not use ROS ROS ED Constitutional Constitutional ED: Denies chills or fever(s) Eyes Eyes: Denies change in vision or discharge from eye(s) ENT ENT ED: Denies discharge from eye(s), rhinorrhea or sore throat Cardiovascular Cardiovascular: Denies chest pain or palpitations Respiratory/Chest Respiratory/Chest: Denies cough or dyspnea Gastrointestinal Gastrointestinal: Reports diarrhea and nausea; Denies abdominal pain or vomiting Genitourinary Genitourinary ED: Reports urinary frequency; Denies dysuria Musculoskeletal Musculoskeletal: Denies back pain or extremity pain Integumentary Denies Abrasions or rash Neurologic Neurologic: Denies headache(s) or weakness Psychiatric Psychiatric: Denies anxiety or depression Endocrine Endocrinology: Reports polydipsia and polyuria Allergic/Immunologic Allergic/Immunologic ED: Denies lip swelling or urticaria EXAM Physical Exam Const Vital Signs: 03/26/23 20:20 03/26/23 20:55 Temperature 97.5 F L Temperature Source Temporal Pulse Rate 94 Respiratory Rate 16 Respiratory Effort Normal Respiratory Pattern Normal Blood Pressure 123/85 H Blood Pressure Mean 97 Pulse Ox 96 Oxygen Delivery Method Room Air Positive well nourished and well developed General Appearance ED: well developed HEENT Reports normocephalic and head/scalp atraumatic Eyes PERRL and EOMs intact bilaterally Neck supple Chest Wall inspection of chest normal and palpation of chest normal Resp normal respiratory effort and clear to auscultation bilaterally Cardio regular rate and regular rhythm GI non-tender Auscultation: hypoactive bowel sounds Palpation: soft Extremity normal to inspection Neuro oriented x3 and no sensory deficits noted Sensorium / Orientation: alert Motor Exam: strength 5/5 throughout Psych mental status grossly normal Skin no rashes or lesions noted MDM MDM MDM Narrative Medical decision making narrative: IV line established. Patient given IV fluids. Labwork obtained to evaluate for leukocytosis, anemia, and electrolyte derangement. Urinalysis obtained to evaluate for infection/hematuria. History & Record Review Discussion w/independent historian: Patient Lab Data Attestation: I reviewed the patient's lab results. Labs: Laboratory Results - last 24 hr 03/26/23 03/26/23 20:57 21:01 WBC 7.3 RBC 4.48 L Hgb 14.3 Hct 42.0 MCV 93.8 MCH 31.9 MCHC 34.0 RDW Std Deviation 42.6 RDW Coeff of Jett 12.3 Plt Count 212 MPV 8.9 Immature Gran % (Auto) 0.300 Neut % (Auto) 77.0 H Lymph % (Auto) 12.5 L [place] % (Auto) 7.7 Eos % (Auto) 2.1 Baso % (Auto) 0.4 Absolute Neuts (auto) 5.6 Absolute Lymphs (auto) 0.91 Nucleated RBC % 0 Sodium 144 Potassium 3.6 Chloride 110 H Carbon Dioxide 30.0 Anion Gap 4 L BUN 15 Creatinine 0.92 Estim Creat Clear Calc 71.18 Est GFR (MDRD) Af Amer 112 Est GFR (MDRD) Non-Af 92 BUN/Creatinine Ratio 16.3 Glucose 112 H Calcium 9.3 Urine Color Yellow Urine Clarity Clear Urine pH 6.0 Ur Specific [place] 1.015 Urine Protein Negative Urine Glucose (UA) Normal Urine Ketones Negative Urine Occult Blood Negative Urine Nitrite Negative Urine Bilirubin Negative Urine Urobilinogen Normal Ur Leukocyte Esterase Negative Urine RBC 0 SEEN Urine WBC 0-5 SEEN Ur Squamous Epith Cells 0 SEEN Urine Bacteria 0 SEEN Urine Mucus 0 SEEN Treatment and Re-Evaluation :: CBC was normal white count 7.3 with a hemoglobin of 14.3. Chemistry studies unremarkable with normal renal function. Glucose is normal at 112. Urinalysis reveals no ketones and no glucose. No evidence of infection. Repeat evaluation patient resting comfortably. He is reassured with her work-up. I believe that he likely has a viral GI bug giving him diarrhea. His increased thirst and urination is to make up for his fluid losses. He will continue supportive care. I will give him a work note for today. Discharge Plan Triage Chief Complaint: General Illness ED Provider: Jennie Saeed Dx/Rx/DC Orders Clinical Impression: Gastroenteritis Instructions: ED Gastroenteritis, Noninfectious Prescriptions: No Action NK Stand Alone Forms: ED Work / School Excuse Primary Care Provider: [facility] Camryn Ratliff Referrals: [facility] Camryn Ratliff [Primary Care Provider] - 1 Week if not improving Disposition Disposition: Home, Self Care
[2023-03-26] MEDS: Ondansetron 4 MG/2 ML Vial IV (20:58)
[2023-03-26] MEDS: 0.9% Normal Saline (1000mL) 1,000 ML 1000 ML IV (20:58)
[2023-03-26 21:11] LABS: Bacteria 0 SEEN /hpf (None Seen); Mucous, Urine 0 SEEN /hpf (<or=2+); Red Blood Cells-Urine 0 SEEN /hpf (0-5); Squamous Epithelial Cells - UA 0 SEEN /hpf (0-5)
[2023-03-26 21:12] LABS: Absolute Lymphocyte Count 0.91 X10^3/uL (0.83-4.51); Absolute Neutrophil Count 5.6 X10^3/uL (2.0-7.7); Basophil# 0.03 X10^3/uL; Basophil% 0.4 % (0-1); Eosinophil# 0.15 X10^3/uL; Eosinophils% 2.1 % (0-5); Hemoglobin 14.3 g/dL (13.0-16.5); Lymphocyte # 0.91 X10^3/ul (0.83-4.51); Lymphocyte % 12.5 % (19-41); Mean Corpuscular Hgb 31.9 pg (27.0-32.0); Mean Corpuscular Volume 93.8 fL (80-94); Mean Platelet Vol. 8.9 fl (6.2-12.0); Monocyte# 0.56 X10^3/uL; Monocyte% 7.7 % (0-10); NRBC Flagged by Analyzer 0 % (0-5); Neutrophil # 5.63 X10^3/uL (2.7-7.7); Platelet Count 212 K/mm3 (150-450); RBC Distribution Width CV 12.3 % (11.6-14.6); RBC Distribution Width SD 42.6 fl (35.1-43.9); Red Blood Count 4.48 M/mm3 (4.6-6.2); White Blood Count 7.3 K/mm3 (4.4-11.0)
[2023-03-26 21:54] LABS: Color, Urine Yellow (Yellow); Glucose, Dipstick Normal (Normal); Ketone-Dipstick Negative (Negative); Leukocyte Esterase-Dipstick Negative /ul (Negative); Nitrite-Dipstick Negative (Negative); Occult Blood-Urine Negative /ul (Negative); Protein-Dipstick Negative (Negative); Specific Gravity, Urine 1.015 (1.002-1.030); Urine Bilirubin Dipstick Negative (Negative); Urine Clarity Clear (Clear); Urine Urobilinogen Normal (Normal)
[2023-03-26 21:57] LABS: Anion Gap 4 (5-15); BUN 15 mg/dL (7-18); BUN/Creat Ratio 16.3 RATIO (10-20); Calcium,Total 9.3 mg/dL (8.5-10.1); Chloride 110 mmol/L (98-107); Creatinine, Serum 0.92 mg/dL (0.70-1.30); EST Glomerular Filtration Rate 92 mL/min (>60); Est Glom Filt Rate - Afr Amer 112 mL/min (>60); Estimated Creatinine Clearance 71.18 ml/min; Glucose 112 mg/dL (74-106); Potassium 3.6 mmol/L (3.5-5.1); Sodium Level 144 mmol/L (136-145)
[2023-03-26 22:02] LABS: White Blood Cells 0-5 SEEN /hpf (0-5)
[2023-03-26 22:17] VITALS: BP 120/90; PULSE 69; RESP 12; O2SAT 99
== END 2023-03-26 22:20 | disposition home or self-care (01) ==
PROVIDERS: Emergency Provider Emergency Medicine; Visit Provider Emergency Medicine
DX: K52.9 Noninfective gastroenteritis and colitis, unspecified (principal); R73.03 Prediabetes; J45.909 Unspecified asthma, uncomplicated; F17.220 Nicotine dependence, chewing tobacco, uncomplicated; R35.0 Frequency of micturition; R63.1 Polydipsia; R35.89 Other polyuria
CPT/HCPCS: 80048; 81001; 85025; 96361; 96374; 99282; J7030; A4216; J2405

== ENCOUNTER 2023-06-06 14:52 | Outpatient (RCR) | payer MEDICAID, SELFPAY | END 2023-06-27 23:59 | LOC: NS 14:52 | PROVIDERS: Referring Provider Nurse Practitioner Family; Visit Provider Nurse Practitioner Family | DX: Z71.3 Dietary counseling and surveillance (principal); R63.4 Abnormal weight loss | CPT/HCPCS: 97802 ==

== ENCOUNTER 2023-06-18 17:00 | Outpatient (RCR) | payer MEDICAID, SELFPAY ==
--- NOTE | 2023-03-20 09:42 | HP.SP.EV_ITS ---
History History Date of Eval: 03/19/23 Attending Doctor: MIKE Reason for Referral: CHRONIC SPEECH IMPEDIMENT Medical Diagnosis (from RX): Articulation Deficits Date of Onset of Diagnosis: 03/19/23 Previous speech therapy: Yes Results: In school Other Relevant Medical History/Diagnoses/Surgery: ACID reflux, epilepsy - Pt reported he has not had a seizure in a long time. Medications related to this diagnosis: None Smoking Status: Former smoker Hx Smoking Cessation Date: 05/28/90 Hx Tobacco Use: No Pain Is pain an issue with your current prescribed condition?: No Personal Preferred language: Bulgarian Patient Allergies Allergies Allergies: Allergies No Known Allergies Allergy (Verified 12/21/22 19:51) GFTA-3 GFTA-3 GFTA-3 Administered: Yes GFTA-3: The Toussaint-Fristoe Test of Articulation-3 (GFTA-3) is used to assess an individual?s articulation of the consonant sounds of Standard [place]ian [place]ian. It provides a wide range of information by sampling both spontaneous and imitative sound production, including single words and conversational speech. This assessment instrument is appropriate for clients 2 years of age through 21 years, 11 months of age, measures speech sound production in the word initial, medial and final position. Using 23 consonants and 16 consonant clusters in multiple opportunities, this evaluation of sound production uses indications of substitutions, distortions and omissions to describe speech sounds at the word level. In addition to assessing speech sound production in individual words, the assessment also evaluates connected speech by eliciting sentences and conversational speech from the client through story retelling. A third component of the GFTA-3 is a stimulability assessment of individual phonemes at the word, and sentence levels. The results are as followed (mean standard score = 100, standard deviation = 15) 115 and above is above average, 86 to 114 is average, 78 to 85 is borderline/marginal/at risk, 71 to 77 is low/moderate and 70 and below is very low/severe. The growth scale value measures exchange floor manager time. Date: 03/19/23 Sounds in words Raw Score: 37 Test completed via: Spontaneous productions Errors with Sounds Fricatives: v, voiced th, unvoiced th, s, z and sh Affricates: ch and j Liquids: l, prevocalic r and vocalic r Clusters: br, dr, fr, kr, sl, sp, st, sw and tr Intelligibility Intelligibility: Intelligibility to this therapist was 95%. Reference: Neuro-QoL instrument HDQLIFE - Speech Difficulties In the past 7 days. It was difficult for other people to understand me.: Never Is was difficult to speak clearly?: Never In the past 7 days.. How often did you limit your social activites because you had difficulty speaking?: Never In the past 7 days... I had trouble speaking.: Not at all I was frustrated by my speech difficulties.: Not at all How much DIFFICULTY do you have... ...saying what you want to say?: No difficulty Score HDQLIFE Speech Difficulties Raw Score: 6 HDQLIFE Speech Difficulties T - Score: 38 Radiation Oncology Patient Plan Plan Plan: Skilled direct speech therapy is warranted to target articulation through the use of verbal and visual modeling, verbal, visual, and tactile cuing, repeated practice, and immediate feedback. Delays in articulation can negatively impact the patient?s ability to express wants and needs effectively and communicate with others in a variety of environments and situations. Recommendations Treatment Warranted: Yes Treatment Warranted: Speech Sound Production Progress Prognosis: Good Frequency Frequency: 1x/Week Duration: 6 Months Visits in this POC: 24 Patient/Family Goal Patient/Family Goal: Patient stated his goal is to make his sounds more clear. Goals that are Established Determination:: Goals will be added/modified as deemed necessary and appropriate. Therapy will be discontinued when results of re-evaluation indic ate therapy is no longer needed or lack of progress has been documented. Goal #1-5 Goal #1: Patient will produce /s,z/ in words, phrases, sentences with 90% accuracy on 2/3 consecutive sessions. Goal #2: Patient will produce th in words, phrases, sentences with 90% accuracy on 2/3 consecutive sessions. Goal #3: Patient will produce ch, sh in words, phrases, sentences with 90% accuracy on 2/3 consecutive sessions. Education Patient Instruction Patient Education: Diagnosis, Treatment Plan and Goals Person Taught: Patient Response to teaching: Verbalize understanding
--- NOTE | 2023-09-04 08:44 | HP.SP.DC ---
ST Discharge Summary Discharged: Discharge: Fabricio Vizcaino is discharged from speech therapy at [facility] as of 06/18/23 at patient?s request. He was evaluated on 03/20/23 for articulation deficits. He stated that he was referred to speech therapy because his friends stated he needed to attend to make his speech better. He attended 7 visits after his evaluation. His goals focused on the sounds of s,z,th,ch,sh. He made limited progress. He was able to produce ?th? in structured activities but at times lacked carry over. Other sounds had limited progress and lacked carry over into conversation. He requested discharge and this therapist is in agreement. He reported his speech deficits did not bother him. Please see reports and daily notes for complete details. Thank you for allowing me to participate in the care of your patient.
== END 2023-06-18 19:00 | disposition home or self-care (01) ==
LOC: SP 17:00
PROVIDERS: Visit Provider Nurse Practitioner Family
DX: R47.89 Other speech disturbances (principal)
CPT/HCPCS: 92507; 92522

== ENCOUNTER 2024-07-23 19:49 | Emergency (ER) | payer SELFPAY ==
[2024-07-23 19:51] VITALS: BP 121/94; PULSE 107; RESP 17; TEMP 36.4; O2SAT 98; BMI 23.0
--- NOTE | 2024-07-23 21:12 | RAD_ITS ---
PROCEDURE: CHEST PA AND LATERAL REASON FOR EXAM: Cough. TECHNIQUE: Frontal and lateral views of the chest. COMPARISON: 06/13/2020. FINDINGS: The heart size is normal. The mediastinal contour is unremarkable. The lungs are clear. The bones are unremarkable. RAD/Chest PA and Lateral IMPRESSION: NEGATIVE CHEST Reading Location: [place] [id number]
== END 2024-07-23 23:42 | disposition left against medical advice (07) ==
LOC: ED 23:46
DX: R05.9 Cough, unspecified (principal); Z53.21 Procedure and treatment not carried out due to patient leaving prior to being seen by health care provider
CPT/HCPCS: 71046; 87631

== ENCOUNTER 2024-09-29 18:21 | Emergency (ER) | payer SELFPAY ==
[2024-09-29 18:23] VITALS: BP 150/90; PULSE 97; RESP 18; TEMP 36.6; O2SAT 96; BMI 21.3
--- NOTE | 2024-09-29 18:30 | ED.RN ---
DISCUSSED PT SX WITH DR. LAGUNA. NO STROKE ALERT AT THIS TIME.
== END 2024-09-29 18:54 | disposition left against medical advice (07) ==
LOC: ED 18:57
DX: R20.0 Anesthesia of skin (principal)